=== PATIENT | female | born 1930 | race Asian ===

== ENCOUNTER 2016-12-27 08:06 | Inpatient (IN) | payer BC ==
[2016-12-27] VITALS (50 sets, daily range): BP systolic 84–167; BP diastolic 27–114; PULSE 47–125; RESP 12–24; TEMP 97.5; Ht 157.5 cm; Wt 51.7 kg
[~2016-12-27] VITALS: Ht 157.5 cm; Wt 51.7 kg
[~2016-12-27 08:06] MED LIST: ASPI-535 PO; ATOR10TA65 PO; DIGO125T73 PO; FER325 PO; FURO40TA4 PO; GABA300C16 PO; MTF1000T PO; PANT40TA4 PO; SIMV5TAB50 PO; SPIR50TA PO
[2016-12-27] MEDS ORDERED: PANTOPRAZOLE 40 MG INJ IV STA (08:07)
[2016-12-27] MEDS ORDERED: SOD CHLORIDE 0.9% 1,000 ML IV STA (08:07)
[2016-12-27] MEDS ORDERED: ONDANSETRON 4 MG INJ IV STA (08:22)
[2016-12-27] MEDS ORDERED: SOD CHLORIDE 0.9% 250 ML IV ONE (08:22)
[2016-12-27 08:39] LABS: ADD SCAN DIFF NO
[2016-12-27 08:47] LABS: BASOPHIL # 0.1 10^3/ul (0.0-0.1); BASOPHILS % 0.6 % (0.0-2.0); EOSINOPHILS # 0.4 10^3/ul (0.0-0.5); EOSINOPHILS % 2.9 % (0.0-7.0); HEMATOCRIT 21.9 % (37.0-47.0); HEMOGLOBIN 7.3 g/dl (12.0-16.0); LYMPHOCYTES # 2.2 10^3/ul (0.8-2.9); LYMPHOCYTES % 17.3 % (15.0-51.0); MEAN CORPUSCULAR HGB CONC 33.3 g/dl (32.0-37.0); MEAN CORPUSCULAR VOLUME 99.1 fl (82.0-101.0); MEAN PLATELET VOLUME 10.4 fl (7.4-10.4); MONOCYTES % 7.6 % (0.0-11.0); NEUTROPHIL # 8.9 10^3/ul (1.6-7.5); NEUTROPHILS % 70.6 % (39.0-77.0); PLATELET COUNT 166 10^3/UL (140-415); RED BLOOD COUNT 2.21 10^6/ul (4.20-5.40); RED CELL DISTRIBUTION WIDTH 14.8 % (11.5-14.5); WHITE BLOOD COUNT 12.6 10^3/ul (4.8-10.8)
[2016-12-27 08:56] LABS: CHLORIDE 94 mmol/L (97-110); INR 1.34; POTASSIUM 4.6 mmol/L (3.5-5.1); PROTIME 16.7 Sec (12.2-14.2); PT RATIO 1.3; SODIUM 128 mmol/L (135-144)
[2016-12-27 08:57] LABS: PARTIAL THROMBOPLASTIN TIME 30.2 Sec (25.0-35.0)
[2016-12-27 08:58] LABS: BILIRUBIN,INDIRECT 0.3 mg/dl (0-1.1); BILIRUBIN,TOTAL 0.3 mg/dl (0.2-1.3); CREATININE 0.82 mg/dl (0.44-1.00)
[2016-12-27 08:59] LABS: ALANINE AMINOTRANSFERASE 31 IU/L (13-69); ALBUMIN/GLOBULIN RATIO 0.93; ALKALINE PHOSPHATASE 71 IU/L (42-121); ANION GAP 23 (8-16); ASPARTATE AMINO TRANSFERASE 36 IU/L (15-46); BLOOD UREA NITROGEN 20 mg/dl (7-20); CARBON DIOXIDE 16 mmol/L (21-31); GLUCOSE 163 mg/dl (70-220); TOTAL PROTEIN 6.2 g/dl (6.1-8.1)
[2016-12-27 09:00] LABS: CALCIUM 8.6 mg/dl (8.4-10.2)
[2016-12-27 09:13] LABS: TROPONIN-I < 0.012 ng/ml (0.00-0.12)
[2016-12-27] MEDS ORDERED: MIDAZOLAM (DRIP) 50 mg/50 mL 50 ML IV STA (09:53)
[2016-12-27] MEDS ORDERED: SUCCINYLCHOLINE CHLORIDE 100 MG/5 ML SYG IV STA (09:53)
[2016-12-27] MEDS ORDERED: ETOMIDATE 20 MG INJ IV STA (09:53)
[2016-12-27] MEDS ORDERED: HYDROmorphONE 1 MG/ML SYG IV ONE (10:00)
[2016-12-27] MEDS ORDERED: PANTOPRAZOLE IV 80 MG in SOD CHLORIDE 0.9% 100 ML IV STA (10:01)
--- NOTE | 2016-12-27 10:12 | RADRPT ---
PROCEDURE: Noncontrast CT Head. CLINICAL INDICATION: Status post fall. Trauma. TECHNIQUE: Noncontrast CT of the head was obtained. The administered radiation dose was CTDI vol = 42.93 mGy, DLP = 630.2 mGy-cm. One or more of the following dose reduction techniques were used: Aut omated exposure control, Adjustment of the mA and/or kV according to patient size, or Use of iterati ve reconstruction technique. COMPARISON: Noncontrast CT of the head from June 05, 2013. FINDINGS: There is moderate generalized cerebral volume loss. There is mild periventricular hypoattenuation suggesting chronic microvascular ischemic changes. Th ere are mild to moderate vascular calcifications within the intracranial carotid arteries. There is no loss of jackson-white differentiation to suggest acute territorial infarction. There is no acute intracranial hemorrhage or extra-axial fluid collection. There is no mass effect. No midline shift is identified. The orbits are within normal limits. The paranasal sinuses are well aerated. No destructive osseous lesion is identified. IMPRESSION: No significant change. 1. No acute intracranial hemorrhage or extra-axial fluid collection. 2. Moderate generalized cerebral volume loss. 3. Mild chronic microvascular ischemic changes. Further findings as detailed above. RPTAT: PP .Steven Velasco MD, Date Time Electronically viewed and signed by .Steven Velasco MD, MD on 12/27/2016 10:12 .F/
--- NOTE | 2016-12-27 10:29 | RADRPT ---
PROCEDURE: XR Chest. CLINICAL INDICATION: Post intubation TECHNIQUE: Chest AP portable COMPARISON: 07/12/2016 FINDINGS: The endotracheal tube is at the tiffany (pullback 3 cm). The nasogastric tube is in the stomach. The mediastinal structures are unremarkable. There is calcification of the thoracic aorta (consiste nt with atherosclerosis). The heart is normal in size and configuration. The pulmonary vascularity is normal. The lung barton are unremarkable. No consolidation is identified. The pleural spaces are unremarkable. The osseous structures are unremarkable. IMPRESSION: Endotracheal tube at the tiffany (pullback 3 cm) Calcification of the thoracic aorta (consistent with atherosclerosis). No evidence for active cardiopulmonary disease. RPTAT: HGDB .Elmer Valdivia MD, Date Time Electronically viewed and signed by .Elmer Valdivia MD, on 12/27/2016 10:28 .B/
--- NOTE | 2016-12-27 11:07 | RADRPT ---
PROCEDURE: XR Chest. CLINICAL INDICATION: Central line placement. TECHNIQUE: Single frontal view of the chest was obtained COMPARISON: Chest x-ray 12/27/2016. FINDINGS: The soft tissues are normal. There are osteophytes in the thoracic spine. There is a suboptimal is torn effort. The heart, cardiomediastinal silhouette and hilar structures are normal. The pulmonar y vasculature is normal. There are vascular calcifications in the aortic arch. Endotracheal tube re sts about 1 cm superior to the tiffany. The lungs are clear but the left diaphragm is mildly elevated . The costophrenic angles are normal. IMPRESSION: 1. The endotracheal tube rests 1 cm superior to the tiffany. It could be withdrawn about 4 cm for pos itioning closer to T3. 2. A central venous catheter enters from a left subclavian approach with its tip in the superior jackson a cava. 3. Atherosclerosis of the aortic arch. 4. Elevation of the left diaphragm with no evidence of active cardiopulmonary disease in the chest. RPTAT:AAJJ Physician Lambert Date Time Electronically viewed and signed by Physician Lambert on 12/27/2016 11:06 /
[2016-12-27 11:10] LABS: AADO2 Arterial 103.8 mmHg (7.0-24.0); Allen Test ACCEPTAB; Arterial Base Excess -17.9 mmol/L (-3.0-3); Arterial COHb 0.3 % (0.0-3.0); Arterial Fraction of Oxyhgb 98.7 % (93.0-99.0); Arterial HCO3 8.5 mmol/L (22.0-26.0); Arterial MetHb 0.6 % (0.0-1.5); Arterial Total Hemglobin 6.4 g/dl (12.0-18.0); MODE VENT - AC
[2016-12-27] MEDS ORDERED: NORepinephrine 8MG/250 ML (PMX 250 ML IV STA (11:42)
[2016-12-27] MEDS ORDERED: ACETAMINOPHEN 650 MG SUPP PR PRN (12:00)
[2016-12-27] MEDS ORDERED: BISACODYL 10 MG SUPP PR PRN (12:00)
[2016-12-27] MEDS ORDERED: CEFTRIAXONE 1 GM/50 ML (PMX) 50 ML IVPB ONE (12:00)
[2016-12-27] MEDS ORDERED: DOCUSATE SODIUM 100 MG CAP PO PRN (12:00)
[2016-12-27] MEDS ORDERED: HYDROCODONE/APAP (5/325) TAB PO PRN (12:00)
[2016-12-27] MEDS ORDERED: ONDANSETRON 4 MG INJ IV PRN (12:00)
[2016-12-27] MEDS ORDERED: ACETAMINOPHEN 325 MG TAB PO PRN (12:00)
--- NOTE | 2016-12-27 12:14 | ERA ---
ER Documentation Chief Complaint Date/Time DATE: 12/27/16 TIME: 12:13 Chief Complaint BIBA; FOUND DOWN AT HOME. RECENT ESOPHAGEAL ABLATION. VOMITED BLOOD. HPI She is an 86-year-old female with atrial fibrillation, diabetes, and hypertension who presents with vomiting blood. Please note the history and physical exam is limited as the patient is actively vomiting blood at this time. The patient was brought in by ambulance. She was found down at the side of her bed. She was found at 7 AM. She did vomit blood this morning. She came from home. Her family called 911. She takes a baby aspirin daily but says she does not take any other blood thinning medicines. ROS All systems reviewed and are negative except as per history of present illness. Medications Home Meds Reported Medications Metformin* (Glucophage*) 1,000 Mg Tablet, 1000 MG PO DAILY, #30 TAB 07/12/16 Atorvastatin Calcium (Atorvastatin Calcium) 10 Mg Tablet, 10 MG PO QHS, #30 TAB 07/12/16 Pantoprazole* (Pantoprazole*) 40 Mg Tablet.dr, 40 MG PO AC BREAKFAST, TAB 07/12/16 Gabapentin* (Gabapentin*) 300 Mg Capsule, 300 MG PO BID, #60 CAP 07/12/16 Simvastatin* (Simvastatin*) 5 Mg Tablet, 10 MG PO QHS, #30 TAB 07/12/16 Furosemide* (Furosemide*) 40 Mg Tablet, 40 MG PO DAILY, TAB 07/12/16 Spironolactone* (Aldactone*) 50 Mg Tablet, 50 MG PO DAILY, #30 TAB 07/12/16 Aspirin Ec (Aspir 81) 81 Mg Tablet.dr, 81 MG PO DAILY 05/22/12 Digoxin (Digoxin) 125 Mcg Tablet, 125 MCG PO DAILY 05/22/12 Discontinued Scripts Ferrous Sulfate* (Ferrous Sulfate*) 325 Mg Tabec, 325 MG PO BID, #60 TAB Prov:GABI [employer] 07/18/16 Allergies Allergies: Coded Allergies: No Known Drug Allergies (Verified Allergy, Mild, 12/27/16) PMhx/Soc History of Surgery: Yes Anesthesia Reaction: No Hx Neurological Disorder: No Hx Respiratory Disorders: No Hx Cardiac Disorders: Yes (A-fib, HTN) Hx Psychiatric Problems: No Hx Miscellaneous Medical Probl: Yes (A-Fib, HTN, CHF, DM, tricuspid regurgitation, peripheral neuropathy) Hx Alcohol Use: No Hx Substance Use: No Hx Tobacco Use: No Smoking Status: Never smoker FmHx Family History: No diabetes Physical Exam Vitals Vital Signs Date Time Temp Pulse Resp B/P Pulse Ox O2 Delivery O2 Flow Rate FiO2 12/27/16 11:26 87 20 90/38 100 Mechanical Ventilator 12/27/16 11:13 50 12/27/16 10:21 118 20 124/60 100 Mechanical Ventilator 12/27/16 10:16 133 20 100 100 12/27/16 09:45 118 98/48 100 Nasal Cannula 2.0 12/27/16 08:39 118 122/30 100 Nasal Cannula 2.0 12/27/16 08:23 98.4 108 17 141/42 100 12/27/16 08:15 Nasal Cannula 2 Physical Exam Const: Moderate distress secondary to nausea and vomiting Head: Atraumatic Eyes: Pale conjunctiva ENT: Normal External Ears, Nose and Mouth. Neck: Full range of motion..~ No meningismus. Resp: Clear to auscultation bilaterally Cardio: Regular rate and rhythm, no murmurs Abd: Soft, non tender, non distended. Normal bowel sounds Skin: Pale Back: No midline or flank tenderness Ext: No cyanosis, or edema Neur: Awake Result Diagram: 12/27/16 0825 12/27/16 0825 Results 24 hrs Laboratory Tests Test 12/27/16 08:25 12/27/16 09:53 White Blood Count 12.610^3/ul Red Blood Count 2.2110^6/ul Hemoglobin 7.3g/dl Hematocrit 21.9% Mean Corpuscular Volume 99.1fl Mean Corpuscular Hemoglobin 33.0pg Mean Corpuscular Hemoglobin Concent 33.3g/dl Red Cell Distribution Width 14.8% Platelet Count 19607^3/UL Mean Platelet Volume 10.4fl Neutrophils % 70.6% Lymphocytes % 17.3% Monocytes % 7.6% Eosinophils % 2.9% Basophils % 0.6% Nucleated Red Blood Cells % 0.0/100WBC Neutrophils # 8.910^3/ul Lymphocytes # 2.210^3/ul Monocytes # 1.010^3/ul Eosinophils # 0.410^3/ul Basophils # 0.110^3/ul Nucleated Red Blood Cells # 0.010^3/ul Prothrombin Time 16.7Sec Prothrombin Time Ratio 1.3 INR International Normalized Ratio 1.34 Activated Partial Thromboplast Time 30.2Sec Sodium Level 128mmol/L Potassium Level 4.6mmol/L Chloride Level 94mmol/L Carbon Dioxide Level 16mmol/L Anion Gap 23 Blood Urea Nitrogen 20mg/dl Creatinine 0.82mg/dl Glucose Level 163mg/dl Calcium Level 8.6mg/dl Total Bilirubin 0.3mg/dl Direct Bilirubin 0.00mg/dl Indirect Bilirubin 0.3mg/dl Aspartate Amino Transf (AST/SGOT) 36IU/L Alanine Aminotransferase (ALT/SGPT) 31IU/L Alkaline Phosphatase 71IU/L Troponin I < 0.012ng/ml Total Protein 6.2g/dl Albumin 3.0g/dl Globulin 3.20g/dl Albumin/Globulin Ratio 0.93 Blood Gas Specimen Source Blood arterial Arterial Blood Date Drawn 12/27/2016 11:00:57 AM Arterial Blood pH (Temp corrected) 7.201 Arterial Blood pCO2 (Temp correct) 22.1mmhg Arterial Blood pO2 (Temp corrected) 587.1mmHG Arterial Blood HCO3 8.5mmol/L Arterial Blood Base Excess -17.9mmol/L Arterial Blood Oxygen Saturation 99.6mmHG Mike Test ACCEPTAB Arterial Blood Gas Puncture Site Right Radial Arterial Blood Carboxyhemoglobin 0.3% Arterial Blood Methemoglobin 0.6% Blood Gas A-a O2 Differential 103.8mmHg Oxyhemoglobin Percent 98.7% Total Hemoglobin 6.4g/dl Blood Gas Temperature 37.0C Blood Gas Respiration Rate 20.0 Blood Gas Actual Respiration Rate 26 Blood Gas Modality VENT - AC FiO2 100.0% Blood Gas Tidal Volume 450.0mL Blood Gas Low PEEP Setting 5.0cmH2O Blood Gas Critical Value Read Back DR. ANTONIO Blood Gas Notified Whom Andie Blood Gas Notified Time 12/27/2016 11:09:57 AM Current Medications Medications (Trade) Dose Ordered Sig/Yared Route PRN Reason Start Time Stop Time Status Last Admin Dose Admin Sodium Chloride (NS) 1,000 ml @ 1,000 mls/hr Q1H STAT IV 12/27/16 08:07 12/27/16 09:06 DC 12/27/16 08:28 Pantoprazole (Protonix Iv) 40 mg ONCE STAT IV 12/27/16 08:07 12/27/16 08:08 DC 12/27/16 08:28 Ondansetron HCl 8 mg 8 mg ONCE STAT IV 12/27/16 08:22 12/27/16 08:23 DC 12/27/16 08:28 Sodium Chloride (NS) 250 ml @ 0 mls/hr Q0M ONCE IV 12/27/16 08:22 12/27/16 08:23 DC Succinylcholine Chloride (Anectine Syringe) 150 mg ONCE STAT IV 12/27/16 09:53 12/27/16 09:54 DC Etomidate (Amidate) 20 mg ONCE STAT IV 12/27/16 09:53 12/27/16 09:55 DC Hydromorphone HCl 1 mg 1 mg ONCE ONCE IV 12/27/16 10:00 12/27/16 10:01 DC Midazolam HCl 50 ml @ 3 mls/hr ONCE STAT IV 12/27/16 09:53 12/28/16 02:32 12/27/16 10:59 Pantoprazole 80 mg/Sodium Chloride 100 ml @ 10 mls/hr ONCE STAT IV 12/27/16 10:01 12/27/16 20:00 12/27/16 11:09 Pantoprazole/ Sodium Chloride (Protonix Iv/NS) 100 ml @ 10 mls/hr Q10H IV 12/27/16 12:00 UNV Ondansetron HCl (Zofran Inj) 4 mg Q6H PRN IV NAUSEA AND/OR VOMITING 12/27/16 12:00 UNV Albuterol/ Ipratropium (Duoneb) 3 ml Q2H RESP THERAPY PRN NEB SHORTNESS OF BREATH 12/27/16 12:00 UNV Acetaminophen (Tylenol Tab) 650 mg Q6H PRN PO PAIN LEVEL 1-3 OR FEVER 12/27/16 12:00 UNV Acetaminophen (Tylenol Supp) 650 mg Q4H PRN IN PAIN LEVEL 1-3 OR FEVER 12/27/16 12:00 UNV Acetaminophen/ Hydrocodone Bitart ([place] (5/325)) 1 tab Q6H PRN PO PAIN LEVEL 4-6 12/27/16 12:00 UNV Morphine Sulfate (morphine) 1 mg Q4H PRN IV PAIN LEVEL 7-10 12/27/16 12:00 UNV Docusate Sodium (Colace) 100 mg Q12H PRN PO CONSTIPATION 12/27/16 12:00 UNV Bisacodyl 10 mg 10 mg DAILY PRN IN CONSTIPATION 12/27/16 12:00 UNV Norepinephrine 250 ml @ 7.5 mls/hr ONCE STAT IV 12/27/16 11:42 12/28/16 21:01 12/27/16 12:15 Ceftriaxone Sodium 50 ml @ 100 mls/hr ONCE ONCE IVPB 12/27/16 12:00 12/27/16 12:29 Octreotide Acetate/Sodium Chloride (Sandostatin/NS) 100 ml @ 5 mls/hr Q20H IV 12/27/16 12:30 UNV Procedures/MDM EKG read by me: Rate/Rhythm: Atrial fibrillation at a rate of 108 Intervals: Normal Impression: Atrial fibrillation without obvious ischemia CT scan shows no intrarenal hemorrhage per radiology. Chest x-ray negative per radiology. Endotracheal Intubation by me: Pre assessment performed. Pre-oxygenation performed with 100% oxygen RSI: Performed w/o complication or hypoxic events. Medications as ordered. Blade: MAC 4 Glidescope ET Tube: 7.5 cm Depth: 21 cm at the lip Intubation confirmed by colorimetric CO2, equal breath sounds, quiet over the stomach. Central Line Placement by me: Patient consented, sterilely draped, full prep, gown, glove, mask, time out performed. Anesthesia: 1% lidocaine locally Location: Left subclavian Device: Multiple lumen Technique: Seldinger technique. Secured with suture. Results: Venous return from all ports with easy saline flush. No complications. Guide wire retrieved and disposed of. Chest X-ray 1V Interpreted by me: Central line in SVC, Normal soft tissue, No evidence of pneumothorax. ET tube 1 cm above the tiffany. Patient is a 86-year-old female who presents with severe GI bleed. I am concerned about an esophageal or gastric GI bleed. The patient initially was awake and talking when she came the emergency department but over the course of an hour she decompensated and became more confused. She was continuing to vomit blood and therefore the decision was made to intubate the patient. She was intubated for airway protection and respiratory failure. A central line was placed for blood product administration as well as pressors. She was started on Levophed as her blood pressure dropped below a systolic of 90. Ceftriaxone was given empirically for GI bleed. I doubt sepsis at this time. The patient will need intensive care unit. I spoke with Dr. Valenzuela from the panel team for admission as the patient has preferred [employer] insurance. Dr. Valenzuela will contact the application security architect of his choice. The patient has a poor prognosis given her age and significant bleeding. I did order 2 units of O - blood in the emergency department as the typed blood was taking too long. Critical Care: Time: 45 minutes excluding all billable procedures. Treatments/Evaluations: Close monitoring and treatment of unstable vital signs, cardiorespiratory, and neurologic status, while maintaining tight balance of fluid, respiratory, and cardiac interventions. Departure Diagnosis: Primary Impression: Respiratory failure Qualified Code: J96.00 - Acute respiratory failure, unspecified whether with hypoxia or hypercapnia Additional Impressions: GI bleed Qualified Code: K92.2 - Gastrointestinal hemorrhage, unspecified gastrointestinal hemorrhage type Vomiting Qualified Code: K92.0 - Hematemesis with nausea Anemia Qualified Code: D64.9 - Anemia, unspecified type Acidosis Condition: Critical ISAIAH ANTONIO MD Dec 27, 2016 12:14
--- NOTE | 2016-12-27 12:16 | CONS ---
Date/Time of Note Date/Time of Note DATE: 12/27/16 TIME: 12:10 Assessment/Plan Assessment/Plan Additional Assessment/Plan Hematemesis Evaluate GI bleed versus chronic iron deficiency vs other etiology History of esophageal varices Monitor H&H every 8 hours, transfuse 2 units for hemoglobin less than 7.5 Monitor labs Continue PPI and Octreotide drips EGD if clinically indicated, pt's son advised of R/B/A to procedure and provide informed consent to proceed History of esophageal varices Status post EGD July 15, 2016 : 1. Large grade IV/IV esophageal varices. 2. Post-endoscopic variceal ligation x7. Liver cirrhosis Etiology unknown Previous hepatitis panel negative Type 2 diabetes Management per Primary History of Afib Recommend cardiology consult Patient currently on aspirin Further recommendations depend on clinical course Patient seen in collaboration with Dr. Bishop Consultation Date/Type/Reason Admit Date/Time Type of Consultation: Gastroenterology Reason for Consultation Acute anemia Hx of Present Illness Mrs. Ami Swan presented to the ED secondary to hematemesis. Spoke to patient's son. Per patient's son, he found his mother laying down in the pool of blood. Patient son states his mother has been symptom-free since last EGD in June. He denies she was experiencing any abdominal pain, nausea, vomiting , fever, chills, chest pain, and shortness of breath. Patient patient previously had EGD in June 2016 and had grade IV/IV. Patient noted to have liver cirrhosis but etiology unknown. Patient has PMH of atrial fibrillation and currently on aspirin, type 2 diabetes, and liver cirrhosis. Past Surgical History Past Surgical Hx: no surgical history Social History Smoking Status: Never smoker Exam/Review of Systems Vital Signs Vitals Vital Signs Date Time Temp Pulse Resp B/P Pulse Ox O2 Delivery O2 Flow Rate FiO2 12/27/16 11:26 87 20 90/38 100 Mechanical Ventilator 12/27/16 11:13 50 12/27/16 09:45 2.0 12/27/16 08:23 98.4 Exam Constitutional: nonverbal Psych: nl mood/affect Head: normocephalic Eyes: EOMI, nl conjunctiva, nl lids ENMT: nl external ears & nose, nl lips & teeth, nl nasal mucosa & septum Respiratory: Intubated Cardiovascular: regular rate and rhythm Gastrointestinal: soft, epigastric tender Musculoskeletal: nl extremities to inspection Neurological: WET CHEMISTRY ANALYST II-XII intact Results Result Diagram: 12/27/16 0825 12/27/16 0825 Results 24 hrs Laboratory Tests Test 12/27/16 08:25 12/27/16 09:53 White Blood Count 12.6 #H Red Blood Count 2.21 #L Hemoglobin 7.3 L Hematocrit 21.9 L Mean Corpuscular Volume 99.1 Mean Corpuscular Hemoglobin 33.0 Mean Corpuscular Hemoglobin Concent 33.3 Red Cell Distribution Width 14.8 H Platelet Count 166 Mean Platelet Volume 10.4 Neutrophils % 70.6 Lymphocytes % 17.3 Monocytes % 7.6 Eosinophils % 2.9 Basophils % 0.6 Nucleated Red Blood Cells % 0.0 Neutrophils # 8.9 H Lymphocytes # 2.2 Monocytes # 1.0 H Eosinophils # 0.4 Basophils # 0.1 Nucleated Red Blood Cells # 0.0 Prothrombin Time 16.7 H Prothrombin Time Ratio 1.3 INR International Normalized Ratio 1.34 Activated Partial Thromboplast Time 30.2 Sodium Level 128 L Potassium Level 4.6 Chloride Level 94 L Carbon Dioxide Level 16 L Anion Gap 23 H Blood Urea Nitrogen 20 Creatinine 0.82 Glucose Level 163 Calcium Level 8.6 Total Bilirubin 0.3 Direct Bilirubin 0.00 Indirect Bilirubin 0.3 Aspartate Amino Transf (AST/SGOT) 36 Alanine Aminotransferase (ALT/SGPT) 31 Alkaline Phosphatase 71 Troponin I < 0.012 Total Protein 6.2 Albumin 3.0 L Globulin 3.20 Albumin/Globulin Ratio 0.93 Blood Gas Specimen Source Blood arterial Arterial Blood Date Drawn 12/27/2016 11:00:57 AM Arterial Blood pH (Temp corrected) 7.201 *L Arterial Blood pCO2 (Temp correct) 22.1 L Arterial Blood pO2 (Temp corrected) 587.1 H Arterial Blood HCO3 8.5 *L Arterial Blood Base Excess -17.9 L Arterial Blood Oxygen Saturation 99.6 Mike Test ACCEPTAB Arterial Blood Gas Puncture Site Right Radial Arterial Blood Carboxyhemoglobin 0.3 Arterial Blood Methemoglobin 0.6 Blood Gas A-a O2 Differential 103.8 H Oxyhemoglobin Percent 98.7 Total Hemoglobin 6.4 L Blood Gas Temperature 37.0 Blood Gas Respiration Rate 20.0 Blood Gas Actual Respiration Rate 26 Blood Gas Modality VENT - AC FiO2 100.0 Blood Gas Tidal Volume 450.0 Blood Gas Low PEEP Setting 5.0 Blood Gas Critical Value Read Back DR. ANTONIO Blood Gas Notified Whom Andie Blood Gas Notified Time 12/27/2016 11:09:57 AM Medications Medications Current Medications Pantoprazole/ Sodium Chloride (Protonix Iv/NS) 100 ml @ 10 mls/hr Q10H IV ; Start 12/27/16 at 12:00; Status UNV Ondansetron HCl (Zofran Inj) 4 mg Q6H PRN IV NAUSEA AND/OR VOMITING; Start at 12:00; Status UNV Acetaminophen (Tylenol Tab) 650 mg Q6H PRN PO PAIN LEVEL 1-3 OR FEVER; Start at 12:00; Status UNV Acetaminophen (Tylenol Supp) 650 mg Q4H PRN PA PAIN LEVEL 1-3 OR FEVER; Start 12/27/16 at 12:00; Status UNV Acetaminophen/ Hydrocodone Bitart ([place] (5/325)) 1 tab Q6H PRN PO PAIN LEVEL 4 -6; Start 12/27/16 at 12:00; Status UNV Morphine Sulfate (morphine) 1 mg Q4H PRN IV PAIN LEVEL 7-10; Start 12/27/16 at 12:00; Status UNV Docusate Sodium (Colace) 100 mg Q12H PRN PO CONSTIPATION; Start 12/27/16 at 12: 00; Status UNV Bisacodyl (Dulcolax Supp) 10 mg DAILY PRN PA CONSTIPATION; Start 12/27/16 at 12 :00; Status UNV MADIHA PEREZ Dec 27, 2016 12:16
[2016-12-27] MEDS ORDERED: AMIODARONE 900 MG in DEXTROSE 5% 482 ML IV SCH (13:30)
[2016-12-27] MEDS ORDERED: AMIODARONE 150MG/D5W BOLUS 100 ML IV ONE (13:30)
[2016-12-27] MEDS: PANTOPRAZOLE IV 80 MG in SOD CHLORIDE 0.9% 100 ML IV SCH ×2 (14:20→19:18)
[2016-12-27 14:27] LABS: HEMOGLOBIN 10.1 g/dl (12.0-16.0)
[2016-12-27] MEDS ORDERED: NA BICARBONATE 8.4% 50 ML SYG IV ONE (14:30)
[2016-12-27] MEDS ORDERED: FENTAnyl 50 MCG/ML VIAL ONE (14:34)
[2016-12-27] MEDS ORDERED: PROPOFOL 20 ML ONE (14:34)
[2016-12-27] MEDS ORDERED: ETOMIDATE 20 MG INJ ONE (14:35)
[2016-12-27] MEDS: OCTREOTIDE 1 MG in SOD CHLORIDE 0.9% 95 ML IV SCH (14:40)
--- NOTE | 2016-12-27 14:43 | OPR ---
Date/Time of Note Date/Time of Note DATE: 12/27/16 TIME: 14:41 Operative Report Procedure Date: Dec 27, 2016 Preoperative Diagnosis hematemesis Postoperative Diagnosis 1. bleeding esophageal varices, s/p band ligation x 4 2. oozing of severe portal hypertensive gastropathy, unable to perform banding as the oozing of blood involves the whole stomach. Operation Performed EGD with band ligation x 4 with hemostasis Surgeon: GAL LIZARRAGA MD Anesthesia: MAC Anesthesiologist: ERIC CAMARA MD Estimated Blood Loss: 0 - 10 ml's Complications: None Pt Condition Post Procedure: critical Disposition: other (ICU bed and status) Indications hematemesis Operative\Procedure Findings 1. bleeding esophageal varices, s/p band ligation x 4 2. oozing of severe portal hypertensive gastropathy, unable to perform banding as the oozing of blood involves the whole stomach. Procedure Description TECHNIQUE: After informed consent, with the patient/relatives understanding the procedure, its indications, potential risks and complications, including but not limited to: allergic reaction, bleeding, perforation or infection, and after all pertinent questions were answered to the patients satisfaction, the patient/relatives signed witnessed informed consent. Following this, premedication was administered slowly IV push under careful cardiovascular and respiratory monitoring with pulse oximetry, automatic blood pressure and clinical research monitor. Once the sedative effect was achieved the patient was place in the left lateral decubitus, the panendoscope was introduced and advanced under visual control. Careful examination of the upper gastrointestinal tract, both on insertion as well as withdrawal of the instrument disclosed the following findings: ESOPHAGUS: The esophagus is remarkable with presence of huge grade IV/IV esophageal varices (3 columns) with stigmata of recent bleeding and active variceal squirt of blood. STOMACH: The gastric mucosa is congested and erythematous indicative of portal hypertensive gastropathy. There is diffuse oozing of blood from the severe portal hypertensive gastropathy. PYLORUS: The pylorus appears patent and within normal limits, with no evidence of gastric outlet obstruction. DUODENUM: The duodenal mucosa was carefully examined in the duodenal bulb as well as the second portion of the duodenum and appears unremarkable with no evidence of duodenitis, ulcer or neoplasm. The instrument was withdrawn. The banding device was applied to the tip of the endoscope and 4 bands were applied to the varices that were squirting blood with hemostasis. I also placed bands to the most prominent variceal channels with no evidence of residual bleeding or complication. The instrument was withdrawn reexamining the mucosa in detail. No additional abnormalities are noted. GAL LIZARRAGA MD Dec 27, 2016 14:43
--- NOTE | 2016-12-27 14:49 | CONS ---
DATE OF ADMISSION: 12/27/2016 DATE OF CONSULTATION: 12/27/2016 TYPE OF CONSULTATION: Pulmonary. REASON FOR CONSULTATION: Ventilator management. Thank you, Dr. Valenzuela, for this consultation. HISTORY OF PRESENT ILLNESS: This is an 86-year-old lady with multiple medical problems, presented t o the emergency room with vomiting bright red blood. Currently, on admission she was hemodyna mically stable. She has a history of diabetes, hypertension, hyperlipidemia, atrial fibrillation on aspirin but no other anticoagulants. Currently, patient is intubated on mechanical ventilation, un able to obtain further details. PAST MEDICAL HISTORY: As above. MEDICATIONS: Per chart. ALLERGIES: NONE. SOCIAL HISTORY: Nonsmoker, no alcohol, no history of drug use. FAMILY HISTORY: Noncontributory. SYSTEMS REVIEW: A 14-point review of systems currently unable to perform. PHYSICAL EXAMINATION: GENERAL: Chronically ill appearing lady, intubated on mechanical ventilation, appears comfortable a t rest. VITAL SIGNS: Temperature 98, pulse is 110, blood pressure is 110/70, O2 saturation 96% on 50% FIO2. NECK: Supple. No JVD or lymphadenopathy. CARDIAC: S1, S2, no added sounds or murmurs. CHEST: Diminished air entry bilaterally. ABDOMEN: Soft, nontender. No guarding or rebound. EXTREMITIES: No cyanosis, clubbing, or edema. NEUROLOGIC: Generalized weakness. LABORATORY DATA: White count 12.6, hemoglobin 7.3, platelets 166. BUN 20, creatinine 0.82. Initia l ABG: pH 7.2, pCO2 of 22, PaO2 of 587, bicarbonate 8.5. INR was 1.34. IMAGING: Chest x-ray was reviewed, shows no acute cardiopulmonary problems. IMPRESSION: 1. Acute gastrointestinal bleed. 2. Severe metabolic acidosis likely hypoperfusion. 3. Intubated for airway protection. 4. Incomplete data. PLAN: 1. Continue mechanical ventilation. 2. Intravenous bicarbonate for correction of metabolic acidosis. 3. Transfusion of packed red blood cells. 4. Vasopressor support as needed. 5. Emergent endoscopy. 6. DVT and GI prophylaxis. Dictated By: YULIET MCCALL/WALT Conf#: [id number] DID#: [id number]
[2016-12-27] MEDS ORDERED: VANCOMYCIN IV PER PHARMACY XX SCH (15:00)
--- NOTE | 2016-12-27 15:26 | CONS ---
Date/Time of Note Date/Time of Note DATE: 12/27/16 TIME: 15:15 Assessment/Plan Assessment/Plan Chief Complaint/Hosp Course Assessment: Atrial fibrillation, likely chronic - rapid ventricular response Acute gastrointestinal bleeding with hematemesis - per gastroenterology Esophageal varices Liver cirrhosis Diabetes mellitus Intubated for airway protection - on mechanical ventilation Recommendations: -continue amiodarone drip for rate control (unlikely to cardiovert as atrial fibrillation is probably chronic) -digoxin 0.25mg IV daily -holding aspirin due to bleeding -obtain transthoracic echocardiogram Problems: Consultation Date/Type/Reason Admit Date/Time Type of Consultation: Cardiology Reason for Consultation atrial fibrillation with rapid ventricular response Hx of Present Illness The patient is an 86 year-old female who presents with hematemesis. The patient has been intubated for airway protection, and is unable to provide any history. Per medical records, she was found laying down in a pool of blood by her son. She has a history of atrial fibrillation and is digoxin and aspirin as an outpatient, but not chronic anticoagulation. She is noted to be in atrial fibrillation with a rapid ventricular response since admission. Unable to obtain, patient is intubated. Past Medical History Atrial fibrillation Diabetes mellitus Liver cirrhosis Esophageal varices Past Surgical History Unable to obtain Family History Significant Family History: no pertinent family hx (noncontributory given advanced age) Social History Unable to obtain Exam/Review of Systems Vital Signs Vitals Vital Signs Date Time Temp Pulse Resp B/P Pulse Ox O2 Delivery O2 Flow Rate FiO2 12/27/16 13:30 77 22 100 50 12/27/16 12:28 97.5 111/44 Mechanical Ventilator 12/27/16 09:45 2.0 Exam Constitutional: other (intubated), No alert Head: atraumatic, normocephalic ENMT: intubated Neck: supple Respiratory: clear to auscultation, normal air movement Cardiovascular: irregular rhythm Gastrointestinal: distended, soft Musculoskeletal: nl extremities to inspection Extremities: No clubbing, No edema Neurological: No nl mental status, No nl speech Results Result Diagram: 12/27/16 1410 12/27/16 0825 Results 24 hrs Laboratory Tests Test 12/27/16 08:25 12/27/16 09:53 12/27/16 14:10 White Blood Count 12.6 #H Red Blood Count 2.21 #L Hemoglobin 7.3 L 10.1 #L Hematocrit 21.9 L 29.0 #L Mean Corpuscular Volume 99.1 Mean Corpuscular Hemoglobin 33.0 Mean Corpuscular Hemoglobin Concent 33.3 Red Cell Distribution Width 14.8 H Platelet Count 166 Mean Platelet Volume 10.4 Neutrophils % 70.6 Lymphocytes % 17.3 Monocytes % 7.6 Eosinophils % 2.9 Basophils % 0.6 Nucleated Red Blood Cells % 0.0 Neutrophils # 8.9 H Lymphocytes # 2.2 Monocytes # 1.0 H Eosinophils # 0.4 Basophils # 0.1 Nucleated Red Blood Cells # 0.0 Prothrombin Time 16.7 H Prothrombin Time Ratio 1.3 INR International Normalized Ratio 1.34 Activated Partial Thromboplast Time 30.2 Sodium Level 128 L Potassium Level 4.6 Chloride Level 94 L Carbon Dioxide Level 16 L Anion Gap 23 H Blood Urea Nitrogen 20 Creatinine 0.82 Glucose Level 163 Calcium Level 8.6 Total Bilirubin 0.3 Direct Bilirubin 0.00 Indirect Bilirubin 0.3 Aspartate Amino Transf (AST/SGOT) 36 Alanine Aminotransferase (ALT/SGPT) 31 Alkaline Phosphatase 71 Troponin I < 0.012 < 0.012 Total Protein 6.2 Albumin 3.0 L Globulin 3.20 Albumin/Globulin Ratio 0.93 Blood Gas Specimen Source Blood arterial Arterial Blood Date Drawn 12/27/2016 11:00:57 AM Arterial Blood pH (Temp corrected) 7.201 *L Arterial Blood pCO2 (Temp correct) 22.1 L Arterial Blood pO2 (Temp corrected) 587.1 H Arterial Blood HCO3 8.5 *L Arterial Blood Base Excess -17.9 L Arterial Blood Oxygen Saturation 99.6 Mike Test ACCEPTAB Arterial Blood Gas Puncture Site Right Radial Arterial Blood Carboxyhemoglobin 0.3 Arterial Blood Methemoglobin 0.6 Blood Gas A-a O2 Differential 103.8 H Oxyhemoglobin Percent 98.7 Total Hemoglobin 6.4 L Blood Gas Temperature 37.0 Blood Gas Respiration Rate 20.0 Blood Gas Actual Respiration Rate 26 Blood Gas Modality VENT - AC FiO2 100.0 Blood Gas Tidal Volume 450.0 Blood Gas Low PEEP Setting 5.0 Blood Gas Critical Value Read Back DR. ANTONIO Blood Gas Notified Whom Andie Blood Gas Notified Time 12/27/2016 11:09:57 AM Lactic Acid Level 9.3 *H Medications Medications Current Medications Pantoprazole/ Sodium Chloride (Protonix Iv/NS) 100 ml @ 10 mls/hr Q10H IV Last administered on 12/27/16t 14:20; Admin Dose 10 MLS/HR; Start 12/27/16 at 12 :00 Ondansetron HCl (Zofran Inj) 4 mg Q6H PRN IV NAUSEA AND/OR VOMITING; Start at 12:00 Acetaminophen (Tylenol Tab) 650 mg Q6H PRN PO PAIN LEVEL 1-3 OR FEVER; Start at 12:00 Acetaminophen (Tylenol Supp) 650 mg Q4H PRN [place] PAIN LEVEL 1-3 OR FEVER; Start 12/27/16 at 12:00 Acetaminophen/ Hydrocodone Bitart ([place] (5/325)) 1 tab Q6H PRN PO PAIN LEVEL 4 -6; Start 12/27/16 at 12:00 Morphine Sulfate (morphine) 1 mg Q4H PRN [place] PAIN LEVEL 7-10; Start 12/27/16 at 12:00 Docusate Sodium (Colace) 100 mg Q12H PRN PO CONSTIPATION; Start 12/27/16 at 12: 00 Bisacodyl 10 mg 10 mg DAILY PRN [place] CONSTIPATION; Start 12/27/16 at 12:00 Octreotide Acetate 1 mg/ Sodium Chloride 100 ml @ 5 mls/hr Q20H IV ; Start 12/27 at 12:30 Amiodarone HCl 900 mg/Dextrose 500 ml @ 0 mls/hr Q0M IV ; Start 12/27/16 at 13: 30; Stop 12/28/16 at 13:29 Sodium Bicarbonate 100 meq/Dextrose/ Sodium Chloride 1,100 ml @ 100 mls/hr Q11H IV ; Start 12/27/16 at 15:30 Piperacillin Sod/ Tazobactam Sod (Zosyn 3.375gm/ 100 ml (Pmx)) 100 ml @ 200 mls /hr Q8 IVPB ; Start 12/27/16 at 22:00; Status UNV Digoxin (Digoxin) 0.125 mg DAILY PO ; Start 12/28/16 at 09:00; Status UNV Insulin Aspart (Novolog Insulin Pen) NOVOLOG *MILD* ALGORI... Q4 SC ; Start at 17:00; Status UNV Miscellaneous Information (* Miscellaneous Pharmacy Order) HYPOGLYCEMIA PROTOCOL w... ONCE ONCE XX ; Start 12/27/16 at 15:00; Stop 12/27/16 at 15:01 Miscellaneous Information (* Miscellaneous Pharmacy Order) Discontinue Glyburide , Glipizide,... ONCE ONCE XX ; Start 12/27/16 at 15:00; Stop 12/27/16 at 15:01 ; Status UNV Miscellaneous Information (* Miscellaneous Pharmacy Order) Discontinue all previ... ONCE ONCE XX ; Start 12/27/16 at 15:00; Stop 12/27/16 at 15:01; Status UNV PACO JEAN MD Dec 27, 2016 15:25
--- NOTE | 2016-12-27 15:47 | HP ---
DATE OF ADMISSION: 12/27/2016 CONSULTANTS: 1. Fruit And Vegetable Packer 2. Ventilation Mechanic 3. Roving Teller CHIEF COMPLAINT: Upper gastrointestinal bleed. The patient was found down at home, recent esophage al ablation. HISTORY OF PRESENT ILLNESS: This is an 86-year-old female with past medical history of atrial fibri llation, diabetes mellitus, hypertension, GI bleed, previous admission in June 2016, dyslipidemia , questionable congestive heart failure whom was found by her family on the floor next to her bed an d had episode of hemetemesis; therefore, 911 was called and patient was brought into the emergency r oom via EMS where her blood pressure was found to be 142/42 which decreased to 98/48. The patient w as immediately placed on Protonix drip and was found to have respiratory distress, was intubated, an d was placed on Levophed. Gastroenterology was consulted. The patient was typed and screened and h as been transfused 2 units of packed red blood cells. Also, the patient was placed on amiodarone, R ocephin, Dilaudid, normal saline, and sodium bicarbonate. In the course of emergency room has been admitted to ICU for further evaluation and treatment. NOTATION: Great amount of information was obtained from the ER note and previous hospitalization no te. The patient is not able to provide me with any information secondary to patient is intubated. According to ER doctor, the patient was altered and very weak and was not able to provide him much i nformation as well. The patient has been admitted to ICU and has been placed on octreotide and Prot paulie drip. She is intubated. NG tube in place with evidence of blood within the NG tube. PAST MEDICAL AND SURGICAL HISTORY: As above per HPI. MEDICATIONS: 1. Aspirin. 2. Lipitor. 3. Digoxin 4. Lasix. 5. Gabapentin. 6. Metformin. 7. Protonix. 8. Simvastatin 9. Aldactone. ALLERGIES: NO KNOWN DRUG ALLERGIES. FAMILY HISTORY: Noncontributory secondary to advanced age. SOCIAL HISTORY: Negative x3 for smoking, alcohol, illicit drugs. Apparently she lives at home with her family. REVIEW OF SYSTEMS: As above per HPI. The patient positive for hematemesis. Otherwise, the 12 revi ew of systems has been found to be negative. PHYSICAL EXAMINATION: VITAL SIGNS: Temperature 97.5, pulse 110, respirations 20, blood pressure 111/44, on Levophed at 6 mcg. Oxygen 100% on FIO2 50%, intubated. GENERAL APPEARANCE: The patient is lying in the bed, sedated, intubated, minimal response to pain a nd verbal stimuli, although the patient moves her body spontaneously. EYES, EARS, NOSE, AND THROAT: Conjunctivae and lids are normal. Pupils are sluggish to light. Ext raocular motor is not assessable. NECK: Supple. Trachea is midline. LUNGS: Positive crackles, no rales, no wheezing. CHEST: Normal expansion of thorax during inspiration. CARDIOVASCULAR: AFib, rate controlled. No edema. No gallop Normal S1, S2. GASTROINTESTINAL: Abdomen is soft, nontender, not distended. Bowel sounds present. There is an um bilical hernia that is about 6 x 6 cm, easily reducible. GENITOURINARY: There is a Obrien in place. Normal external genitalia. MUSCULOSKELETAL: Upper and lower extremities within normal limits. No edema. NEUROLOGIC: Deferred. The patient is sedated. LABORATORIES: WBC 12.6, hemoglobin 7.3, hematocrit 21.9, platelets 166. Sodium 128, potassium 4.6, chloride 94, bicarbonate 16, BUN 23, creatinine 0.82, glucose 163. LFTs within normal limits. Alb umin 3.0, troponin 0.012. ASSESSMENT AND PLAN: 1. Upper gastrointestinal bleed. Gastroenterology has been consulted. The patient has been placed on IV octreotide and IV Protonix. The patient is planned for upper endoscopy to follow up his marito mmendations. 2. Severe metabolic acidosis, status post bicarbonate drip. Pulmonology has been consulted. We wi ll continue to monitor the patient's bicarbonate and ABG. 3. Hyponatremia. Continue IV fluid. Follow up renal panel and electrolytes in a.m. 4. History of atrial fibrillation. Cardiology has been consulted. At this time, we will hold bloo d pressure since the hypotension. 5. Sepsis with lactic acid of 6 and prelim reading. The patient has been started on Zosyn and vanc omycin, IV fluid. Follow up lactic acid level. 6. Anemia, likely secondary to gastrointestinal bleed. The patient has been typed and crossed and transfused 2 units of packed red blood cell. At this time, hemoglobin is 10.1, hematocrit 29.0. Co ntinue to monitor hemoglobin and hematocrit. 7. Dyslipidemia. Restart statin when patient is able to tolerate p.o. intake. 8. Diabetes mellitus. Place the patient on insulin sliding scale. Hold metformin at this time sec ondary to lactic acidosis. 9. Questionable congestive heart failure. Cardiology has been consulted and will follow up his rec ommendation. 10. For deep venous thrombosis prophylaxis, on sequential compression devices, refrain from using a ny pharmacologic DVT prophylaxis secondary to gastrointestinal bleed. Dictated By: OZIEL HAMPTON MD PN/NTS Conf#: [id number] DID#: [id number]
[2016-12-27 16:27] LABS: AADO2 Arterial 98.9 mmHg (7.0-24.0); Allen Test ACCEPTAB; Arterial Base Excess -7.2 mmol/L (-3.0-3); Arterial COHb 0.3 % (0.0-3.0); Arterial Fraction of Oxyhgb 98.1 % (93.0-99.0); Arterial HCO3 13.9 mmol/L (22.0-26.0); Arterial MetHb 0.4 % (0.0-1.5); MODE VENT - AC
[2016-12-27] MEDS ORDERED: DEXTROSE 50% 50 ML SYRINGE IV PRN ×2 (16:30)
[2016-12-27] MEDS ORDERED: GLUCOSE GEL 15 GRAM TUBE BUCCAL PRN (16:30)
[2016-12-27] MEDS ORDERED: GLUCOSE GEL 15 GRAM TUBE PO PRN ×2 (16:30)
[2016-12-27] MEDS ORDERED: GLUCAGON 1 MG INJ IM PRN (16:30)
[2016-12-27] MEDS: SODIUM BICARBONATE (IV ADD) 100 MEQ in DEXTROSE 5%-0.45% NACL 1,000 ML IV SCH (17:00)
[2016-12-27] MEDS ORDERED: VANCOMYCIN 1.25 GM in SOD CHLORIDE 0.9% 250 ML IVPB ONE (17:00)
[2016-12-27] MEDS: DIGOXIN 500 MCG INJ IV SCH (17:01)
[2016-12-27] MEDS: PIPER-TAZO 2.25 GM (PMX) 50 ML IVPB SCH ×2 (17:02→20:49)
[2016-12-27] MEDS: INSULIN ASPART [NOVOLOG] 3 ML PEN SC SCH ×2 (18:10→21:09)
[2016-12-27 18:27] LABS: HEMATOCRIT 28.1 % (37.0-47.0); HEMOGLOBIN 9.8 g/dl (12.0-16.0)
[2016-12-27] MEDS: MIDAZOLAM (DRIP) 50 mg/50 mL 50 ML IV SCH (19:37)
[2016-12-28] VITALS (105 sets, daily range): BP systolic 99–156; BP diastolic 27–118; PULSE 59–120; RESP 17–30
[2016-12-28 00:20] LABS: HEMATOCRIT 24.4 % (37.0-47.0); HEMOGLOBIN 8.9 g/dl (12.0-16.0)
[2016-12-28] MEDS: PIPER-TAZO 2.25 GM (PMX) 50 ML IVPB SCH ×4 (00:59→17:17)
[2016-12-28] MEDS: INSULIN ASPART [NOVOLOG] 3 ML PEN SC SCH ×6 (01:15→20:06)
[2016-12-28] MEDS: SODIUM BICARBONATE (IV ADD) 100 MEQ in DEXTROSE 5%-0.45% NACL 1,000 ML IV SCH ×3 (02:30→16:25)
[2016-12-28 05:09] LABS: ADD SCAN DIFF NO
[2016-12-28] MEDS: MIDAZOLAM (DRIP) 50 mg/50 mL 50 ML IV SCH (05:11)
[2016-12-28 05:32] LABS: POTASSIUM 5.1 mmol/L (3.5-5.1)
[2016-12-28 05:35] LABS: CREATININE 1.01 mg/dl (0.44-1.00)
[2016-12-28 05:36] LABS: MAGNESIUM 1.2 mg/dl (1.7-2.5)
[2016-12-28 05:42] LABS: IRON 149 ug/dl (35-150)
[2016-12-28 05:52] LABS: TOTAL IRON BINDING CAPACITY 249 ug/dl (241-421)
[2016-12-28] MEDS: PANTOPRAZOLE IV 80 MG in SOD CHLORIDE 0.9% 100 ML IV SCH ×2 (05:57→16:40)
[2016-12-28 06:06] LABS: THYROID STIMULATING HORMONE 1.39 MIU/L (0.465-4.680)
[2016-12-28] MEDS ORDERED: MAGNESIUM SULFATE 4 GM/100 ML 100 ML IVPB ONE (06:30)
[2016-12-28 08:26] LABS: ABNORMAL IP MESSAGE 1; HEMATOCRIT 22.2 % (37.0-47.0); MEAN CORPUSCULAR HEMOGLOBIN 31.9 pg (29.0-33.0); MEAN CORPUSCULAR VOLUME 88.4 fl (82.0-101.0); MEAN PLATELET VOLUME 10.6 fl (7.4-10.4); PLATELET COUNT 88 10^3/UL (140-415); RED BLOOD COUNT 2.51 10^6/ul (4.20-5.40); RED CELL DISTRIBUTION WIDTH 15.6 % (11.5-14.5); WHITE BLOOD COUNT 16.2 10^3/ul (4.8-10.8)
[2016-12-28] MEDS: OCTREOTIDE 1 MG in SOD CHLORIDE 0.9% 95 ML IV SCH (08:33)
[2016-12-28] MEDS ORDERED: DIGOXIN 0.125 MG TAB PO SCH (09:00)
--- NOTE | 2016-12-28 09:17 | PN ---
Date/Time of Note Date/Time of Note DATE: 12/28/16 TIME: 09:13 Assessment/Plan VTE Prophylaxis VTE Prophylaxis Intervention: contraindicated (Upper GI bleed in a patient with cirrhosis and varices) Lines/Catheters [facility] Central Line Central line still needed: Yes (Upper GI bleed in patient with cirrhosis and varices at extreme risk) Urinary Cath still in place: No Assessment/Plan Problems: (1) Diabetic peripheral neuropathy associated with type 2 diabetes mellitus Status: Chronic Comment: Noted. No indication to start pharmaceutical therapy at this moment; diabetes is adequately controlled on current regimen (2) Chronic atrial fibrillation with rapid ventricular response Status: Chronic Comment: At this time rate control is done with medications. Please note anticoagulation in this patient will be very high risk; please note the patient has an atrial septal defect (3) Upper GI hemorrhage Status: Acute Comment: GI has been consulted. It is quite probable but not yet fully established with this is a variceal bleed on the basis of the cirrhosis and portal hypertension (4) Diabetes mellitus type 2 in nonobese Status: Chronic Comment: Regimen being adjusted to control sugars (5) Esophageal varices in cirrhosis Status: Chronic Comment: Noted. Please note that this is a cryptogenic cirrhosis with negative hepatitis serologies. Patient reportedly has no history of alcohol consumption. Is quite possible this is a long-term sequelae of nonalcoholic fatty liver disease however this would not change therapeutics at this time (6) Anemia Status: Acute Comment: Noted. Patient has received transfusion will be transfused more if needed Qualifiers: Anemia type: unspecified type Qualified Code: D64.9 - Anemia, unspecified type (7) Respiratory failure Status: Acute Comment: Pulmonary consult appreciated managing Qualifiers: Chronicity: acute Respiratory failure complication: unspecified whether with hypoxia or hypercapnia Qualified Code: J96.00 - Acute respiratory failure , unspecified whether with hypoxia or hypercapnia Subjective 24 Hr Interval Summary Free Text/Dictation Patient is intubated and receiving another echocardiogram now. Please see the echocardiogram report from last year. Subjective hx not possible: pt non-verbal, pt critical status Exam/Review of Systems Vital Signs Vitals Vital Signs Date Time Temp Pulse Resp B/P Pulse Ox O2 Delivery O2 Flow Rate FiO2 12/28/16 06:45 96 20 135/43 100 12/28/16 06:00 Mechanical Ventilator 12/28/16 05:10 35 12/28/16 04:00 99.7 12/27/16 09:45 2.0 Intake and Output 12/27/16 12/27/16 12/28/16 15:00 23:00 07:00 Intake Total 1795.15 ml 1165.85 ml 1056.9 ml Output Total 1015 ml 290 ml 225 ml Balance 780.15 ml 875.85 ml 831.9 ml Exam Eyes: EOMI, nl conjunctiva, nl lids, nl sclera Neck: non-tender, supple Respiratory: clear to auscultation, normal air movement Cardiovascular: nl pulses, regular rate and rhythm Gastrointestinal: nl liver, spleen, non-tender, soft Extremities: other (Slight decrease in distal pulses in the dorsalis pedis and posterior tibialis. In addition there are changes of chronic neuropathy. I cannot do the formal neurologic exam to the patient being intubated and sedated) Results Result Diagram: 12/28/16 0806 12/28/16 0447 Results 24 hrs Laboratory Tests Test 12/27/16 09:53 12/27/16 14:10 12/27/16 16:00 12/27/16 17:52 Blood Gas Specimen Source Blood arterial Blood arterial Arterial Blood Date Drawn 12/27/2016 11:00:57 AM 12/27/2016 4:15:07 PM Arterial Blood pH (Temp corrected) 7.201 *L 7.503 H Arterial Blood pCO2 (Temp correct) 22.1 L 18.1 L Arterial Blood pO2 (Temp corrected) 587.1 H 237.2 H Arterial Blood HCO3 8.5 *L 13.9 L Arterial Blood Base Excess -17.9 L -7.2 L Arterial Blood Oxygen Saturation 99.6 98.8 Mike Test ACCEPTAB ACCEPTAB Arterial Blood Gas Puncture Site Right Radial Right Radial Arterial Blood Carboxyhemoglobin 0.3 0.3 Arterial Blood Methemoglobin 0.6 0.4 Blood Gas A-a O2 Differential 103.8 H 98.9 H Oxyhemoglobin Percent 98.7 98.1 Total Hemoglobin 6.4 L 11.0 L Blood Gas Temperature 37.0 37.0 Blood Gas Respiration Rate 20.0 20.0 Blood Gas Actual Respiration Rate 26 22 Blood Gas Modality VENT - AC VENT - AC FiO2 100.0 50.0 Blood Gas Tidal Volume 450.0 550.0 Blood Gas Low PEEP Setting 5.0 5.0 Blood Gas Critical Value Read Back DR. ANTONIO Blood Gas Notified Whom Andie BRODEN Blood Gas Notified Time 12/27/2016 11:09:57 AM 12/27/2016 4:26:34 PM Hemoglobin 10.1 #L Hematocrit 29.0 #L Lactic Acid Level 9.3 *H Troponin I < 0.012 Bedside Glucose 181 Test 12/27/16 18:10 12/27/16 21:07 12/27/16 23:59 12/28/16 01:12 Hemoglobin 9.8 L 8.9 L Hematocrit 28.1 L 24.4 L Lactic Acid Level 9.2 *H Troponin I 0.020 0.063 Bedside Glucose 222 H 211 Test 12/28/16 04:47 12/28/16 04:53 12/28/16 08:06 12/28/16 08:26 Sodium Level 127 L Potassium Level 5.1 Chloride Level 96 L Carbon Dioxide Level 22 Anion Gap 14 # Blood Urea Nitrogen 37 #H Creatinine 1.01 H Glucose Level 152 Calcium Level 7.0 L Magnesium Level 1.2 L Iron Level 149 Total Iron Binding Capacity 249 Percent Iron Saturation 60 H Ferritin 107.0 Ammonia 15 Thyroid Stimulating Hormone (TSH) 1.390 Bedside Glucose 183 181 White Blood Count 16.2 #H Red Blood Count 2.51 L Hemoglobin 8.0 L Hematocrit 22.2 L Mean Corpuscular Volume 88.4 Mean Corpuscular Hemoglobin 31.9 Mean Corpuscular Hemoglobin Concent 36.0 Red Cell Distribution Width 15.6 H Platelet Count 88 #L Mean Platelet Volume 10.6 H Neutrophils % 78.6 H Lymphocytes % 10.7 L Monocytes % 9.1 Eosinophils % 0.2 Basophils % 0.4 Nucleated Red Blood Cells % 0.0 Neutrophils # 12.8 H Lymphocytes # 1.7 Monocytes # 1.5 H Eosinophils # 0.0 Basophils # 0.1 Nucleated Red Blood Cells # 0.0 Medications Medications Current Medications Pantoprazole/ Sodium Chloride (Protonix Iv/NS) 100 ml @ 10 mls/hr Q10H IV Last administered on 12/28/16t 05:57; Admin Dose 10 MLS/HR; Start 12/27/16 at 12: 00 Ondansetron HCl (Zofran Inj) 4 mg Q6H PRN IV NAUSEA AND/OR VOMITING; Start at 12:00 Acetaminophen (Tylenol Tab) 650 mg Q6H PRN PO PAIN LEVEL 1-3 OR FEVER; Start at 12:00 Acetaminophen (Tylenol Supp) 650 mg Q4H PRN [place] PAIN LEVEL 1-3 OR FEVER; Start 12/27/16 at 12:00 Acetaminophen/ Hydrocodone Bitart ([place] (5/325)) 1 tab Q6H PRN PO PAIN LEVEL 4 -6; Start 12/27/16 at 12:00 Morphine Sulfate (morphine) 1 mg Q4H PRN IV PAIN LEVEL 7-10; Start 12/27/16 at 12:00 Docusate Sodium (Colace) 100 mg Q12H PRN PO CONSTIPATION; Start 12/27/16 at 12: 00 Bisacodyl 10 mg 10 mg DAILY PRN [place] CONSTIPATION; Start 12/27/16 at 12:00 Octreotide Acetate 1 mg/ Sodium Chloride 100 ml @ 5 mls/hr Q20H IV Last administered on 12/28/16 08:33; Admin Dose 5 MLS/HR; Start 12/27/16 at 12:30 Amiodarone HCl 900 mg/Dextrose 500 ml @ 0 mls/hr Q0M IV Last administered on 14:40; Admin Dose 33.4 MLS/HR; Start 12/27/16 at 13:30; Stop 12/28/16 at 13:29 Sodium Bicarbonate 100 meq/Dextrose/ Sodium Chloride 1,100 ml @ 100 mls/hr Q11H IV Last administered on 12/28/16 04:43; Admin Dose 100 MLS/HR; Start 12/27 at 15:30 Piperacillin Sod/ Tazobactam Sod (Zosyn 2.25gm/ 50ml (Pmx)) 50 ml @ 200 mls/hr Q6 IVPB Last administered on 12/28/16 05:56; Admin Dose 200 MLS/HR; Start 12/27 at 16:00 Insulin Aspart (Novolog Insulin Pen) NOVOLOG *MILD* ALGORI... Q4 SC Last administered on 12/28/16 08:34; Admin Dose 2 UNIT; Start 12/27/16 at 17:00 Digoxin 250 mcg 250 mcg DAILY@13 IV Last administered on 12/27/16 17:01; Admin Dose 250 MCG; Start 12/27/16 at 16:00 Vancomycin HCl/ Sodium Chloride (Vancocin/NS) 150 ml @ 75 mls/hr Q24H IVPB ; Start 12/28/16 at 17:00 Miscellaneous Information 1 ea NOTE XX ; Start 12/27/16 at 16:30 Glucose (Glutose) 15 gm Q15M PRN PO DECREASED GLUCOSE; Start 12/27/16 at 16:30 Glucose (Glutose) 22.5 gm Q15M PRN PO DECREASED GLUCOSE; Start 12/27/16 at 16: 30 Dextrose (D50w Syringe) 25 ml Q15M PRN IV DECREASED GLUCOSE; Start 12/27/16 at 16:30 Dextrose (D50w Syringe) 50 ml Q15M PRN IV DECREASED GLUCOSE; Start 12/27/16 at 16:30 Glucagon (Glucagen) 1 mg Q15M PRN IM DECREASED GLUCOSE; Start 12/27/16 at 16:30 Glucose 15 gm 15 gm Q15M PRN [place] DECREASED GLUCOSE; Start 12/27/16 at 16:30 Midazolam HCl 50 ml @ 1 mls/hr TITRATE IV Last administered on 12/28/16 05:11; Admin Dose 5 MLS/HR; Start 12/27/16 at 19:30 Magnesium Sulfate (Magnesium Sulfate 4 Gm/100 ml) 100 ml @ 25 mls/hr ONCE ONCE IVPB Last administered on 12/28/16 06:35; Admin Dose 25 MLS/HR; Start 12/28 at 06:30; Stop 12/28/16 at 10:29 ABDULKADIR TAYLOR MD Dec 28, 2016 09:17
[2016-12-28] MEDS ORDERED: PHYTONADIONE 10 MG/ML INJ SC ONE (09:30)
[2016-12-28 11:33] LABS: LYMPHOCYTES # 1.8 10^3/ul (0.8-2.9); MONOCYTE # 0.8 10^3/ul (0.3-0.9); NEUTROPHIL # 12.8 10^3/ul (1.6-7.5)
[2016-12-28] MEDS: DIGOXIN 500 MCG INJ IV SCH (12:02)
--- NOTE | 2016-12-28 14:24 | CONS ---
Date/Time of Note Date/Time of Note DATE: 12/28/16 TIME: 14:19 Assessment/Plan Assessment/Plan Chief Complaint/Hosp Course ASSESSMENT 1. Upper gastrointestinal bleed. s/p EGD with band ligation x 4 on 12-27-16 of bleeding esophageal varices. She is also bleeding from portal hypertensive gastropathy but no hemostasis is done as the bleeding from this is diffuse and involves the whole stomach. 2. Severe metabolic acidosis. 3. History of atrial fibrillation. Cardiology has been consulted. At this time, we will hold blood pressure since the hypotension. 4. Sepsis with lactic acid of 6. 5. Anemia, secondary to gastrointestinal bleed. 6. Dyslipidemia. Restart statin when patient is able to tolerate p.o. intake. 7. Diabetes mellitus. Place the patient on insulin sliding scale. Hold metformin at this time secondary to lactic acidosis. 8. Questionable congestive heart failure. GI Recommendations: 1. Continue IV octreotide and IV Protonix gtt. 2. Transfuse PRN hgb less than 8. 3. No NG tube as I placed bands and insertion of NG tube may displace the bands on the varices and lead to massive variceal bleeding. 4. Continue other supportive measures per primary and other consultants 5. poor prognosis Problems: Consultation Date/Type/Reason Admit Date/Time Dec 27, 2016 at 10:02 Initial Consult Date Type of Consultation: GI 24 HR Interval Summary Free Text/Dictation intubated Subjective hx not possible: pt non-verbal, pt critical status Exam/Review of Systems Vital Signs Vitals Vital Signs Date Time Temp Pulse Resp B/P Pulse Ox O2 Delivery O2 Flow Rate FiO2 12/28/16 12:00 84 12/28/16 08:00 40 12/28/16 06:45 20 135/43 100 12/28/16 06:00 Mechanical Ventilator 12/28/16 04:00 99.7 12/27/16 09:45 2.0 Intake and Output 12/27/16 12/27/16 12/28/16 15:00 23:00 07:00 Intake Total 1795.15 ml 1165.85 ml 1056.9 ml Output Total 1015 ml 290 ml 225 ml Balance 780.15 ml 875.85 ml 831.9 ml Exam Constitutional: non-verbal Head: atraumatic, normocephalic Eyes: EOMI, nl conjunctiva, nl lids, nl sclera ENMT: mucosa pink and moist, nl external ears & nose, nl lips & teeth, nl nasal mucosa & septum Neck: non-tender, supple Respiratory: clear to auscultation, normal air movement Cardiovascular: nl pulses, regular rate and rhythm Gastrointestinal: bowel sounds (reduced), non-tender, soft Results Result Diagram: 12/28/16 0806 12/28/16 0447 Results 24 hrs Laboratory Tests Test 12/27/16 16:00 12/27/16 17:52 12/27/16 18:10 12/27/16 21:07 Blood Gas Specimen Source Blood arterial Arterial Blood Date Drawn 12/27/2016 4:15:07 PM Arterial Blood pH (Temp corrected) 7.503 H Arterial Blood pCO2 (Temp correct) 18.1 L Arterial Blood pO2 (Temp corrected) 237.2 H Arterial Blood HCO3 13.9 L Arterial Blood Base Excess -7.2 L Arterial Blood Oxygen Saturation 98.8 Mike Test ACCEPTAB Arterial Blood Gas Puncture Site Right Radial Arterial Blood Carboxyhemoglobin 0.3 Arterial Blood Methemoglobin 0.4 Blood Gas A-a O2 Differential 98.9 H Oxyhemoglobin Percent 98.1 Total Hemoglobin 11.0 L Blood Gas Temperature 37.0 Blood Gas Respiration Rate 20.0 Blood Gas Actual Respiration Rate 22 Blood Gas Modality VENT - AC FiO2 50.0 Blood Gas Tidal Volume 550.0 Blood Gas Low PEEP Setting 5.0 Blood Gas Notified Whom DT Blood Gas Notified Time 12/27/2016 4:26:34 PM Bedside Glucose 181 222 H Hemoglobin 9.8 L Hematocrit 28.1 L Lactic Acid Level 9.2 *H Troponin I 0.020 Test 12/27/16 23:59 12/28/16 01:12 12/28/16 04:47 12/28/16 04:53 Hemoglobin 8.9 L Hematocrit 24.4 L Troponin I 0.063 Bedside Glucose 211 183 Sodium Level 127 L Potassium Level 5.1 Chloride Level 96 L Carbon Dioxide Level 22 Anion Gap 14 # Blood Urea Nitrogen 37 #H Creatinine 1.01 H Glucose Level 152 Calcium Level 7.0 L Magnesium Level 1.2 L Iron Level 149 Total Iron Binding Capacity 249 Percent Iron Saturation 60 H Ferritin 107.0 Ammonia 15 Thyroid Stimulating Hormone (TSH) 1.390 Test 12/28/16 08:06 12/28/16 08:26 12/28/16 10:41 12/28/16 11:49 White Blood Count 16.2 #H Red Blood Count 2.51 L Hemoglobin 8.0 L Hematocrit 22.2 L Mean Corpuscular Volume 88.4 Mean Corpuscular Hemoglobin 31.9 Mean Corpuscular Hemoglobin Concent 36.0 Red Cell Distribution Width 15.6 H Platelet Count 88 #L Mean Platelet Volume 10.6 H Neutrophils % 79.0 H Band Neutrophils % 5.0 Lymphocytes % 11.0 L Monocytes % 5.0 Eosinophils % Basophils % Nucleated Red Blood Cells % 1.0 H Neutrophils # 12.8 H Lymphocytes # 1.8 Monocytes # 0.8 Eosinophils # Basophils # Nucleated Red Blood Cells # Differential Comment MANUAL DIFF Bedside Glucose 181 210 Lactic Acid Level 5.0 *H Medications Medications Current Medications Pantoprazole/ Sodium Chloride (Protonix Iv/NS) 100 ml @ 10 mls/hr Q10H IV Last administered on 12/28/16 05:57; Admin Dose 10 MLS/HR; Start 12/27/16 at 12: 00 Ondansetron HCl (Zofran Inj) 4 mg Q6H PRN IV NAUSEA AND/OR VOMITING; Start at 12:00 Acetaminophen (Tylenol Tab) 650 mg Q6H PRN PO PAIN LEVEL 1-3 OR FEVER; Start at 12:00 Acetaminophen (Tylenol Supp) 650 mg Q4H PRN IN PAIN LEVEL 1-3 OR FEVER; Start 12/27/16 at 12:00 Acetaminophen/ Hydrocodone Bitart ([place] (5/325)) 1 tab Q6H PRN PO PAIN LEVEL 4 -6; Start 12/27/16 at 12:00 Morphine Sulfate (morphine) 1 mg Q4H PRN IV PAIN LEVEL 7-10; Start 12/27/16 at 12:00 Docusate Sodium (Colace) 100 mg Q12H PRN PO CONSTIPATION; Start 12/27/16 at 12: 00 Bisacodyl 10 mg 10 mg DAILY PRN IN CONSTIPATION; Start 12/27/16 at 12:00 Octreotide Acetate 1 mg/ Sodium Chloride 100 ml @ 5 mls/hr Q20H IV Last administered on 12/28/16 08:33; Admin Dose 5 MLS/HR; Start 12/27/16 at 12:30 Sodium Bicarbonate 100 meq/Dextrose/ Sodium Chloride 1,100 ml @ 100 mls/hr Q11H IV Last administered on 12/28/16 04:43; Admin Dose 100 MLS/HR; Start 12/27 at 15:30 Piperacillin Sod/ Tazobactam Sod (Zosyn 2.25gm/ 50ml (Pmx)) 50 ml @ 200 mls/hr Q6 IVPB Last administered on 12/28/16 12:02; Admin Dose 200 MLS/HR; Start 12/27 at 16:00 Insulin Aspart (Novolog Insulin Pen) NOVOLOG *MILD* ALGORI... Q4 SC Last administered on 12/28/16 12:03; Admin Dose 2 UNIT; Start 12/27/16 at 17:00 Digoxin 250 mcg 250 mcg DAILY@13 IV Last administered on 12/28/16 12:02; Admin Dose 250 MCG; Start 12/27/16 at 16:00 Vancomycin HCl/ Sodium Chloride (Vancocin/NS) 150 ml @ 75 mls/hr Q24H IVPB ; Start 12/28/16 at 17:00 Miscellaneous Information 1 ea NOTE XX ; Start 12/27/16 at 16:30 Glucose (Glutose) 15 gm Q15M PRN PO DECREASED GLUCOSE; Start 12/27/16 at 16:30 Glucose (Glutose) 22.5 gm Q15M PRN PO DECREASED GLUCOSE; Start 12/27/16 at 16: 30 Dextrose (D50w Syringe) 25 ml Q15M PRN IV DECREASED GLUCOSE; Start 12/27/16 at 16:30 Dextrose (D50w Syringe) 50 ml Q15M PRN IV DECREASED GLUCOSE; Start 12/27/16 at 16:30 Glucagon (Glucagen) 1 mg Q15M PRN IM DECREASED GLUCOSE; Start 12/27/16 at 16:30 Glucose 15 gm 15 gm Q15M PRN BUCCAL DECREASED GLUCOSE; Start 12/27/16 at 16:30 Midazolam HCl (Versed) 50 ml @ 1 mls/hr TITRATE IV Last administered on 05:11; Admin Dose 5 MLS/HR; Start 12/27/16 at 19:30 GAL LIZARRAGA MD Dec 28, 2016 14:24
--- NOTE | 2016-12-28 14:58 | CONS ---
Date/Time of Note Date/Time of Note DATE: 12/28/16 TIME: 14:54 Consult Date/Type/Reason Admit Date/Time Dec 27, 2016 at 10:02 Initial Consult Date Type of Consultation: Pulm/CC [facility] Objective Vital Signs Date Time Temp Pulse Resp B/P Pulse Ox O2 Delivery O2 Flow Rate FiO2 12/28/16 12:00 84 12/28/16 08:00 40 12/28/16 06:45 20 135/43 100 12/28/16 06:00 Mechanical Ventilator 12/28/16 04:00 99.7 12/27/16 09:45 2.0 Intake and Output 12/27/16 12/27/16 12/28/16 15:00 23:00 07:00 Intake Total 1795.15 ml 1165.85 ml 1056.9 ml Output Total 1015 ml 290 ml 225 ml Balance 780.15 ml 875.85 ml 831.9 ml Exam NECK: Supple. No JVD or lymphadenopathy, ET tube in place CARDIAC: S1, S2, no added sounds or murmurs. CHEST: Clear ABDOMEN: Soft, nontender. No guarding or rebound. EXTREMITIES: No cyanosis, clubbing, or edema. Results/Medications Result Diagram: 12/28/16 0806 12/28/16 0447 Results 24 hrs Laboratory Tests Test 12/27/16 16:00 12/27/16 17:52 12/27/16 18:10 12/27/16 21:07 Blood Gas Specimen Source Blood arterial Arterial Blood Date Drawn 12/27/2016 4:15:07 PM Arterial Blood pH (Temp corrected) 7.503 H Arterial Blood pCO2 (Temp correct) 18.1 L Arterial Blood pO2 (Temp corrected) 237.2 H Arterial Blood HCO3 13.9 L Arterial Blood Base Excess -7.2 L Arterial Blood Oxygen Saturation 98.8 Mike Test ACCEPTAB Arterial Blood Gas Puncture Site Right Radial Arterial Blood Carboxyhemoglobin 0.3 Arterial Blood Methemoglobin 0.4 Blood Gas A-a O2 Differential 98.9 H Oxyhemoglobin Percent 98.1 Total Hemoglobin 11.0 L Blood Gas Temperature 37.0 Blood Gas Respiration Rate 20.0 Blood Gas Actual Respiration Rate 22 Blood Gas Modality VENT - AC FiO2 50.0 Blood Gas Tidal Volume 550.0 Blood Gas Low PEEP Setting 5.0 Blood Gas Notified Whom DT Blood Gas Notified Time 12/27/2016 4:26:34 PM Bedside Glucose 181 222 H Hemoglobin 9.8 L Hematocrit 28.1 L Lactic Acid Level 9.2 *H Troponin I 0.020 Test 12/27/16 23:59 12/28/16 01:12 12/28/16 04:47 12/28/16 04:53 Hemoglobin 8.9 L Hematocrit 24.4 L Troponin I 0.063 Bedside Glucose 211 183 Sodium Level 127 L Potassium Level 5.1 Chloride Level 96 L Carbon Dioxide Level 22 Anion Gap 14 # Blood Urea Nitrogen 37 #H Creatinine 1.01 H Glucose Level 152 Calcium Level 7.0 L Magnesium Level 1.2 L Iron Level 149 Total Iron Binding Capacity 249 Percent Iron Saturation 60 H Ferritin 107.0 Ammonia 15 Thyroid Stimulating Hormone (TSH) 1.390 Test 12/28/16 08:06 12/28/16 08:26 12/28/16 10:41 12/28/16 11:49 White Blood Count 16.2 #H Red Blood Count 2.51 L Hemoglobin 8.0 L Hematocrit 22.2 L Mean Corpuscular Volume 88.4 Mean Corpuscular Hemoglobin 31.9 Mean Corpuscular Hemoglobin Concent 36.0 Red Cell Distribution Width 15.6 H Platelet Count 88 #L Mean Platelet Volume 10.6 H Neutrophils % 79.0 H Band Neutrophils % 5.0 Lymphocytes % 11.0 L Monocytes % 5.0 Eosinophils % Basophils % Nucleated Red Blood Cells % 1.0 H Neutrophils # 12.8 H Lymphocytes # 1.8 Monocytes # 0.8 Eosinophils # Basophils # Nucleated Red Blood Cells # Differential Comment MANUAL DIFF Bedside Glucose 181 210 Lactic Acid Level 5.0 *H Medications Current Medications Pantoprazole/ Sodium Chloride (Protonix Iv/NS) 100 ml @ 10 mls/hr Q10H IV Last administered on 12/28/16t 05:57; Admin Dose 10 MLS/HR; Start 12/27/16 at 12: 00 Ondansetron HCl (Zofran Inj) 4 mg Q6H PRN IV NAUSEA AND/OR VOMITING; Start at 12:00 Acetaminophen (Tylenol Tab) 650 mg Q6H PRN PO PAIN LEVEL 1-3 OR FEVER; Start at 12:00 Acetaminophen (Tylenol Supp) 650 mg Q4H PRN [place] PAIN LEVEL 1-3 OR FEVER; Start 12/27/16 at 12:00 Acetaminophen/ Hydrocodone Bitart ([place] (5/325)) 1 tab Q6H PRN PO PAIN LEVEL 4 -6; Start 12/27/16 at 12:00 Morphine Sulfate (morphine) 1 mg Q4H PRN IV PAIN LEVEL 7-10; Start 12/27/16 at 12:00 Docusate Sodium (Colace) 100 mg Q12H PRN PO CONSTIPATION; Start 12/27/16 at 12: 00 Bisacodyl 10 mg 10 mg DAILY PRN CO CONSTIPATION; Start 12/27/16 at 12:00 Octreotide Acetate 1 mg/ Sodium Chloride 100 ml @ 5 mls/hr Q20H IV Last administered on 12/28/16 08:33; Admin Dose 5 MLS/HR; Start 12/27/16 at 12:30 Sodium Bicarbonate 100 meq/Dextrose/ Sodium Chloride 1,100 ml @ 100 mls/hr Q11H IV Last administered on 12/28/16 04:43; Admin Dose 100 MLS/HR; Start 12/27 at 15:30 Piperacillin Sod/ Tazobactam Sod (Zosyn 2.25gm/ 50ml (Pmx)) 50 ml @ 200 mls/hr Q6 IVPB Last administered on 12/28/16 12:02; Admin Dose 200 MLS/HR; Start 12/27 at 16:00 Insulin Aspart (Novolog Insulin Pen) NOVOLOG *MILD* ALGORI... Q4 SC Last administered on 12/28/16 12:03; Admin Dose 2 UNIT; Start 12/27/16 at 17:00 Digoxin 250 mcg 250 mcg DAILY@13 IV Last administered on 12/28/16 12:02; Admin Dose 250 MCG; Start 12/27/16 at 16:00 Vancomycin HCl/ Sodium Chloride (Vancocin/NS) 150 ml @ 75 mls/hr Q24H IVPB ; Start 12/28/16 at 17:00 Miscellaneous Information 1 ea NOTE XX ; Start 12/27/16 at 16:30 Glucose (Glutose) 15 gm Q15M PRN PO DECREASED GLUCOSE; Start 12/27/16 at 16:30 Glucose (Glutose) 22.5 gm Q15M PRN PO DECREASED GLUCOSE; Start 12/27/16 at 16: 30 Dextrose (D50w Syringe) 25 ml Q15M PRN IV DECREASED GLUCOSE; Start 12/27/16 at 16:30 Dextrose (D50w Syringe) 50 ml Q15M PRN IV DECREASED GLUCOSE; Start 12/27/16 at 16:30 Glucagon (Glucagen) 1 mg Q15M PRN IM DECREASED GLUCOSE; Start 12/27/16 at 16:30 Glucose 15 gm 15 gm Q15M PRN BUCCAL DECREASED GLUCOSE; Start 12/27/16 at 16:30 Midazolam HCl (Versed) 50 ml @ 1 mls/hr TITRATE IV Last administered on t 05:11; Admin Dose 5 MLS/HR; Start 12/27/16 at 19:30 Assessment/Plan Additional Assessment/Plan IMPRESSION: 1. Acute gastrointestinal bleed--due esophageal variceal hemorrhages 2. 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 Respiratory Failure 4. Azotemia 5. Cirrhosis PLAN: 1. Continue mechanical ventilation. 2. D/C versed 3. Sedation with fentanyl +/- propofol 4. Lactulose CO 5. Follow H/H 6. De-escalate abx 35 min cc time RUPA SCOTT MD Dec 28, 2016 14:58
[2016-12-28] MEDS: LACTULOSE ENEMA 1,000 ML BTL PR SCH ×3 (15:00→23:44)
[2016-12-28] MEDS ORDERED: FENTAnyl (DRIP) 1000 mcg/100mL 100 ML IV SCH (15:00)
[2016-12-28] MEDS: PROPOFOL 100 ML IV SCH (15:20)
--- NOTE | 2016-12-28 16:22 | RADRPT ---
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 Physician: PACO JEAN Quality: Technically Difficult Study Procedures: Transthoracic echocardiogram with complete 2D, M-Mode, and Doppler examination. Indications: Atrial Fibrillation. 2D/M Mode Doppler Measurement Value Normal Ranges Measurement Value Normal Ranges AoR Diam MM 2.7 cm AV Peak Minh 1.3 m/sec LVIDd 2D 3.5 3.5 - 5.6 cm AV Peak PG 7.0 mmHg LVIDs 2D 2.0 2.1 - 4.1 cm LVOT Peak Minh 1.0 m/sec LVPWd 2D 1.0 0.6 - 1.1 cm LVOT Peak PG 4.1 mmHg IVSd 2D 1.0 0.6 - 1.1 cm MV E Peak Minh 0.5 m/sec EDV 2D 52.3 cm3 MV A Peak Minh 0.5 m/sec ESV 2D 7.6 cm3 MV E/A 1.1 LA Dimen 2D 3.2 2.3 - 4.0 cm MV Decel Time 219 msec MV Decel [place] 2 MV E/A 1.1 TR Peak Minh 2.9 m/sec TR Peak PG 33.9 mmHg PV Peak Minh 1.4 m/sec PV Peak PG 7.0 mmHg RVSP 36.9 mmHg Findings Left Ventricle: Normal left ventricular systolic function. Normal left ventricular cavity size. Normal left ventricular wall thickness. Ejection fraction is visually estimated at 6570 %. Tissue Doppler/Mitral Doppler indices are indeterminate in this study due to the presence of arrhythmia. Right Ventricle: Normal right ventricular size. Normal right ventricular systolic function. Left Atrium: The left atrium is normal in size. Right Atrium: The right atrium is normal in size. Atrial Septum: Normal atrial septum. Mitral Valve: Mild mitral annular calcification. Trace mitral regurgitation. Aortic Valve: Normal appearance of the aortic valve. Trileaflet aortic valve. Tricuspid Valve: Normal appearance of the tricuspid valve. Estimated peak PA systolic pressure 34 mmHg. There is mild to moderate tricuspid regurgitation. Pulmonic Valve: Normal pulmonic valve appearance. There is trace to mild pulmonic regurgitation. Pericardium: Normal pericardium with no significant pericardial effusion. Right pleural effusion seen. Aorta: Normal aortic root. IVC: Inferior vena cava without respiratory collapse, however, patient on ventilator. Pulmonary Artery: Normal pulmonary artery size. Conclusions 1.The left ventricle is normal in size and systolic function. 2.Estimated left ventricular ejection fraction of 65-60%. Electronically Signed By: Paco Jean 28-Dec-2016 16:21:52 -0700 Patient Name: MIKE CHEN Study Date: 28-Dec-2016 [id number]
[2016-12-28] MEDS ORDERED: AMIODARONE 900 MG in DEXTROSE 5% 482 ML IV SCH (17:00)
[2016-12-28] MEDS ORDERED: VANCOMYCIN 750 MG in SOD CHLORIDE 0.9% 150 ML IVPB SCH (17:00)
--- NOTE | 2016-12-28 17:21 | CONS ---
Date/Time of Note Date/Time of Note DATE: 12/28/16 TIME: 17:18 Assessment/Plan Assessment/Plan Chief Complaint/Hosp Course Assessment: Paroxysmal atrial fibrillation with rapid ventricular response - reverted to sinus rhythm on amiodarone drip Acute gastrointestinal bleeding with hematemesis - status post EGD with band ligation of esophageal varices 12/27/2016 Esophageal varices Liver cirrhosis Diabetes mellitus Intubated for airway protection - on mechanical ventilation Recommendations: -echocardiogram showed LVEF 65-70% -continue amiodarone drip -decrease digoxin to 0.125mg IV daily (back to outpatient dose) -holding aspirin due to bleeding -follow up gastroenterology recommendations Problems: Consultation Date/Type/Reason Admit Date/Time Dec 27, 2016 at 10:02 Initial Consult Date Type of Consultation: Cardiology 24 HR Interval Summary Free Text/Dictation Status post EGD yesterday with band ligation of esophageal varices. Reverted to sinus rhythm on amiodarone drip. Detailed Summary Additional Comments Unable to obtain review of systems, patient is intubated. Exam/Review of Systems Vital Signs Vitals Vital Signs Date Time Temp Pulse Resp B/P Pulse Ox O2 Delivery O2 Flow Rate FiO2 12/28/16 13:07 84 20 100 35 12/28/16 06:45 135/43 12/28/16 06:00 Mechanical Ventilator 12/28/16 04:00 99.7 12/27/16 09:45 2.0 Intake and Output 12/27/16 12/27/16 12/28/16 15:00 23:00 07:00 Intake Total 1795.15 ml 1165.85 ml 1056.9 ml Output Total 1015 ml 290 ml 225 ml Balance 780.15 ml 875.85 ml 831.9 ml Exam Constitutional: other (intubated), No alert Head: atraumatic, normocephalic ENMT: intubated Neck: supple Respiratory: clear to auscultation, normal air movement Cardiovascular: irregular rhythm Gastrointestinal: distended, soft Musculoskeletal: nl extremities to inspection Extremities: No clubbing, No edema Neurological: No nl mental status, No nl speech Results Result Diagram: 12/28/16 0806 12/28/16 0447 Results 24 hrs Laboratory Tests Test 12/27/16 17:52 12/27/16 18:10 12/27/16 21:07 12/27/16 23:59 Bedside Glucose 181 222 H Hemoglobin 9.8 L 8.9 L Hematocrit 28.1 L 24.4 L Lactic Acid Level 9.2 *H Troponin I 0.020 0.063 Test 12/28/16 01:12 12/28/16 04:47 12/28/16 04:53 12/28/16 08:06 Bedside Glucose 211 183 Sodium Level 127 L Potassium Level 5.1 Chloride Level 96 L Carbon Dioxide Level 22 Anion Gap 14 # Blood Urea Nitrogen 37 #H Creatinine 1.01 H Glucose Level 152 Calcium Level 7.0 L Magnesium Level 1.2 L Iron Level 149 Total Iron Binding Capacity 249 Percent Iron Saturation 60 H Ferritin 107.0 Ammonia 15 Thyroid Stimulating Hormone (TSH) 1.390 White Blood Count 16.2 #H Red Blood Count 2.51 L Hemoglobin 8.0 L Hematocrit 22.2 L Mean Corpuscular Volume 88.4 Mean Corpuscular Hemoglobin 31.9 Mean Corpuscular Hemoglobin Concent 36.0 Red Cell Distribution Width 15.6 H Platelet Count 88 #L Mean Platelet Volume 10.6 H Neutrophils % 79.0 H Band Neutrophils % 5.0 Lymphocytes % 11.0 L Monocytes % 5.0 Eosinophils % Basophils % Nucleated Red Blood Cells % 1.0 H Neutrophils # 12.8 H Lymphocytes # 1.8 Monocytes # 0.8 Eosinophils # Basophils # Nucleated Red Blood Cells # Differential Comment MANUAL DIFF Test 12/28/16 08:26 12/28/16 10:41 12/28/16 11:49 12/28/16 16:28 Bedside Glucose 181 210 179 Lactic Acid Level 5.0 *H Medications Medications Current Medications Pantoprazole/ Sodium Chloride (Protonix Iv/NS) 100 ml @ 10 mls/hr Q10H IV Last administered on 12/28/16t 16:40; Admin Dose 10 MLS/HR; Start 12/27/16 at 12: 00 Ondansetron HCl (Zofran Inj) 4 mg Q6H PRN IV NAUSEA AND/OR VOMITING; Start at 12:00 Acetaminophen (Tylenol Tab) 650 mg Q6H PRN PO PAIN LEVEL 1-3 OR FEVER; Start at 12:00 Acetaminophen (Tylenol Supp) 650 mg Q4H PRN [place] PAIN LEVEL 1-3 OR FEVER; Start 12/27/16 at 12:00 Acetaminophen/ Hydrocodone Bitart ([place] (5/325)) 1 tab Q6H PRN PO PAIN LEVEL 4 -6; Start 12/27/16 at 12:00 Morphine Sulfate (morphine) 1 mg Q4H PRN IV PAIN LEVEL 7-10; Start 12/27/16 at 12:00 Docusate Sodium (Colace) 100 mg Q12H PRN PO CONSTIPATION; Start 12/27/16 at 12: 00 Bisacodyl 10 mg 10 mg DAILY PRN MS CONSTIPATION; Start 12/27/16 at 12:00 Octreotide Acetate 1 mg/ Sodium Chloride 100 ml @ 5 mls/hr Q20H IV Last administered on 12/28/16 08:33; Admin Dose 5 MLS/HR; Start 12/27/16 at 12:30 Sodium Bicarbonate 100 meq/Dextrose/ Sodium Chloride 1,100 ml @ 100 mls/hr Q11H IV Last administered on 12/28/16 16:25; Admin Dose 100 MLS/HR; Start 12/27 at 15:30 Piperacillin Sod/ Tazobactam Sod (Zosyn 2.25gm/ 50ml (Pmx)) 50 ml @ 200 mls/hr Q6 IVPB Last administered on 12/28/16 17:17; Admin Dose 200 MLS/HR; Start 12/27 at 16:00 Insulin Aspart (Novolog Insulin Pen) NOVOLOG *MILD* ALGORI... Q4 SC Last administered on 12/28/16 16:41; Admin Dose 1 UNIT; Start 12/27/16 at 17:00 Digoxin (Digoxin) 250 mcg DAILY@13 IV Last administered on 12/28/16 12:02; Admin Dose 250 MCG; Start 12/27/16 at 16:00 Miscellaneous Information 1 ea NOTE XX ; Start 12/27/16 at 16:30 Glucose (Glutose) 15 gm Q15M PRN PO DECREASED GLUCOSE; Start 12/27/16 at 16:30 Glucose (Glutose) 22.5 gm Q15M PRN PO DECREASED GLUCOSE; Start 12/27/16 at 16: 30 Dextrose (D50w Syringe) 25 ml Q15M PRN IV DECREASED GLUCOSE; Start 12/27/16 at 16:30 Dextrose (D50w Syringe) 50 ml Q15M PRN IV DECREASED GLUCOSE; Start 12/27/16 at 16:30 Glucagon (Glucagen) 1 mg Q15M PRN IM DECREASED GLUCOSE; Start 12/27/16 at 16:30 Glucose (Glutose) 15 gm Q15M PRN BUCCAL DECREASED GLUCOSE; Start 12/27/16 at 16 :30 Lactulose 100 ml 100 ml Q6 MS Last administered on 12/28/16 17:17; Admin Dose 100 ML; Start 12/28/16 at 15:00 Fentanyl 100 ml @ 5 mls/hr TITRATE IV ; Start 12/28/16 at 15:00 Propofol 100 ml @ 1.551 mls/ hr Q12H IV Last administered on 12/28/16 15:20; Admin Dose 1.551 MLS/HR; Start 12/28/16 at 15:00 Amiodarone HCl/ Dextrose (Cordarone Iv/ D5W) 500 ml @ 0 mls/hr Q0M IV ; Start at 17:00 PACO JEAN MD Dec 28, 2016 17:21
[2016-12-29] VITALS (68 sets, daily range): BP systolic 117–148; BP diastolic 31–61; PULSE 54–71; RESP 14–26
[2016-12-29] MEDS: PIPER-TAZO 2.25 GM (PMX) 50 ML IVPB SCH ×4 (00:44→17:16)
[2016-12-29] MEDS: INSULIN ASPART [NOVOLOG] 3 ML PEN SC SCH ×6 (00:51→20:28)
[2016-12-29] MEDS: OCTREOTIDE 1 MG in SOD CHLORIDE 0.9% 95 ML IV SCH ×2 (03:35→23:14)
[2016-12-29] MEDS: SODIUM BICARBONATE (IV ADD) 100 MEQ in DEXTROSE 5%-0.45% NACL 1,000 ML IV SCH ×2 (04:04→17:29)
[2016-12-29] MEDS: PANTOPRAZOLE IV 80 MG in SOD CHLORIDE 0.9% 100 ML IV SCH ×3 (04:04→23:13)
[2016-12-29 04:38] LABS: AADO2 Arterial 61.2 mmHg (7.0-24.0); Allen Test ACCEPTAB; Arterial Base Excess 3.3 mmol/L (-3.0-3); Arterial COHb 0.3 % (0.0-3.0); Arterial Fraction of Oxyhgb 97.5 % (93.0-99.0); Arterial HCO3 23.3 mmol/L (22.0-26.0); Arterial MetHb 0.7 % (0.0-1.5); Arterial Total Hemglobin 7.6 g/dl (12.0-18.0); MODE VENT - AC
[2016-12-29 05:31] LABS: ADD SCAN DIFF NO
[2016-12-29 05:39] LABS: ABNORMAL IP MESSAGE 1; BASOPHILS % 0.3 % (0.0-2.0); EOSINOPHILS % 0.6 % (0.0-7.0); HEMATOCRIT 19.6 % (37.0-47.0); LYMPHOCYTES # 0.8 10^3/ul (0.8-2.9); MEAN CORPUSCULAR HEMOGLOBIN 31.8 pg (29.0-33.0); MEAN CORPUSCULAR HGB CONC 34.7 g/dl (32.0-37.0); MEAN CORPUSCULAR VOLUME 91.6 fl (82.0-101.0); MEAN PLATELET VOLUME 11.2 fl (7.4-10.4); MONOCYTE # 0.6 10^3/ul (0.3-0.9); MONOCYTES % 8.8 % (0.0-11.0); NEUTROPHIL # 5.3 10^3/ul (1.6-7.5); NEUTROPHILS % 77.4 % (39.0-77.0); PLATELET COUNT 58 10^3/UL (140-415); RED BLOOD COUNT 2.14 10^6/ul (4.20-5.40); WHITE BLOOD COUNT 6.8 10^3/ul (4.8-10.8)
[2016-12-29 05:54] LABS: HEMOGLOBIN 6.8 g/dl (12.0-16.0)
[2016-12-29] MEDS ORDERED: SOD CHLORIDE 0.9% 250 ML IV* ONE (05:55)
[2016-12-29 05:56] LABS: ALBUMIN 1.9 g/dl (3.3-4.9)
[2016-12-29 05:57] LABS: POTASSIUM 3.1 mmol/L (3.5-5.1)
[2016-12-29 05:59] LABS: ALBUMIN/GLOBULIN RATIO 0.82; BILIRUBIN,INDIRECT 0.7 mg/dl (0-1.1); BILIRUBIN,TOTAL 0.7 mg/dl (0.2-1.3); CREATININE 1.15 mg/dl (0.44-1.00); TOTAL PROTEIN 4.2 g/dl (6.1-8.1)
[2016-12-29] MEDS: LACTULOSE ENEMA 1,000 ML BTL PR SCH ×3 (06:07→17:16)
--- NOTE | 2016-12-29 08:27 | PN ---
Date/Time of Note Date/Time of Note DATE: 12/29/16 TIME: 08:24 Assessment/Plan VTE Prophylaxis VTE Prophylaxis Intervention: contraindicated (GI bleed) Lines/Catheters IV [facility] Central Line Central line still needed: Yes (Critically ill) Urinary Cath still in place: No Assessment/Plan Problems: (1) Hypokalemia Status: Acute Comment: Patient's potassium is 3.1 this morning will replete this IV. There is no we have little bit of room to work but she is also getting blood products due to severe anemia (2) Systemic inflammatory response syndrome (SIRS) associated with organ dysfunction Status: Acute Comment: Her lactic acid levels been steadily but slowly decreasing. Part of this is hypoperfusion due to the GI bleed and shock part of this is undoubtedly due to systemic inflammatory response syndrome/sepsis (3) Diabetic peripheral neuropathy associated with type 2 diabetes mellitus Status: Chronic Comment: Peripheral neuropathy is noted and is evident on physical exam. Patient sugars are under adequate control on current medication regimen (4) Esophageal varices in cirrhosis Status: Chronic Comment: Patient underwent banding on the . Her hemoglobin and hematocrit continued to drop and she will be transfused to bring this back up. Gastroenterology is consulting and assisting (5) Upper GI hemorrhage Status: Acute Comment: As above. At this moment does not appear to be actively bleeding but I am very concerned given the drop in H and H (6) GI bleed Status: Acute Comment: As above Qualifiers: GI bleed type/associated pathology: unspecified gastrointestinal hemorrhage type Qualified Code: K92.2 - Gastrointestinal hemorrhage, unspecified gastrointestinal hemorrhage type (7) Anemia Status: Acute Comment: She will be transfused at this time 2 units Qualifiers: Anemia type: other cause Other causes of anemia: acute posthemorrhagic Qualified Code: D62 - Acute posthemorrhagic anemia (8) Respiratory failure Status: Acute Comment: She is intubated on the ventilator with sedation to protect her airway pulmonology is following Qualifiers: Chronicity: acute Respiratory failure complication: unspecified whether with hypoxia or hypercapnia Qualified Code: J96.00 - Acute respiratory failure , unspecified whether with hypoxia or hypercapnia Subjective 24 Hr Interval Summary Free Text/Dictation Critically ill female on a ventilator with a propofol drip nonresponsive but does move her head around Subjective hx not possible: pt non-verbal, pt critical status Exam/Review of Systems Vital Signs Vitals Vital Signs Date Time Temp Pulse Resp B/P Pulse Ox O2 Delivery O2 Flow Rate FiO2 12/29/16 06:00 67 14 133/40 100 Mechanical Ventilator 12/29/16 05:06 30 12/29/16 04:00 98.3 12/27/16 09:45 2.0 Intake and Output 12/28/16 12/28/16 12/29/16 15:00 23:00 07:00 Intake Total 3.75 ml 688.06 ml 1076.74 ml Output Total 175 ml 350 ml Balance 3.75 ml 513.06 ml 726.74 ml Exam Constitutional: non-verbal Eyes: other (Appears to have conjunctivitis) Neck: non-tender, other (Intubated and an NG tube), supple Respiratory: clear to auscultation, normal air movement Cardiovascular: nl pulses, regular rate and rhythm Gastrointestinal: nl liver, spleen, non-tender, soft Genitourinary - Female: other (Obrien catheter draining yellow urine) Results Result Diagram: 12/29/16 0441 12/29/16 0441 Results 24 hrs Laboratory Tests Test 12/28/16 08:26 12/28/16 10:41 12/28/16 11:49 12/28/16 16:28 Bedside Glucose 181 210 179 Lactic Acid Level 5.0 *H Test 12/28/16 20:00 12/29/16 00:48 12/29/16 04:41 12/29/16 04:46 Bedside Glucose 172 193 179 White Blood Count 6.8 # Red Blood Count 2.14 L Hemoglobin 6.8 *L Hematocrit 19.6 L Mean Corpuscular Volume 91.6 Mean Corpuscular Hemoglobin 31.8 Mean Corpuscular Hemoglobin Concent 34.7 Red Cell Distribution Width 16.0 H Platelet Count 58 #L Mean Platelet Volume 11.2 H Neutrophils % 77.4 H Lymphocytes % 12.0 L Monocytes % 8.8 Eosinophils % 0.6 Basophils % 0.3 Nucleated Red Blood Cells % 0.0 Neutrophils # 5.3 Lymphocytes # 0.8 Monocytes # 0.6 Eosinophils # 0.0 Basophils # 0.0 Nucleated Red Blood Cells # 0.0 Sodium Level 134 L Potassium Level 3.1 #L Chloride Level 98 Carbon Dioxide Level 24 Anion Gap 15 Blood Urea Nitrogen 38 H Creatinine 1.15 H Glucose Level 164 Lactic Acid Level 4.4 *H Calcium Level 7.0 L Total Bilirubin 0.7 Direct Bilirubin 0.00 Indirect Bilirubin 0.7 Aspartate Amino Transf (AST/SGOT) 85 H Alanine Aminotransferase (ALT/SGPT) 57 Alkaline Phosphatase 31 #L Ammonia < 9 L Total Protein 4.2 #L Albumin 1.9 #L Globulin 2.30 Albumin/Globulin Ratio 0.82 Test 12/29/16 05:00 12/29/16 08:14 Blood Gas Specimen Source Blood arterial Arterial Blood Date Drawn 12/29/2016 4:26:48 AM Arterial Blood pH (Temp corrected) 7.682 *H Arterial Blood pCO2 (Temp correct) 20.1 L Arterial Blood pO2 (Temp corrected) 165.0 H Arterial Blood HCO3 23.3 Arterial Blood Base Excess 3.3 H Arterial Blood Oxygen Saturation 98.5 Mike Test ACCEPTAB Arterial Blood Gas Puncture Site Right Radial Arterial Blood Carboxyhemoglobin 0.3 Arterial Blood Methemoglobin 0.7 Blood Gas A-a O2 Differential 61.2 H Oxyhemoglobin Percent 97.5 Total Hemoglobin 7.6 L Blood Gas Temperature 37.0 Blood Gas Respiration Rate 20.0 Blood Gas Actual Respiration Rate 20 Blood Gas Modality VENT - AC FiO2 35.0 Blood Gas Tidal Volume 550.0 Blood Gas Low PEEP Setting 5.0 Blood Gas Critical Value Read Back Lana ASHBY Blood Gas Notified Whom LW Blood Gas Notified Time 12/29/2016 4:38:38 AM Bedside Glucose 172 Medications Medications Current Medications Pantoprazole/ Sodium Chloride (Protonix Iv/NS) 100 ml @ 10 mls/hr Q10H IV Last administered on 12/29/16t 04:04; Admin Dose 10 MLS/HR; Start 12/27/16 at 12: 00 Ondansetron HCl (Zofran Inj) 4 mg Q6H PRN IV NAUSEA AND/OR VOMITING; Start at 12:00 Acetaminophen (Tylenol Tab) 650 mg Q6H PRN PO PAIN LEVEL 1-3 OR FEVER; Start at 12:00 Acetaminophen (Tylenol Supp) 650 mg Q4H PRN [place] PAIN LEVEL 1-3 OR FEVER; Start 12/27/16 at 12:00 Acetaminophen/ Hydrocodone Bitart ([place] (5/325)) 1 tab Q6H PRN PO PAIN LEVEL 4 -6; Start 12/27/16 at 12:00 Morphine Sulfate (morphine) 1 mg Q4H PRN IV PAIN LEVEL 7-10; Start 12/27/16 at 12:00 Docusate Sodium (Colace) 100 mg Q12H PRN PO CONSTIPATION; Start 12/27/16 at 12: 00 Bisacodyl 10 mg 10 mg DAILY PRN [place] CONSTIPATION; Start 12/27/16 at 12:00 Octreotide Acetate 1 mg/ Sodium Chloride 100 ml @ 5 mls/hr Q20H IV Last administered on 12/29/16 03:35; Admin Dose 5 MLS/HR; Start 12/27/16 at 12:30 Sodium Bicarbonate 100 meq/Dextrose/ Sodium Chloride 1,100 ml @ 100 mls/hr Q11H IV Last administered on 12/29/16 04:04; Admin Dose 100 MLS/HR; Start 12/27 at 15:30 Piperacillin Sod/ Tazobactam Sod (Zosyn 2.25gm/ 50ml (Pmx)) 50 ml @ 200 mls/hr Q6 IVPB Last administered on 12/29/16 06:07; Admin Dose 200 MLS/HR; Start 12/27 at 16:00 Insulin Aspart (Novolog Insulin Pen) NOVOLOG *MILD* ALGORI... Q4 SC Last administered on 12/29/16 04:59; Admin Dose 1 UNIT; Start 12/27/16 at 17:00 Miscellaneous Information 1 ea NOTE XX ; Start 12/27/16 at 16:30 Glucose (Glutose) 15 gm Q15M PRN PO DECREASED GLUCOSE; Start 12/27/16 at 16:30 Glucose (Glutose) 22.5 gm Q15M PRN PO DECREASED GLUCOSE; Start 12/27/16 at 16: 30 Dextrose (D50w Syringe) 25 ml Q15M PRN IV DECREASED GLUCOSE; Start 12/27/16 at 16:30 Dextrose (D50w Syringe) 50 ml Q15M PRN IV DECREASED GLUCOSE; Start 12/27/16 at 16:30 Glucagon (Glucagen) 1 mg Q15M PRN IM DECREASED GLUCOSE; Start 12/27/16 at 16:30 Glucose (Glutose) 15 gm Q15M PRN BUCCAL DECREASED GLUCOSE; Start 12/27/16 at 16 :30 Lactulose 100 ml 100 ml Q6 [place] Last administered on 12/29/16 06:07; Admin Dose 100 ML; Start 12/28/16 at 15:00 Fentanyl 100 ml @ 5 mls/hr TITRATE IV ; Start 12/28/16 at 15:00 Propofol 100 ml @ 1.551 mls/ hr Q12H IV Last administered on 12/28/16 15:20; Admin Dose 1.551 MLS/HR; Start 12/28/16 at 15:00 Amiodarone HCl/ Dextrose (Cordarone Iv/ D5W) 500 ml @ 0 mls/hr Q0M IV ; Start at 17:00 Digoxin (Digoxin) 125 mcg DAILY@13 IV ; Start 12/29/16 at 13:00 ABDULKADIR TAYLOR MD Dec 29, 2016 08:27
[2016-12-29] MEDS: PROPOFOL 100 ML IV SCH ×2 (09:06→14:21)
[2016-12-29] MEDS: POTASSIUM CHLORIDE 250 ML IVPB SCH ×2 (09:13→12:17)
[2016-12-29] MEDS: TOBRAMYCIN 0.3% 5 ML OPH BOTH EYES SCH ×3 (12:16→20:27)
[2016-12-29] MEDS: DIGOXIN 500 MCG INJ IV SCH (12:16)
--- NOTE | 2016-12-29 12:56 | CONS ---
Date/Time of Note Date/Time of Note DATE: 12/29/16 TIME: 12:54 Assessment/Plan Assessment/Plan Chief Complaint/Hosp Course ASSESSMENT 1. Upper gastrointestinal bleed. s/p EGD with band ligation x 4 on 12-27-16 of bleeding esophageal varices. She is also bleeding from portal hypertensive gastropathy but no hemostasis is done as the bleeding from this is diffuse and involves the whole stomach. 2. Severe metabolic acidosis. 3. History of atrial fibrillation. Cardiology has been consulted. At this time, we will hold blood pressure since the hypotension. 4. Sepsis with lactic acid of 6. 5. Anemia, secondary to gastrointestinal bleed. 6. Dyslipidemia. Restart statin when patient is able to tolerate p.o. intake. 7. Diabetes mellitus. Place the patient on insulin sliding scale. Hold metformin at this time secondary to lactic acidosis. 8. Questionable congestive heart failure. GI Recommendations: 1. Continue IV octreotide and IV Protonix gtt. 2. Transfuse PRN hgb less than 8. 3. No NG tube as I placed bands and insertion of NG tube may displace the bands on the varices and lead to massive variceal bleeding. 4. Continue other supportive measures per primary and other consultants 5. consider repeat EGD tomorrow if h/h continues to drop. However, this soon after EGD with banding poses possibility of dislodging the bands that were placed previously. 6. extremely poor prognosis Problems: Consultation Date/Type/Reason Admit Date/Time Dec 27, 2016 at 10:02 Type of Consultation: GI 24 HR Interval Summary Free Text/Dictation discussed with nurse that there is no hematemesis, melena or brbpr Subjective hx not possible: pt non-verbal, pt critical Exam/Review of Systems Vital Signs Vitals Vital Signs Date Time Temp Pulse Resp B/P Pulse Ox O2 Delivery O2 Flow Rate FiO2 12/29/16 08:00 30 12/29/16 08:00 66 12/29/16 06:00 14 133/40 100 Mechanical Ventilator 12/29/16 04:00 98.3 12/27/16 09:45 2.0 Intake and Output 12/28/16 12/28/16 12/29/16 15:00 23:00 07:00 Intake Total 3.75 ml 688.06 ml 1076.74 ml Output Total 175 ml 350 ml Balance 3.75 ml 513.06 ml 726.74 ml Exam Constitutional: frail, non-verbal Psych: confusion Head: atraumatic, normocephalic ENMT: intubated, mucosa pink and moist, nl external ears & nose, nl lips & teeth, nl nasal mucosa & septum Neck: non-tender, supple Respiratory: clear to auscultation, normal air movement Cardiovascular: nl pulses, regular rate and rhythm Gastrointestinal: bowel sounds (reduced), non-tender, soft Results Result Diagram: 12/29/161 12/29/16 0441 Results 24 hrs Laboratory Tests Test 12/28/16 16:28 12/28/16 20:00 12/29/16 00:48 12/29/16 04:41 Bedside Glucose 179 172 193 White Blood Count 6.8 # Red Blood Count 2.14 L Hemoglobin 6.8 *L Hematocrit 19.6 L Mean Corpuscular Volume 91.6 Mean Corpuscular Hemoglobin 31.8 Mean Corpuscular Hemoglobin Concent 34.7 Red Cell Distribution Width 16.0 H Platelet Count 58 #L Mean Platelet Volume 11.2 H Neutrophils % 77.4 H Lymphocytes % 12.0 L Monocytes % 8.8 Eosinophils % 0.6 Basophils % 0.3 Nucleated Red Blood Cells % 0.0 Neutrophils # 5.3 Lymphocytes # 0.8 Monocytes # 0.6 Eosinophils # 0.0 Basophils # 0.0 Nucleated Red Blood Cells # 0.0 Sodium Level 134 L Potassium Level 3.1 #L Chloride Level 98 Carbon Dioxide Level 24 Anion Gap 15 Blood Urea Nitrogen 38 H Creatinine 1.15 H Glucose Level 164 Lactic Acid Level 4.4 *H Calcium Level 7.0 L Total Bilirubin 0.7 Direct Bilirubin 0.00 Indirect Bilirubin 0.7 Aspartate Amino Transf (AST/SGOT) 85 H Alanine Aminotransferase (ALT/SGPT) 57 Alkaline Phosphatase 31 #L Ammonia < 9 L Total Protein 4.2 #L Albumin 1.9 #L Globulin 2.30 Albumin/Globulin Ratio 0.82 Test 12/29/16 04:46 12/29/16 05:00 12/29/16 08:14 12/29/16 11:58 Bedside Glucose 179 172 151 Blood Gas Specimen Source Blood arterial Arterial Blood Date Drawn 12/29/2016 4:26:48 AM Arterial Blood pH (Temp corrected) 7.682 *H Arterial Blood pCO2 (Temp correct) 20.1 L Arterial Blood pO2 (Temp corrected) 165.0 H Arterial Blood HCO3 23.3 Arterial Blood Base Excess 3.3 H Arterial Blood Oxygen Saturation 98.5 Mike Test ACCEPTAB Arterial Blood Gas Puncture Site Right Radial Arterial Blood Carboxyhemoglobin 0.3 Arterial Blood Methemoglobin 0.7 Blood Gas A-a O2 Differential 61.2 H Oxyhemoglobin Percent 97.5 Total Hemoglobin 7.6 L Blood Gas Temperature 37.0 Blood Gas Respiration Rate 20.0 Blood Gas Actual Respiration Rate 20 Blood Gas Modality VENT - AC FiO2 35.0 Blood Gas Tidal Volume 550.0 Blood Gas Low PEEP Setting 5.0 Blood Gas Critical Value Read Back Lana ASHBY Blood Gas Notified Whom LW Blood Gas Notified Time 12/29/2016 4:38:38 AM Medications Medications Current Medications Pantoprazole/ Sodium Chloride (Protonix Iv/NS) 100 ml @ 10 mls/hr Q10H IV Last administered on 12/29/16 04:04; Admin Dose 10 MLS/HR; Start 12/27/16 at 12: 00 Ondansetron HCl (Zofran Inj) 4 mg Q6H PRN IV NAUSEA AND/OR VOMITING; Start at 12:00 Acetaminophen (Tylenol Tab) 650 mg Q6H PRN PO PAIN LEVEL 1-3 OR FEVER; Start at 12:00 Acetaminophen (Tylenol Supp) 650 mg Q4H PRN [place] PAIN LEVEL 1-3 OR FEVER; Start 12/27/16 at 12:00 Acetaminophen/ Hydrocodone Bitart ([place] (5/325)) 1 tab Q6H PRN PO PAIN LEVEL 4 -6; Start 12/27/16 at 12:00 Morphine Sulfate (morphine) 1 mg Q4H PRN IV PAIN LEVEL 7-10; Start 12/27/16 at 12:00 Docusate Sodium (Colace) 100 mg Q12H PRN PO CONSTIPATION; Start 12/27/16 at 12: 00 Bisacodyl 10 mg 10 mg DAILY PRN [place] CONSTIPATION; Start 12/27/16 at 12:00 Octreotide Acetate 1 mg/ Sodium Chloride 100 ml @ 5 mls/hr Q20H IV Last administered on 12/29/16 03:35; Admin Dose 5 MLS/HR; Start 12/27/16 at 12:30 Sodium Bicarbonate 100 meq/Dextrose/ Sodium Chloride 1,100 ml @ 100 mls/hr Q11H IV Last administered on 12/29/16 04:04; Admin Dose 100 MLS/HR; Start 12/27 at 15:30 Piperacillin Sod/ Tazobactam Sod (Zosyn 2.25gm/ 50ml (Pmx)) 50 ml @ 200 mls/hr Q6 IVPB Last administered on 12/29/16 12:15; Admin Dose 200 MLS/HR; Start 12/27 at 16:00 Insulin Aspart (Novolog Insulin Pen) NOVOLOG *MILD* ALGORI... Q4 SC Last administered on 12/29/16 12:00; Admin Dose 1 UNIT; Start 12/27/16 at 17:00 Miscellaneous Information 1 ea NOTE XX ; Start 12/27/16 at 16:30 Glucose (Glutose) 15 gm Q15M PRN PO DECREASED GLUCOSE; Start 12/27/16 at 16:30 Glucose (Glutose) 22.5 gm Q15M PRN PO DECREASED GLUCOSE; Start 12/27/16 at 16: 30 Dextrose (D50w Syringe) 25 ml Q15M PRN IV DECREASED GLUCOSE; Start 12/27/16 at 16:30 Dextrose (D50w Syringe) 50 ml Q15M PRN IV DECREASED GLUCOSE; Start 12/27/16 at 16:30 Glucagon (Glucagen) 1 mg Q15M PRN IM DECREASED GLUCOSE; Start 12/27/16 at 16:30 Glucose (Glutose) 15 gm Q15M PRN BUCCAL DECREASED GLUCOSE; Start 12/27/16 at 16 :30 Lactulose 100 ml 100 ml Q6 [place] Last administered on 12/29/16 12:16; Admin Dose 100 ML; Start 12/28/16 at 15:00 Fentanyl 100 ml @ 5 mls/hr TITRATE IV ; Start 12/28/16 at 15:00 Propofol 100 ml @ 1.551 mls/ hr Q12H IV Last administered on 12/29/16 09:06; Admin Dose 2.482 MLS/HR; Start 12/28/16 at 15:00 Amiodarone HCl/ Dextrose (Cordarone Iv/ D5W) 500 ml @ 0 mls/hr Q0M IV ; Start at 17:00 Digoxin 125 mcg 125 mcg DAILY@13 IV Last administered on 12/29/16 12:16; Admin Dose 125 MCG; Start 12/29/16 at 13:00 Potassium Chloride (KCl 40 MEQ/250 ML NS) 250 ml @ 62.5 mls/hr Q4H IVPB Last administered on 12/29/16 12:17; Admin Dose 62.5 MLS/HR; Start 12/29/16 at 08:30; Stop 12/29/16 at 16:29 Tobramycin Sulfate (Tobrex 0.3% Oph Drop) 1 drop QID BOTH EYES Last administered on 12/29/16 12:16; Admin Dose 1 DROP; Start 12/29/16 at 13:00; Stop 01/05/17 at 12:59 GAL LIZARRAGA MD Dec 29, 2016 12:56
--- NOTE | 2016-12-29 13:54 | CONS ---
Date/Time of Note Date/Time of Note DATE: 12/29/16 TIME: 13:50 Consult Date/Type/Reason Admit Date/Time Dec 27, 2016 at 10:02 Type of Consultation: Pulm/CCM Subjective H/H drop noted. On vent, somnolent without sedation. Objective Vital Signs Date Time Temp Pulse Resp B/P Pulse Ox O2 Delivery O2 Flow Rate FiO2 12/29/16 12:00 57 12/29/16 08:00 30 12/29/16 06:00 14 133/40 100 Mechanical Ventilator 12/29/16 04:00 98.3 12/27/16 09:45 2.0 Intake and Output 12/28/16 12/28/16 12/29/16 15:00 23:00 07:00 Intake Total 3.75 ml 688.06 ml 1076.74 ml Output Total 175 ml 350 ml Balance 3.75 ml 513.06 ml 726.74 ml Exam NECK: Supple. No JVD or lymphadenopathy, ET tube in place CARDIAC: S1, S2, no added sounds or murmurs. CHEST: Clear ABDOMEN: Soft, nontender. No guarding or rebound. EXTREMITIES: No cyanosis, clubbing, or edema. Results/Medications Result Diagram: 12/29/16 0441 12/29/16 0441 Results 24 hrs Laboratory Tests Test 12/28/16 16:28 12/28/16 20:00 12/29/16 00:48 12/29/16 04:41 Bedside Glucose 179 172 193 White Blood Count 6.8 # Red Blood Count 2.14 L Hemoglobin 6.8 *L Hematocrit 19.6 L Mean Corpuscular Volume 91.6 Mean Corpuscular Hemoglobin 31.8 Mean Corpuscular Hemoglobin Concent 34.7 Red Cell Distribution Width 16.0 H Platelet Count 58 #L Mean Platelet Volume 11.2 H Neutrophils % 77.4 H Lymphocytes % 12.0 L Monocytes % 8.8 Eosinophils % 0.6 Basophils % 0.3 Nucleated Red Blood Cells % 0.0 Neutrophils # 5.3 Lymphocytes # 0.8 Monocytes # 0.6 Eosinophils # 0.0 Basophils # 0.0 Nucleated Red Blood Cells # 0.0 Sodium Level 134 L Potassium Level 3.1 #L Chloride Level 98 Carbon Dioxide Level 24 Anion Gap 15 Blood Urea Nitrogen 38 H Creatinine 1.15 H Glucose Level 164 Lactic Acid Level 4.4 *H Calcium Level 7.0 L Total Bilirubin 0.7 Direct Bilirubin 0.00 Indirect Bilirubin 0.7 Aspartate Amino Transf (AST/SGOT) 85 H Alanine Aminotransferase (ALT/SGPT) 57 Alkaline Phosphatase 31 #L Ammonia < 9 L Total Protein 4.2 #L Albumin 1.9 #L Globulin 2.30 Albumin/Globulin Ratio 0.82 Test 12/29/16 04:46 12/29/16 05:00 12/29/16 08:14 12/29/16 11:58 Bedside Glucose 179 172 151 Blood Gas Specimen Source Blood arterial Arterial Blood Date Drawn 12/29/2016 4:26:48 AM Arterial Blood pH (Temp corrected) 7.682 *H Arterial Blood pCO2 (Temp correct) 20.1 L Arterial Blood pO2 (Temp corrected) 165.0 H Arterial Blood HCO3 23.3 Arterial Blood Base Excess 3.3 H Arterial Blood Oxygen Saturation 98.5 Mike Test ACCEPTAB Arterial Blood Gas Puncture Site Right Radial Arterial Blood Carboxyhemoglobin 0.3 Arterial Blood Methemoglobin 0.7 Blood Gas A-a O2 Differential 61.2 H Oxyhemoglobin Percent 97.5 Total Hemoglobin 7.6 L Blood Gas Temperature 37.0 Blood Gas Respiration Rate 20.0 Blood Gas Actual Respiration Rate 20 Blood Gas Modality VENT - AC FiO2 35.0 Blood Gas Tidal Volume 550.0 Blood Gas Low PEEP Setting 5.0 Blood Gas Critical Value Read Back Lana ASHBY Blood Gas Notified Whom LW Blood Gas Notified Time 12/29/2016 4:38:38 AM Medications Current Medications Pantoprazole/ Sodium Chloride (Protonix Iv/NS) 100 ml @ 10 mls/hr Q10H IV Last administered on 12/29/16t 13:25; Admin Dose 10 MLS/HR; Start 12/27/16 at 12: 00 Ondansetron HCl (Zofran Inj) 4 mg Q6H PRN IV NAUSEA AND/OR VOMITING; Start at 12:00 Acetaminophen (Tylenol Tab) 650 mg Q6H PRN PO PAIN LEVEL 1-3 OR FEVER; Start at 12:00 Acetaminophen (Tylenol Supp) 650 mg Q4H PRN [place] PAIN LEVEL 1-3 OR FEVER; Start 12/27/16 at 12:00 Acetaminophen/ Hydrocodone Bitart ([place] (5/325)) 1 tab Q6H PRN PO PAIN LEVEL 4 -6; Start 12/27/16 at 12:00 Morphine Sulfate (morphine) 1 mg Q4H PRN IV PAIN LEVEL 7-10; Start 12/27/16 at 12:00 Docusate Sodium (Colace) 100 mg Q12H PRN PO CONSTIPATION; Start 12/27/16 at 12: 00 Bisacodyl 10 mg 10 mg DAILY PRN [place] CONSTIPATION; Start 12/27/16 at 12:00 Octreotide Acetate 1 mg/ Sodium Chloride 100 ml @ 5 mls/hr Q20H IV Last administered on 12/29/16 03:35; Admin Dose 5 MLS/HR; Start 12/27/16 at 12:30 Sodium Bicarbonate 100 meq/Dextrose/ Sodium Chloride 1,100 ml @ 100 mls/hr Q11H IV Last administered on 12/29/16 04:04; Admin Dose 100 MLS/HR; Start 12/27 at 15:30 Piperacillin Sod/ Tazobactam Sod (Zosyn 2.25gm/ 50ml (Pmx)) 50 ml @ 200 mls/hr Q6 IVPB Last administered on 12/29/16 12:15; Admin Dose 200 MLS/HR; Start 12/27 at 16:00 Insulin Aspart (Novolog Insulin Pen) NOVOLOG *MILD* ALGORI... Q4 SC Last administered on 12/29/16 12:00; Admin Dose 1 UNIT; Start 12/27/16 at 17:00 Miscellaneous Information 1 ea NOTE XX ; Start 12/27/16 at 16:30 Glucose (Glutose) 15 gm Q15M PRN PO DECREASED GLUCOSE; Start 12/27/16 at 16:30 Glucose (Glutose) 22.5 gm Q15M PRN PO DECREASED GLUCOSE; Start 12/27/16 at 16: 30 Dextrose (D50w Syringe) 25 ml Q15M PRN IV DECREASED GLUCOSE; Start 12/27/16 at 16:30 Dextrose (D50w Syringe) 50 ml Q15M PRN IV DECREASED GLUCOSE; Start 12/27/16 at 16:30 Glucagon (Glucagen) 1 mg Q15M PRN IM DECREASED GLUCOSE; Start 12/27/16 at 16:30 Glucose (Glutose) 15 gm Q15M PRN BUCCAL DECREASED GLUCOSE; Start 12/27/16 at 16 :30 Lactulose 100 ml 100 ml Q6 [place] Last administered on 12/29/16 12:16; Admin Dose 100 ML; Start 12/28/16 at 15:00 Fentanyl 100 ml @ 5 mls/hr TITRATE IV ; Start 12/28/16 at 15:00 Propofol 100 ml @ 1.551 mls/ hr Q12H IV Last administered on 12/29/16 09:06; Admin Dose 2.482 MLS/HR; Start 12/28/16 at 15:00 Amiodarone HCl/ Dextrose (Cordarone Iv/ D5W) 500 ml @ 0 mls/hr Q0M IV ; Start at 17:00 Digoxin 125 mcg 125 mcg DAILY@13 IV Last administered on 12/29/16 12:16; Admin Dose 125 MCG; Start 12/29/16 at 13:00 Potassium Chloride (KCl 40 MEQ/250 ML NS) 250 ml @ 62.5 mls/hr Q4H IVPB Last administered on 12/29/16 12:17; Admin Dose 62.5 MLS/HR; Start 12/29/16 at 08:30; Stop 12/29/16 at 16:29 Tobramycin Sulfate (Tobrex 0.3% Oph Drop) 1 drop QID BOTH EYES Last administered on 12/29/16 12:16; Admin Dose 1 DROP; Start 12/29/16 at 13:00; Stop 01/05/17 at 12:59 Assessment/Plan Additional Assessment/Plan IMPRESSION: 1. Acute gastrointestinal bleed--due esophageal variceal hemorrhages 2. AMS--possibly secondary to hep encephalopathy 3. Respiratory Failure/Vent due to AMS 4. Azotemia 5. Cirrhosis PLAN: 1. Continue mechanical ventilation. 2. D/C versed--continue propofol as needed 3. Minimize sedation 4. Lactulose [place] 5. Follow H/H; transfuse as needed. 6. De-escalate abx 35 min cc time RUPA SCOTT MD Dec 29, 2016 13:54
--- NOTE | 2016-12-29 14:38 | RADRPT ---
PROCEDURE: XR Chest. CLINICAL INDICATION: Shortness of breath TECHNIQUE: Single view of the chest COMPARISON: Chest radiograph December 27, 2016 FINDINGS: The tip of the endotracheal tube is 3.5 cm above the tiffany. There is a left subclavian line with i ts tip at the lower SVC. There is no new focal consolidation noting mild bibasilar atelectasis and atherosclerotic calcificat ions of the aorta. The cardiac silhouette is borderline enlarged. There is no pleural effusion. There is no pneumothorax. There is no acute osseous abnormality. IMPRESSION: 1. Mild bibasilar atelectasis without focal consolidation. 2. Atherosclerotic calcifications of the aorta. 3. Lines and tubes as above. RPTAT: UU .Mauro Vora MD, Date Time Electronically viewed and signed by .Mauro Vora MD, on 12/29/2016 14:38 .K/
--- NOTE | 2016-12-29 20:29 | CONS ---
Date/Time of Note Date/Time of Note DATE: 12/29/16 TIME: 20:27 Assessment/Plan Assessment/Plan Chief Complaint/Hosp Course Assessment: Paroxysmal atrial fibrillation with rapid ventricular response - reverted to sinus rhythm on amiodarone drip Acute gastrointestinal bleeding with hematemesis - status post EGD with band ligation of esophageal varices 12/27/2016 Esophageal varices Liver cirrhosis Diabetes mellitus Intubated for airway protection - on mechanical ventilation Recommendations: -echocardiogram showed LVEF 65-70% -continue amiodarone drip -continue digoxin 0.125mg IV daily -holding aspirin due to bleeding -follow up gastroenterology recommendations Problems: Consultation Date/Type/Reason Admit Date/Time Dec 27, 2016 at 10:02 Type of Consultation: Cardiology 24 HR Interval Summary Free Text/Dictation Remains in sinus rhythm. Hemodynamically stable. Intubated. Hemoglobin dropped to 6.8. Detailed Summary Additional Comments Unable to obtain review of systems, patient is intubated. Exam/Review of Systems Vital Signs Vitals Vital Signs Date Time Temp Pulse Resp B/P Pulse Ox O2 Delivery O2 Flow Rate FiO2 12/29/16 20:00 98.3 62 19 148/56 100 Mechanical Ventilator 12/29/16 20:00 30 12/27/16 09:45 2.0 Intake and Output 12/28/16 12/28/16 12/29/16 15:00 23:00 07:00 Intake Total 3.75 ml 688.06 ml 1194.22 ml Output Total 175 ml 395 ml Balance 3.75 ml 513.06 ml 799.22 ml Exam Constitutional: other (intubated), No alert Head: atraumatic, normocephalic ENMT: intubated Neck: supple Respiratory: clear to auscultation, normal air movement Cardiovascular: irregular rhythm Gastrointestinal: distended, soft Musculoskeletal: nl extremities to inspection Extremities: No clubbing, No edema Neurological: No nl mental status, No nl speech Results Result Diagram: 12/29/16 0441 12/29/16 0441 Results 24 hrs Laboratory Tests Test 12/29/16 00:48 12/29/16 04:41 12/29/16 04:46 12/29/16 05:00 Bedside Glucose 193 179 White Blood Count 6.8 # Red Blood Count 2.14 L Hemoglobin 6.8 *L Hematocrit 19.6 L Mean Corpuscular Volume 91.6 Mean Corpuscular Hemoglobin 31.8 Mean Corpuscular Hemoglobin Concent 34.7 Red Cell Distribution Width 16.0 H Platelet Count 58 #L Mean Platelet Volume 11.2 H Neutrophils % 77.4 H Lymphocytes % 12.0 L Monocytes % 8.8 Eosinophils % 0.6 Basophils % 0.3 Nucleated Red Blood Cells % 0.0 Neutrophils # 5.3 Lymphocytes # 0.8 Monocytes # 0.6 Eosinophils # 0.0 Basophils # 0.0 Nucleated Red Blood Cells # 0.0 Sodium Level 134 L Potassium Level 3.1 #L Chloride Level 98 Carbon Dioxide Level 24 Anion Gap 15 Blood Urea Nitrogen 38 H Creatinine 1.15 H Glucose Level 164 Lactic Acid Level 4.4 *H Calcium Level 7.0 L Total Bilirubin 0.7 Direct Bilirubin 0.00 Indirect Bilirubin 0.7 Aspartate Amino Transf (AST/SGOT) 85 H Alanine Aminotransferase (ALT/SGPT) 57 Alkaline Phosphatase 31 #L Ammonia < 9 L Total Protein 4.2 #L Albumin 1.9 #L Globulin 2.30 Albumin/Globulin Ratio 0.82 Blood Gas Specimen Source Blood arterial Arterial Blood Date Drawn 12/29/2016 4:26:48 AM Arterial Blood pH (Temp corrected) 7.682 *H Arterial Blood pCO2 (Temp correct) 20.1 L Arterial Blood pO2 (Temp corrected) 165.0 H Arterial Blood HCO3 23.3 Arterial Blood Base Excess 3.3 H Arterial Blood Oxygen Saturation 98.5 Mike Test ACCEPTAB Arterial Blood Gas Puncture Site Right Radial Arterial Blood Carboxyhemoglobin 0.3 Arterial Blood Methemoglobin 0.7 Blood Gas A-a O2 Differential 61.2 H Oxyhemoglobin Percent 97.5 Total Hemoglobin 7.6 L Blood Gas Temperature 37.0 Blood Gas Respiration Rate 20.0 Blood Gas Actual Respiration Rate 20 Blood Gas Modality VENT - AC FiO2 35.0 Blood Gas Tidal Volume 550.0 Blood Gas Low PEEP Setting 5.0 Blood Gas Critical Value Read Back Lana ASHBY Blood Gas Notified Whom LW Blood Gas Notified Time 12/29/2016 4:38:38 AM Test 12/29/16 08:14 12/29/16 11:58 12/29/16 16:01 12/29/16 20:05 Bedside Glucose 172 151 145 161 Medications Medications Current Medications Pantoprazole/ Sodium Chloride (Protonix Iv/NS) 100 ml @ 10 mls/hr Q10H IV Last administered on 12/29/16 13:25; Admin Dose 10 MLS/HR; Start 12/27/16 at 12: 00 Ondansetron HCl (Zofran Inj) 4 mg Q6H PRN IV NAUSEA AND/OR VOMITING; Start at 12:00 Acetaminophen (Tylenol Tab) 650 mg Q6H PRN PO PAIN LEVEL 1-3 OR FEVER; Start at 12:00 Acetaminophen (Tylenol Supp) 650 mg Q4H PRN [place] PAIN LEVEL 1-3 OR FEVER; Start 12/27/16 at 12:00 Acetaminophen/ Hydrocodone Bitart ([place] (5/325)) 1 tab Q6H PRN PO PAIN LEVEL 4 -6; Start 12/27/16 at 12:00 Morphine Sulfate (morphine) 1 mg Q4H PRN IV PAIN LEVEL 7-10; Start 12/27/16 at 12:00 Docusate Sodium (Colace) 100 mg Q12H PRN PO CONSTIPATION; Start 12/27/16 at 12: 00 Bisacodyl 10 mg 10 mg DAILY PRN [place] CONSTIPATION; Start 12/27/16 at 12:00 Octreotide Acetate 1 mg/ Sodium Chloride 100 ml @ 5 mls/hr Q20H IV Last administered on 12/29/16 03:35; Admin Dose 5 MLS/HR; Start 12/27/16 at 12:30 Sodium Bicarbonate 100 meq/Dextrose/ Sodium Chloride 1,100 ml @ 100 mls/hr Q11H IV Last administered on 12/29/16 17:29; Admin Dose 100 MLS/HR; Start 12/27 at 15:30 Piperacillin Sod/ Tazobactam Sod (Zosyn 2.25gm/ 50ml (Pmx)) 50 ml @ 200 mls/hr Q6 IVPB Last administered on 12/29/16 17:16; Admin Dose 200 MLS/HR; Start 12/27 at 16:00 Insulin Aspart (Novolog Insulin Pen) NOVOLOG *MILD* ALGORI... Q4 [place] Last administered on 12/29/16 16:03; Admin Dose 1 UNIT; Start 12/27/16 at 17:00 Miscellaneous Information 1 ea NOTE XX ; Start 12/27/16 at 16:30 Glucose (Glutose) 15 gm Q15M PRN PO DECREASED GLUCOSE; Start 12/27/16 at 16:30 Glucose (Glutose) 22.5 gm Q15M PRN PO DECREASED GLUCOSE; Start 12/27/16 at 16: 30 Dextrose (D50w Syringe) 25 ml Q15M PRN IV DECREASED GLUCOSE; Start 12/27/16 at 16:30 Dextrose (D50w Syringe) 50 ml Q15M PRN IV DECREASED GLUCOSE; Start 12/27/16 at 16:30 Glucagon (Glucagen) 1 mg Q15M PRN IM DECREASED GLUCOSE; Start 12/27/16 at 16:30 Glucose (Glutose) 15 gm Q15M PRN BUCCAL DECREASED GLUCOSE; Start 12/27/16 at 16 :30 Lactulose 100 ml 100 ml Q6 [place] Last administered on 12/29/16 17:16; Admin Dose 100 ML; Start 12/28/16 at 15:00 Fentanyl 100 ml @ 5 mls/hr TITRATE IV ; Start 12/28/16 at 15:00 Propofol 100 ml @ 1.551 mls/ hr Q12H IV Last administered on 12/29/16 14:21; Admin Dose 2.482 MLS/HR; Start 12/28/16 at 15:00 Amiodarone HCl/ Dextrose (Cordarone Iv/ D5W) 500 ml @ 0 mls/hr Q0M IV ; Start at 17:00 Digoxin (Digoxin) 125 mcg DAILY@13 IV Last administered on 12/29/16 12:16; Admin Dose 125 MCG; Start 12/29/16 at 13:00 Tobramycin Sulfate (Tobrex 0.3% Oph Drop) 1 drop QID BOTH EYES Last administered on 12/29/16 16:03; Admin Dose 1 DROP; Start 12/29/16 at 13:00; Stop 01/05/17 at 12:59 PACO JEAN MD Dec 29, 2016 20:28
[2016-12-30] VITALS (46 sets, daily range): BP systolic 106–149; BP diastolic 32–103; PULSE 44–69; RESP 15–28
[2016-12-30] MEDS: LACTULOSE ENEMA 1,000 ML BTL PR SCH ×4 (00:16→18:00)
[2016-12-30] MEDS: PIPER-TAZO 2.25 GM (PMX) 50 ML IVPB SCH ×4 (00:16→18:42)
[2016-12-30] MEDS: INSULIN ASPART [NOVOLOG] 3 ML PEN SC SCH ×6 (00:35→21:00)
[2016-12-30] MEDS: PROPOFOL 100 ML IV SCH ×2 (03:00→12:47)
[2016-12-30 05:13] LABS: AADO2 Arterial 57.3 mmHg (7.0-24.0); Allen Test ACCEPTAB; Arterial Base Excess 5.6 mmol/L (-3.0-3); Arterial COHb 0.3 % (0.0-3.0); Arterial Fraction of Oxyhgb 97.5 % (93.0-99.0); Arterial HCO3 26.3 mmol/L (22.0-26.0); Arterial MetHb 0.2 % (0.0-1.5); Arterial Total Hemglobin 10.1 g/dl (12.0-18.0); MODE VENT - AC
[2016-12-30] MEDS: SODIUM BICARBONATE (IV ADD) 100 MEQ in DEXTROSE 5%-0.45% NACL 1,000 ML IV SCH (05:51)
[2016-12-30 06:34] LABS: ADD SCAN DIFF NO
[2016-12-30 06:41] LABS: ABNORMAL IP MESSAGE 1; BASOPHILS % 0.3 % (0.0-2.0); EOSINOPHILS # 0.1 10^3/ul (0.0-0.5); EOSINOPHILS % 1.2 % (0.0-7.0); HEMATOCRIT 27.6 % (37.0-47.0); HEMOGLOBIN 9.4 g/dl (12.0-16.0); LYMPHOCYTES # 0.9 10^3/ul (0.8-2.9); LYMPHOCYTES % 13.9 % (15.0-51.0); MEAN CORPUSCULAR HEMOGLOBIN 31.2 pg (29.0-33.0); MEAN CORPUSCULAR HGB CONC 34.1 g/dl (32.0-37.0); MEAN CORPUSCULAR VOLUME 91.7 fl (82.0-101.0); MEAN PLATELET VOLUME 10.8 fl (7.4-10.4); MONOCYTE # 0.7 10^3/ul (0.3-0.9); MONOCYTES % 11.3 % (0.0-11.0); NEUTROPHIL # 4.7 10^3/ul (1.6-7.5); NEUTROPHILS % 72.8 % (39.0-77.0); PLATELET COUNT 56 10^3/UL (140-415); RED BLOOD COUNT 3.01 10^6/ul (4.20-5.40); RED CELL DISTRIBUTION WIDTH 16.2 % (11.5-14.5); WHITE BLOOD COUNT 6.5 10^3/ul (4.8-10.8)
[2016-12-30 06:58] LABS: POTASSIUM 3.3 mmol/L (3.5-5.1)
[2016-12-30 07:00] LABS: CREATININE 1.08 mg/dl (0.44-1.00)
[2016-12-30 07:01] LABS: CALCIUM 6.7 mg/dl (8.4-10.2)
[2016-12-30] MEDS: PANTOPRAZOLE IV 80 MG in SOD CHLORIDE 0.9% 100 ML IV SCH ×2 (09:25→20:31)
[2016-12-30] MEDS: TOBRAMYCIN 0.3% 5 ML OPH BOTH EYES SCH ×4 (09:25→21:07)
[2016-12-30] MEDS: SOD CHLORIDE 0.9% 1,000 ML IV SCH (09:32)
--- NOTE | 2016-12-30 10:06 | CONS ---
Date/Time of Note Date/Time of Note DATE: 12/30/16 TIME: 10:04 Consult Date/Type/Reason Admit Date/Time Dec 27, 2016 at 10:02 Initial Consult Date Type of Consultation: pulmonary critical care Subjective Awake alert on mechanical ventilation follows simple commands Hemodynamically stable Objective Vital Signs Date Time Temp Pulse Resp B/P Pulse Ox O2 Delivery O2 Flow Rate FiO2 12/30/16 08:00 55 12/30/16 06:30 19 125/47 100 12/30/16 06:00 Mechanical Ventilator 12/30/16 05:55 30 12/30/16 05:00 98.1 12/27/16 09:45 2.0 Intake and Output 12/29/16 12/29/16 12/30/16 15:00 23:00 07:00 Intake Total 1239.84 ml 1239.84 ml 842.36 ml Output Total 455 ml 430 ml 285 ml Balance 784.84 ml 809.84 ml 557.36 ml Exam GENERAL: Chronically ill appearing lady, intubated on mechanical ventilation, appears comfortable at rest. VITAL SIGNS: As above NECK: Supple. No JVD or lymphadenopathy. CARDIAC: S1, S2, no added sounds or murmurs. CHEST: Diminished air entry bilaterally. ABDOMEN: Soft, nontender. No guarding or rebound. EXTREMITIES: No cyanosis, clubbing, or edema. NEUROLOGIC: Generalized weakness. Results/Medications Result Diagram: 12/30/16 0534 12/30/16 0534 Results 24 hrs Laboratory Tests Test 12/29/16 11:58 12/29/16 16:01 12/29/16 20:05 12/30/16 00:33 Bedside Glucose 151 145 161 202 Test 12/30/16 04:52 12/30/16 05:00 12/30/16 05:34 12/30/16 09:31 Bedside Glucose 171 175 Blood Gas Specimen Source Blood arterial Arterial Blood Date Drawn 12/30/2016 4:45:21 AM Arterial Blood pH (Temp corrected) 7.622 *H Arterial Blood pCO2 (Temp correct) 26.1 L Arterial Blood pO2 (Temp corrected) 125.9 H Arterial Blood HCO3 26.3 H Arterial Blood Base Excess 5.6 H Arterial Blood Oxygen Saturation 98.0 Mike Test ACCEPTAB Arterial Blood Gas Puncture Site Right Radial Arterial Blood Carboxyhemoglobin 0.3 Arterial Blood Methemoglobin 0.2 Blood Gas A-a O2 Differential 57.3 H Oxyhemoglobin Percent 97.5 Total Hemoglobin 10.1 L Blood Gas Temperature 37.0 Blood Gas Respiration Rate 12.0 Blood Gas Actual Respiration Rate 21 Blood Gas Modality VENT - AC FiO2 30.0 Blood Gas Tidal Volume 400.0 Blood Gas Low PEEP Setting 5.0 Blood Gas Critical Value Read Back Aman ASHBY RN Blood Gas Notified Whom MG Blood Gas Notified Time 12/30/2016 5:13:45 AM White Blood Count 6.5 Red Blood Count 3.01 #L Hemoglobin 9.4 #L Hematocrit 27.6 #L Mean Corpuscular Volume 91.7 Mean Corpuscular Hemoglobin 31.2 Mean Corpuscular Hemoglobin Concent 34.1 Red Cell Distribution Width 16.2 H Platelet Count 56 L Mean Platelet Volume 10.8 H Neutrophils % 72.8 Lymphocytes % 13.9 L Monocytes % 11.3 H Eosinophils % 1.2 Basophils % 0.3 Nucleated Red Blood Cells % 0.0 Neutrophils # 4.7 Lymphocytes # 0.9 Monocytes # 0.7 Eosinophils # 0.1 Basophils # 0.0 Nucleated Red Blood Cells # 0.0 Sodium Level 137 Potassium Level 3.3 L Chloride Level 102 Carbon Dioxide Level 26 Anion Gap 12 Blood Urea Nitrogen 29 H Creatinine 1.08 H Glucose Level 136 Lactic Acid Level 2.8 H Calcium Level 6.7 L Medications Current Medications Pantoprazole/ Sodium Chloride (Protonix Iv/NS) 100 ml @ 10 mls/hr Q10H IV Last administered on 12/30/16 09:25; Admin Dose 10 MLS/HR; Start 12/27/16 at 12: 00 Ondansetron HCl (Zofran Inj) 4 mg Q6H PRN IV NAUSEA AND/OR VOMITING; Start at 12:00 Acetaminophen (Tylenol Tab) 650 mg Q6H PRN PO PAIN LEVEL 1-3 OR FEVER; Start at 12:00 Acetaminophen (Tylenol Supp) 650 mg Q4H PRN [place] PAIN LEVEL 1-3 OR FEVER; Start 12/27/16 at 12:00 Acetaminophen/ Hydrocodone Bitart ([place] (5/325)) 1 tab Q6H PRN PO PAIN LEVEL 4 -6; Start 12/27/16 at 12:00 Morphine Sulfate (morphine) 1 mg Q4H PRN IV PAIN LEVEL 7-10; Start 12/27/16 at 12:00 Docusate Sodium (Colace) 100 mg Q12H PRN PO CONSTIPATION; Start 12/27/16 at 12: 00 Bisacodyl 10 mg 10 mg DAILY PRN [place] CONSTIPATION; Start 12/27/16 at 12:00 Octreotide Acetate 1 mg/ Sodium Chloride 100 ml @ 5 mls/hr Q20H IV Last administered on 12/29/16 23:14; Admin Dose 5 MLS/HR; Start 12/27/16 at 12:30 Piperacillin Sod/ Tazobactam Sod (Zosyn 2.25gm/ 50ml (Pmx)) 50 ml @ 200 mls/hr Q6 IVPB Last administered on 12/30/16 05:43; Admin Dose 200 MLS/HR; Start 12/27 at 16:00 Insulin Aspart (Novolog Insulin Pen) NOVOLOG *MILD* ALGORI... Q4 [place] Last administered on 12/30/16 09:33; Admin Dose 1 UNIT; Start 12/27/16 at 17:00 Miscellaneous Information 1 ea NOTE XX ; Start 12/27/16 at 16:30 Glucose (Glutose) 15 gm Q15M PRN PO DECREASED GLUCOSE; Start 12/27/16 at 16:30 Glucose (Glutose) 22.5 gm Q15M PRN PO DECREASED GLUCOSE; Start 12/27/16 at 16: 30 Dextrose (D50w Syringe) 25 ml Q15M PRN IV DECREASED GLUCOSE; Start 12/27/16 at 16:30 Dextrose (D50w Syringe) 50 ml Q15M PRN IV DECREASED GLUCOSE; Start 12/27/16 at 16:30 Glucagon (Glucagen) 1 mg Q15M PRN IM DECREASED GLUCOSE; Start 12/27/16 at 16:30 Glucose (Glutose) 15 gm Q15M PRN BUCCAL DECREASED GLUCOSE; Start 12/27/16 at 16 :30 Lactulose 100 ml 100 ml Q6 [place] Last administered on 12/30/16 05:43; Admin Dose 100 ML; Start 12/28/16 at 15:00 Fentanyl 100 ml @ 5 mls/hr TITRATE IV ; Start 12/28/16 at 15:00 Propofol 100 ml @ 1.551 mls/ hr Q12H IV Last administered on 12/29/16 14:21; Admin Dose 2.482 MLS/HR; Start 12/28/16 at 15:00 Amiodarone HCl/ Dextrose (Cordarone Iv/ D5W) 500 ml @ 0 mls/hr Q0M IV ; Start at 17:00 Digoxin (Digoxin) 125 mcg DAILY@13 IV Last administered on 12/29/16 12:16; Admin Dose 125 MCG; Start 12/29/16 at 13:00 Tobramycin Sulfate 1 drop 1 drop QID BOTH EYES Last administered on 12/30/16 09 :25; Admin Dose 1 DROP; Start 12/29/16 at 13:00; Stop 01/05/17 at 12:59 Sodium Chloride (NS) 1,000 ml @ 75 mls/hr [id number] IV Last administered on 09:32; Admin Dose 75 MLS/HR; Start 12/30/16 at 09:30 Assessment/Plan Chief Complaint/Hosp Course Assessment 1. Acute GI bleed secondary to esophageal varices 2. Status post hypovolemic shock with resuscitation 3. Anemia status post transfusion 4. Cirrhosis 5. Resolving hepatic encephalopathy 6. Thrombocytopenia secondary to above 7. Hypoxemic respiratory failure secondary to above Plan 1. CPAP weaning trial 2. Replace potassium 3. Continue GI recommendations with proton pump inhibitor 4. Speech therapy evaluation tomorrow 5. DVT and GI prophylaxis Disposition Continue intensive care monitoring Critical Care time 35 minutes Problems: YULIET MONTALVO MD, [facility] Dec 30, 2016 10:06
--- NOTE | 2016-12-30 10:22 | CONS ---
Date/Time of Note Date/Time of Note DATE: 12/30/16 TIME: 10:22 Assessment/Plan Assessment/Plan Chief Complaint/Hosp Course ASSESSMENT 1. Upper gastrointestinal bleed. s/p EGD with band ligation x 4 on 12-27-16 of bleeding esophageal varices. She is also bleeding from portal hypertensive gastropathy but no hemostasis is done as the bleeding from this is diffuse and involves the whole stomach. 2. Severe metabolic acidosis. 3. History of atrial fibrillation. Cardiology has been consulted. At this time, we will hold blood pressure since the hypotension. 4. Sepsis with lactic acid of 6. 5. Anemia, secondary to gastrointestinal bleed. 6. Dyslipidemia. Restart statin when patient is able to tolerate p.o. intake. 7. Diabetes mellitus. Place the patient on insulin sliding scale. Hold metformin at this time secondary to lactic acidosis. 8. Questionable congestive heart failure. GI Recommendations: 1. Continue IV octreotide and IV Protonix gtt. 2. Transfuse PRN hgb less than 8. 3. No NG tube as I placed bands and insertion of NG tube may displace the bands on the varices and lead to massive variceal bleeding. 4. Continue other supportive measures per primary and other consultants 5. Will hold off on EGD for today as patient's h/h increased appropriately after transfusion and no e/o overt GI bleeding in discussion with nursing staff. Also risks of repeating the EGD with patient's unstable hemodynamically is high. We will perform EGD only if patient develops e/o overt GIB 6. extremely poor prognosis 7. Dr. Bishop to resume care tomorrow Problems: Consultation Date/Type/Reason Admit Date/Time Dec 27, 2016 at 10:02 Type of Consultation: GI 24 HR Interval Summary Subjective hx not possible: pt non-verbal, pt critical status Exam/Review of Systems Vital Signs Vitals Vital Signs Date Time Temp Pulse Resp B/P Pulse Ox O2 Delivery O2 Flow Rate FiO2 12/30/16 08:00 55 12/30/16 06:30 19 125/47 100 12/30/16 06:00 Mechanical Ventilator 12/30/16 05:55 30 12/30/16 05:00 98.1 12/27/16 09:45 2.0 Intake and Output 12/29/16 12/29/16 12/30/16 15:00 23:00 07:00 Intake Total 1239.84 ml 1239.84 ml 842.36 ml Output Total 455 ml 430 ml 285 ml Balance 784.84 ml 809.84 ml 557.36 ml Exam Constitutional: frail, non-verbal Psych: confusion Head: atraumatic, normocephalic Eyes: nl lids ENMT: mucosa pink and moist, nl external ears & nose, nl lips & teeth, nl nasal mucosa & septum Neck: non-tender, supple Respiratory: clear to auscultation, normal air movement Cardiovascular: nl pulses, regular rate and rhythm Gastrointestinal: bowel sounds, soft Results Result Diagram: 12/30/16 0534 12/30/16 0534 Results 24 hrs Laboratory Tests Test 12/29/16 11:58 12/29/16 16:01 12/29/16 20:05 12/30/16 00:33 Bedside Glucose 151 145 161 202 Test 12/30/16 04:52 12/30/16 05:00 12/30/16 05:34 12/30/16 09:31 Bedside Glucose 171 175 Blood Gas Specimen Source Blood arterial Arterial Blood Date Drawn 12/30/2016 4:45:21 AM Arterial Blood pH (Temp corrected) 7.622 *H Arterial Blood pCO2 (Temp correct) 26.1 L Arterial Blood pO2 (Temp corrected) 125.9 H Arterial Blood HCO3 26.3 H Arterial Blood Base Excess 5.6 H Arterial Blood Oxygen Saturation 98.0 Mike Test ACCEPTAB Arterial Blood Gas Puncture Site Right Radial Arterial Blood Carboxyhemoglobin 0.3 Arterial Blood Methemoglobin 0.2 Blood Gas A-a O2 Differential 57.3 H Oxyhemoglobin Percent 97.5 Total Hemoglobin 10.1 L Blood Gas Temperature 37.0 Blood Gas Respiration Rate 12.0 Blood Gas Actual Respiration Rate 21 Blood Gas Modality VENT - AC FiO2 30.0 Blood Gas Tidal Volume 400.0 Blood Gas Low PEEP Setting 5.0 Blood Gas Critical Value Read Back Aman ASHBY RN Blood Gas Notified Whom MG Blood Gas Notified Time 12/30/2016 5:13:45 AM White Blood Count 6.5 Red Blood Count 3.01 #L Hemoglobin 9.4 #L Hematocrit 27.6 #L Mean Corpuscular Volume 91.7 Mean Corpuscular Hemoglobin 31.2 Mean Corpuscular Hemoglobin Concent 34.1 Red Cell Distribution Width 16.2 H Platelet Count 56 L Mean Platelet Volume 10.8 H Neutrophils % 72.8 Lymphocytes % 13.9 L Monocytes % 11.3 H Eosinophils % 1.2 Basophils % 0.3 Nucleated Red Blood Cells % 0.0 Neutrophils # 4.7 Lymphocytes # 0.9 Monocytes # 0.7 Eosinophils # 0.1 Basophils # 0.0 Nucleated Red Blood Cells # 0.0 Sodium Level 137 Potassium Level 3.3 L Chloride Level 102 Carbon Dioxide Level 26 Anion Gap 12 Blood Urea Nitrogen 29 H Creatinine 1.08 H Glucose Level 136 Lactic Acid Level 2.8 H Calcium Level 6.7 L Medications Medications Current Medications Pantoprazole/ Sodium Chloride (Protonix Iv/NS) 100 ml @ 10 mls/hr Q10H IV Last administered on 12/30/16 09:25; Admin Dose 10 MLS/HR; Start 12/27/16 at 12: 00 Ondansetron HCl (Zofran Inj) 4 mg Q6H PRN IV NAUSEA AND/OR VOMITING; Start at 12:00 Acetaminophen (Tylenol Tab) 650 mg Q6H PRN PO PAIN LEVEL 1-3 OR FEVER; Start at 12:00 Acetaminophen (Tylenol Supp) 650 mg Q4H PRN [place] PAIN LEVEL 1-3 OR FEVER; Start 12/27/16 at 12:00 Acetaminophen/ Hydrocodone Bitart ([place] (5/325)) 1 tab Q6H PRN PO PAIN LEVEL 4 -6; Start 12/27/16 at 12:00 Morphine Sulfate (morphine) 1 mg Q4H PRN IV PAIN LEVEL 7-10; Start 12/27/16 at 12:00 Docusate Sodium (Colace) 100 mg Q12H PRN PO CONSTIPATION; Start 12/27/16 at 12: 00 Bisacodyl 10 mg 10 mg DAILY PRN [place] CONSTIPATION; Start 12/27/16 at 12:00 Octreotide Acetate 1 mg/ Sodium Chloride 100 ml @ 5 mls/hr Q20H IV Last administered on 12/29/16 23:14; Admin Dose 5 MLS/HR; Start 12/27/16 at 12:30 Piperacillin Sod/ Tazobactam Sod (Zosyn 2.25gm/ 50ml (Pmx)) 50 ml @ 200 mls/hr Q6 IVPB Last administered on 12/30/16 05:43; Admin Dose 200 MLS/HR; Start 12/27 at 16:00 Insulin Aspart (Novolog Insulin Pen) NOVOLOG *MILD* [place]I... Q4 [place] Last administered on 12/30/16 09:33; Admin Dose 1 UNIT; Start 12/27/16 at 17:00 Miscellaneous Information 1 ea NOTE XX ; Start 12/27/16 at 16:30 Glucose (Glutose) 15 gm Q15M PRN PO DECREASED GLUCOSE; Start 12/27/16 at 16:30 Glucose (Glutose) 22.5 gm Q15M PRN PO DECREASED GLUCOSE; Start 12/27/16 at 16: 30 Dextrose (D50w Syringe) 25 ml Q15M PRN IV DECREASED GLUCOSE; Start 12/27/16 at 16:30 Dextrose (D50w Syringe) 50 ml Q15M PRN IV DECREASED GLUCOSE; Start 12/27/16 at 16:30 Glucagon (Glucagen) 1 mg Q15M PRN IM DECREASED GLUCOSE; Start 12/27/16 at 16:30 Glucose (Glutose) 15 gm Q15M PRN BUCCAL DECREASED GLUCOSE; Start 12/27/16 at 16 :30 Lactulose 100 ml 100 ml Q6 [place] Last administered on 12/30/16 05:43; Admin Dose 100 ML; Start 12/28/16 at 15:00 Fentanyl 100 ml @ 5 mls/hr TITRATE IV ; Start 12/28/16 at 15:00 Propofol 100 ml @ 1.551 mls/ hr Q12H IV Last administered on 12/29/16 14:21; Admin Dose 2.482 MLS/HR; Start 12/28/16 at 15:00 Amiodarone HCl/ Dextrose (Cordarone Iv/ D5W) 500 ml @ 0 mls/hr Q0M IV ; Start at 17:00 Digoxin (Digoxin) 125 mcg DAILY@13 IV Last administered on 12/29/16 12:16; Admin Dose 125 MCG; Start 12/29/16 at 13:00 Tobramycin Sulfate 1 drop 1 drop QID BOTH EYES Last administered on 12/30/16 09 :25; Admin Dose 1 DROP; Start 12/29/16 at 13:00; Stop 01/05/17 at 12:59 Sodium Chloride (NS) 1,000 ml @ 75 mls/hr [id number] IV Last administered on t 09:32; Admin Dose 75 MLS/HR; Start 12/30/16 at 09:30 GAL LIZARRAGA MD Dec 30, 2016 10:22
--- NOTE | 2016-12-30 11:18 | PN ---
Date/Time of Note Date/Time of Note DATE: 12/30/16 TIME: 11:08 Assessment/Plan VTE Prophylaxis VTE Prophylaxis Intervention: SCD's Lines/Catheters IV Catheter Type (from [facility]): Central Line Central line still needed: Yes Urinary Cath still in place: No Assessment/Plan Chief Complaint/Hosp Course ASSESSMENT AND PLAN: 1. Upper gastrointestinal bleed. Gastroenterology has been consulted. The patient has been placed on IV octreotide and IV Protonix. Status post upper endoscopy and finding of bleeding esophageal varices, s/p band ligation x 4 and oozing of severe portal hypertensive gastropathy, unable to perform banding as the oozing of blood involves the whole stomach. Continue aggressive medical management via octreotide and Protonix 2. Severe metabolic acidosis, status post bicarbonate drip. Pulmonology has been consulted. 3. Hyponatremia. Continue IV fluid. 4. History of atrial fibrillation. Cardiology has been consulted. Continue amiodarone, at this time, we will hold blood pressure since the hypotension. 5. Sepsis , The patient has been started on Zosyn and vancomycin, IV fluid. Follow up lactic acid level. 6. Anemia, likely secondary to GI bleed status post transfusion packed red blood cell. H&H is more stable at this time, continue to monitor hemoglobin and hematocrit. 7. Dyslipidemia. Restart statin when patient is able to tolerate p.o. intake. 8. Diabetes mellitus. Place the patient on insulin sliding scale. Hold metformin at this time secondary to lactic acidosis. 9. Acute respiratory failure, intubated, pulmonology following For deep venous thrombosis prophylaxis, on sequential compression devices, refrain from using any pharmacologic DVT prophylaxis secondary to gastrointestinal bleed. Critical time spent 45 minutes Problems: Subjective 24 Hr Interval Summary Free Text/Dictation Patient remains intubated Awake off sedation Bilateral soft restraints Exam/Review of Systems Vital Signs Vitals Vital Signs Date Time Temp Pulse Resp B/P Pulse Ox O2 Delivery O2 Flow Rate FiO2 12/30/16 08:00 55 12/30/16 06:30 19 125/47 100 12/30/16 06:00 Mechanical Ventilator 12/30/16 05:55 30 12/30/16 05:00 98.1 12/27/16 09:45 2.0 Intake and Output 12/29/16 12/29/16 12/30/16 15:00 23:00 07:00 Intake Total 1239.84 ml 1239.84 ml 842.36 ml Output Total 455 ml 430 ml 285 ml Balance 784.84 ml 809.84 ml 557.36 ml Exam General: The patient is intubated HEENT: Atraumatic, normocephalic. The pupils are equal and round . Neck: Supple Chest: Normal expansion of the thorax during inspiration Lungs: Clear to auscultation bilaterally Heart: Normal S1-S2, Regular rhythm and rate. Abdomen: Soft , nontender, nondistended , bowel sounds are present. 33 cm umbilical hernia Extremities: Normal to inspection, no edema no cyanosis Neurologic: Arousable but does not follow complex command Results Result Diagram: 12/30/16 0534 12/30/16 0534 Results 24 hrs Laboratory Tests Test 12/29/16 11:58 12/29/16 16:01 12/29/16 20:05 12/30/16 00:33 Bedside Glucose 151 145 161 202 Test 12/30/16 04:52 12/30/16 05:00 12/30/16 05:34 12/30/16 09:31 Bedside Glucose 171 175 Blood Gas Specimen Source Blood arterial Arterial Blood Date Drawn 12/30/2016 4:45:21 AM Arterial Blood pH (Temp corrected) 7.622 *H Arterial Blood pCO2 (Temp correct) 26.1 L Arterial Blood pO2 (Temp corrected) 125.9 H Arterial Blood HCO3 26.3 H Arterial Blood Base Excess 5.6 H Arterial Blood Oxygen Saturation 98.0 Mike Test ACCEPTAB Arterial Blood Gas Puncture Site Right Radial Arterial Blood Carboxyhemoglobin 0.3 Arterial Blood Methemoglobin 0.2 Blood Gas A-a O2 Differential 57.3 H Oxyhemoglobin Percent 97.5 Total Hemoglobin 10.1 L Blood Gas Temperature 37.0 Blood Gas Respiration Rate 12.0 Blood Gas Actual Respiration Rate 21 Blood Gas Modality VENT - AC FiO2 30.0 Blood Gas Tidal Volume 400.0 Blood Gas Low PEEP Setting 5.0 Blood Gas Critical Value Read Back Aman ASHBY RN Blood Gas Notified Whom MG Blood Gas Notified Time 12/30/2016 5:13:45 AM White Blood Count 6.5 Red Blood Count 3.01 #L Hemoglobin 9.4 #L Hematocrit 27.6 #L Mean Corpuscular Volume 91.7 Mean Corpuscular Hemoglobin 31.2 Mean Corpuscular Hemoglobin Concent 34.1 Red Cell Distribution Width 16.2 H Platelet Count 56 L Mean Platelet Volume 10.8 H Neutrophils % 72.8 Lymphocytes % 13.9 L Monocytes % 11.3 H Eosinophils % 1.2 Basophils % 0.3 Nucleated Red Blood Cells % 0.0 Neutrophils # 4.7 Lymphocytes # 0.9 Monocytes # 0.7 Eosinophils # 0.1 Basophils # 0.0 Nucleated Red Blood Cells # 0.0 Sodium Level 137 Potassium Level 3.3 L Chloride Level 102 Carbon Dioxide Level 26 Anion Gap 12 Blood Urea Nitrogen 29 H Creatinine 1.08 H Glucose Level 136 Lactic Acid Level 2.8 H Calcium Level 6.7 L Medications Medications Current Medications Pantoprazole/ Sodium Chloride (Protonix Iv/NS) 100 ml @ 10 mls/hr Q10H IV Last administered on 12/30/16 09:25; Admin Dose 10 MLS/HR; Start 12/27/16 at 12: 00 Ondansetron HCl (Zofran Inj) 4 mg Q6H PRN IV NAUSEA AND/OR VOMITING; Start at 12:00 Acetaminophen (Tylenol Tab) 650 mg Q6H PRN PO PAIN LEVEL 1-3 OR FEVER; Start at 12:00 Acetaminophen (Tylenol Supp) 650 mg Q4H PRN [place] PAIN LEVEL 1-3 OR FEVER; Start 12/27/16 at 12:00 Acetaminophen/ Hydrocodone Bitart ([place] (5/325)) 1 tab Q6H PRN PO PAIN LEVEL 4 -6; Start 12/27/16 at 12:00 Morphine Sulfate (morphine) 1 mg Q4H PRN IV PAIN LEVEL 7-10; Start 12/27/16 at 12:00 Docusate Sodium (Colace) 100 mg Q12H PRN PO CONSTIPATION; Start 12/27/16 at 12: 00 Bisacodyl 10 mg 10 mg DAILY PRN [place] CONSTIPATION; Start 12/27/16 at 12:00 Octreotide Acetate 1 mg/ Sodium Chloride 100 ml @ 5 mls/hr Q20H IV Last administered on 12/29/16 23:14; Admin Dose 5 MLS/HR; Start 12/27/16 at 12:30 Piperacillin Sod/ Tazobactam Sod (Zosyn 2.25gm/ 50ml (Pmx)) 50 ml @ 200 mls/hr Q6 IVPB Last administered on 12/30/16 05:43; Admin Dose 200 MLS/HR; Start 12/27 at 16:00 Insulin Aspart (Novolog Insulin Pen) NOVOLOG *MILD* ALGORI... Q4 SC Last administered on 12/30/16 09:33; Admin Dose 1 UNIT; Start 12/27/16 at 17:00 Miscellaneous Information 1 ea NOTE XX ; Start 12/27/16 at 16:30 Glucose (Glutose) 15 gm Q15M PRN PO DECREASED GLUCOSE; Start 12/27/16 at 16:30 Glucose (Glutose) 22.5 gm Q15M PRN PO DECREASED GLUCOSE; Start 12/27/16 at 16: 30 Dextrose (D50w Syringe) 25 ml Q15M PRN IV DECREASED GLUCOSE; Start 12/27/16 at 16:30 Dextrose (D50w Syringe) 50 ml Q15M PRN IV DECREASED GLUCOSE; Start 12/27/16 at 16:30 Glucagon (Glucagen) 1 mg Q15M PRN IM DECREASED GLUCOSE; Start 12/27/16 at 16:30 Glucose (Glutose) 15 gm Q15M PRN BUCCAL DECREASED GLUCOSE; Start 12/27/16 at 16 :30 Lactulose 100 ml 100 ml Q6 TN Last administered on 12/30/16 05:43; Admin Dose 100 ML; Start 12/28/16 at 15:00 Fentanyl 100 ml @ 5 mls/hr TITRATE IV ; Start 12/28/16 at 15:00 Propofol 100 ml @ 1.551 mls/ hr Q12H IV Last administered on 12/29/16 14:21; Admin Dose 2.482 MLS/HR; Start 12/28/16 at 15:00 Amiodarone HCl/ Dextrose (Cordarone Iv/ D5W) 500 ml @ 0 mls/hr Q0M IV ; Start at 17:00 Digoxin (Digoxin) 125 mcg DAILY@13 IV Last administered on 12/29/16 12:16; Admin Dose 125 MCG; Start 12/29/16 at 13:00 Tobramycin Sulfate 1 drop 1 drop QID BOTH EYES Last administered on 12/30/16 09 :25; Admin Dose 1 DROP; Start 12/29/16 at 13:00; Stop 01/05/17 at 12:59 Sodium Chloride 1,000 ml @ 75 mls/hr [id number] IV Last administered on 12/30/16t 09:32; Admin Dose 75 MLS/HR; Start 12/30/16 at 09:30 Potassium Chloride/Sodium Chloride (KCl/NS) 110 ml @ 55 mls/hr ONCE ONCE IVPB ; Start 12/30/16 at 12:00; Stop 12/30/16 at 13:59 OZIEL HAMPTON MD Dec 30, 2016 11:18
[2016-12-30 11:31] LABS: AADO2 Arterial 80.6 mmHg (7.0-24.0); Allen Test ACCEPTAB; Arterial COHb 0.3 % (0.0-3.0); Arterial Fraction of Oxyhgb 96.6 % (93.0-99.0); Arterial HCO3 26.5 mmol/L (22.0-26.0); Arterial MetHb 0.3 % (0.0-1.5); Arterial Total Hemglobin 10.9 g/dl (12.0-18.0); Blood Gas PS 10; MODE VENT - CPAP
[2016-12-30] MEDS ORDERED: POTASSIUM CHLORIDE 20 MEQ in SOD CHLORIDE 0.9% 100 ML IVPB ONE (12:00)
[2016-12-30] MEDS: DIGOXIN 500 MCG INJ IV SCH (12:47)
--- NOTE | 2016-12-30 15:47 | CONS ---
Date/Time of Note Date/Time of Note DATE: 12/30/16 TIME: 15:43 Assessment/Plan Assessment/Plan Chief Complaint/Hosp Course Assessment: Paroxysmal atrial fibrillation with rapid ventricular response - reverted to sinus rhythm with amiodarone drip, now sinus bradycardia Acute gastrointestinal bleeding with hematemesis - status post EGD with band ligation of esophageal varices 12/27/2016 Esophageal varices Liver cirrhosis Diabetes mellitus Intubated for airway protection - on mechanical ventilation Recommendations: -echocardiogram showed LVEF 65-70% -status post amiodarone drip, discontinued due to bradycardia -discontinue digoxin -holding aspirin due to bleeding -follow up gastroenterology recommendations Problems: Consultation Date/Type/Reason Admit Date/Time Dec 27, 2016 at 10:02 Type of Consultation: Cardiology 24 HR Interval Summary Free Text/Dictation Extubated today. Hemoglobin 9.4 today, responded appropriately to pRBC transfusions. Sinus bradycardia, amiodarone drip was discontinued due low heart rates. Exam/Review of Systems Vital Signs Vitals Vital Signs Date Time Temp Pulse Resp B/P Pulse Ox O2 Delivery O2 Flow Rate FiO2 12/30/16 13:30 54 19 123/42 100 Mechanical Ventilator 12/30/16 12:03 2.0 12/30/16 12:00 98.0 12/30/16 08:00 30 Intake and Output 12/29/16 12/29/16 12/30/16 15:00 23:00 07:00 Intake Total 1239.84 ml 1239.84 ml 842.36 ml Output Total 455 ml 430 ml 285 ml Balance 784.84 ml 809.84 ml 557.36 ml Exam Constitutional: alert, no distress Head: atraumatic, normocephalic Neck: supple Respiratory: clear to auscultation, normal air movement Cardiovascular: irregular rhythm Gastrointestinal: distended, soft Musculoskeletal: nl extremities to inspection Extremities: No clubbing, No edema Neurological: Nl mental status, Nl speech Results Result Diagram: 12/30/16 0534 12/30/16 0534 Results 24 hrs Laboratory Tests Test 12/29/16 16:01 12/29/16 20:05 12/30/16 00:33 12/30/16 04:52 Bedside Glucose 145 161 202 171 Test 12/30/16 05:00 12/30/16 05:34 4/3/17 09:31 12/30/16 11:15 Blood Gas Specimen Source Blood arterial Blood arterial Arterial Blood Date Drawn 12/30/2016 4:45:21 AM 12/30/2016 11:20:11 AM Arterial Blood pH (Temp corrected) 7.622 *H 7.582 *H Arterial Blood pCO2 (Temp correct) 26.1 L 28.8 L Arterial Blood pO2 (Temp corrected) 125.9 H 99.5 H Arterial Blood HCO3 26.3 H 26.5 H Arterial Blood Base Excess 5.6 H 5.0 H Arterial Blood Oxygen Saturation 98.0 97.2 Mike Test ACCEPTAB ACCEPTAB Arterial Blood Gas Puncture Site Right Radial Right Radial Arterial Blood Carboxyhemoglobin 0.3 0.3 Arterial Blood Methemoglobin 0.2 0.3 Blood Gas A-a O2 Differential 57.3 H 80.6 H Oxyhemoglobin Percent 97.5 96.6 Total Hemoglobin 10.1 L 10.9 L Blood Gas Temperature 37.0 37.0 Blood Gas Respiration Rate 12.0 Blood Gas Actual Respiration Rate 21 20 Blood Gas Modality VENT - AC VENT - CPAP FiO2 30.0 30.0 Blood Gas Tidal Volume 400.0 Blood Gas Low PEEP Setting 5.0 5.0 Blood Gas Critical Value Read Back Aman ASHBY RN Y AGUS RN Blood Gas Notified Whom MG JLD Blood Gas Notified Time 12/30/2016 5:13:45 AM 12/30/2016 11:31:09 AM White Blood Count 6.5 Red Blood Count 3.01 #L Hemoglobin 9.4 #L Hematocrit 27.6 #L Mean Corpuscular Volume 91.7 Mean Corpuscular Hemoglobin 31.2 Mean Corpuscular Hemoglobin Concent 34.1 Red Cell Distribution Width 16.2 H Platelet Count 56 L Mean Platelet Volume 10.8 H Neutrophils % 72.8 Lymphocytes % 13.9 L Monocytes % 11.3 H Eosinophils % 1.2 Basophils % 0.3 Nucleated Red Blood Cells % 0.0 Neutrophils # 4.7 Lymphocytes # 0.9 Monocytes # 0.7 Eosinophils # 0.1 Basophils # 0.0 Nucleated Red Blood Cells # 0.0 Sodium Level 137 Potassium Level 3.3 L Chloride Level 102 Carbon Dioxide Level 26 Anion Gap 12 Blood Urea Nitrogen 29 H Creatinine 1.08 H Glucose Level 136 Lactic Acid Level 2.8 H Calcium Level 6.7 L Bedside Glucose 175 Blood Gas Pressure Support 10 Test 12/30/16 12:49 Bedside Glucose 137 Medications Medications Current Medications Pantoprazole/ Sodium Chloride (Protonix Iv/NS) 100 ml @ 10 mls/hr Q10H IV Last administered on 12/30/16 09:25; Admin Dose 10 MLS/HR; Start 12/27/16 at 12: 00 Ondansetron HCl (Zofran Inj) 4 mg Q6H PRN IV NAUSEA AND/OR VOMITING; Start at 12:00 Acetaminophen (Tylenol Tab) 650 mg Q6H PRN PO PAIN LEVEL 1-3 OR FEVER; Start at 12:00 Acetaminophen (Tylenol Supp) 650 mg Q4H PRN [place] PAIN LEVEL 1-3 OR FEVER; Start 12/27/16 at 12:00 Acetaminophen/ Hydrocodone Bitart ([place] (5/325)) 1 tab Q6H PRN PO PAIN LEVEL 4 -6; Start 12/27/16 at 12:00 Morphine Sulfate (morphine) 1 mg Q4H PRN IV PAIN LEVEL 7-10; Start 12/27/16 at 12:00 Docusate Sodium (Colace) 100 mg Q12H PRN PO CONSTIPATION; Start 12/27/16 at 12: 00 Bisacodyl 10 mg 10 mg DAILY PRN [place] CONSTIPATION; Start 12/27/16 at 12:00 Octreotide Acetate 1 mg/ Sodium Chloride 100 ml @ 5 mls/hr Q20H IV Last administered on 12/29/16 23:14; Admin Dose 5 MLS/HR; Start 12/27/16 at 12:30 Piperacillin Sod/ Tazobactam Sod (Zosyn 2.25gm/ 50ml (Pmx)) 50 ml @ 200 mls/hr Q6 IVPB Last administered on 12/30/16 12:46; Admin Dose 200 MLS/HR; Start 12/27 at 16:00 Insulin Aspart (Novolog Insulin Pen) NOVOLOG *MILD* ALGORI... Q4 SC Last administered on 12/30/16 09:33; Admin Dose 1 UNIT; Start 12/27/16 at 17:00 Miscellaneous Information 1 ea NOTE XX ; Start 12/27/16 at 16:30 Glucose (Glutose) 15 gm Q15M PRN PO DECREASED GLUCOSE; Start 12/27/16 at 16:30 Glucose (Glutose) 22.5 gm Q15M PRN PO DECREASED GLUCOSE; Start 12/27/16 at 16: 30 Dextrose (D50w Syringe) 25 ml Q15M PRN IV DECREASED GLUCOSE; Start 12/27/16 at 16:30 Dextrose (D50w Syringe) 50 ml Q15M PRN IV DECREASED GLUCOSE; Start 12/27/16 at 16:30 Glucagon (Glucagen) 1 mg Q15M PRN IM DECREASED GLUCOSE; Start 12/27/16 at 16:30 Glucose (Glutose) 15 gm Q15M PRN BUCCAL DECREASED GLUCOSE; Start 12/27/16 at 16 :30 Lactulose 100 ml 100 ml Q6 ID Last administered on 12/30/16 12:46; Admin Dose 100 ML; Start 12/28/16 at 15:00 Fentanyl 100 ml @ 5 mls/hr TITRATE IV ; Start 12/28/16 at 15:00 Propofol (Diprivan) 100 ml @ 1.551 mls/ hr Q12H IV Last administered on 14:21; Admin Dose 2.482 MLS/HR; Start 12/28/16 at 15:00 Digoxin (Digoxin) 125 mcg DAILY@13 IV Last administered on 12/29/16 12:16; Admin Dose 125 MCG; Start 12/29/16 at 13:00 Tobramycin Sulfate 1 drop 1 drop QID BOTH EYES Last administered on 12/30/16 12 :46; Admin Dose 1 DROP; Start 12/29/16 at 13:00; Stop 01/05/17 at 12:59 Sodium Chloride (NS) 1,000 ml @ 75 mls/hr [id number] IV Last administered on 09:32; Admin Dose 75 MLS/HR; Start 12/30/16 at 09:30 PACO JEAN MD Dec 30, 2016 15:47
[2016-12-30] MEDS: OCTREOTIDE 1 MG in SOD CHLORIDE 0.9% 95 ML IV SCH (20:31)
[2016-12-30] MEDS: morphine 2 MG INJ IV PRN (22:12)
[2016-12-30 22:25] LABS: HEMOGLOBIN 9.6 g/dl (12.0-16.0)
[2016-12-31] VITALS (16 sets, daily range): BP systolic 93–160; BP diastolic 46–86; PULSE 50–68; RESP 5–21
[2016-12-31] MEDS: SOD CHLORIDE 0.9% 1,000 ML IV SCH ×2 (00:41→15:11)
[2016-12-31] MEDS: INSULIN ASPART [NOVOLOG] 3 ML PEN SC SCH ×6 (01:00→21:00)
[2016-12-31] MEDS: PIPER-TAZO 2.25 GM (PMX) 50 ML IVPB SCH ×4 (01:19→17:31)
[2016-12-31] MEDS: PROPOFOL 100 ML IV SCH (03:00)
[2016-12-31] MEDS: PANTOPRAZOLE IV 80 MG in SOD CHLORIDE 0.9% 100 ML IV SCH ×2 (06:06→16:39)
[2016-12-31] MEDS: LACTULOSE ENEMA 1,000 ML BTL PR SCH ×4 (06:07→17:29)
[2016-12-31] MEDS: morphine 2 MG INJ IV PRN (08:12)
[2016-12-31] MEDS: TOBRAMYCIN 0.3% 5 ML OPH BOTH EYES SCH ×4 (08:12→21:12)
--- NOTE | 2016-12-31 09:30 | CONS ---
Date/Time of Note Date/Time of Note DATE: 12/31/16 TIME: 09:25 Assessment/Plan Assessment/Plan Additional Assessment/Plan Assessment recommendations; 1. Patient admitted for upper GI bleed due to esophageal varices with respiratory failure no successfully extubated. 2. Cirrhosis. 3. Thrombocytopenia. 4. Anemia. 5. Possibly some element of aspiration pneumonia, patient currently on adequate antibiotic regimen. 6. Reducible umbilical hernia. Continue current treatment. Continue Sandostatin drip. Patient can be transferred to the medical floor. Consultation Date/Type/Reason Admit Date/Time Dec 27, 2016 at 10:02 Initial Consult Date Type of Consultation: Pulmonary/critical care 24 HR Interval Summary Free Text/Dictation Patient condition stable. She was successfully extubated yesterday afternoon. Remains awake and alert. Denies any shortness of breath, any nausea, vomiting. Any abdominal pain. General exam; elderly woman, awake and alert. Currently in no distress. Exam/Review of Systems Vital Signs Vitals Vital Signs Date Time Temp Pulse Resp B/P Pulse Ox O2 Delivery O2 Flow Rate FiO2 12/31/16 08:00 60 21 152/62 100 Nasal Cannula 3.0 12/31/16 07:30 97.9 12/30/16 11:30 30 Intake and Output 12/30/16 12/30/16 12/31/16 15:00 23:00 07:00 Intake Total 915 ml 500 ml 995 ml Output Total 225 ml 265 ml 210 ml Balance 690 ml 235 ml 785 ml Exam HEENT exam; supple neck, edentulous. No JVD. No lymphadenopathy. Midline trachea. Pupils are midsize bilaterally. No neck masses. No thyromegaly. Chest exam is; clear to auscultation bilaterally. S1-S2 audible no murmurs. Regular rhythm. Abdomen examination; soft, there is a reducible umbilical hernia. Bowel sounds audible. No organomegaly. Nondistended abdomen nontender. Extremity exam is; no peripheral edema. Pulses 1+ bilaterally. Next TEMPLATE FITTER exam is; patient is awake alert able to talk and moves all 4 extremities on command. Results Result Diagram: 12/30/16 2220 12/30/16 0534 Results 24 hrs Laboratory Tests Test 12/30/16 09:31 12/30/16 11:15 12/30/16 12:49 12/30/16 18:00 Bedside Glucose 175 137 139 Blood Gas Specimen Source Blood arterial Arterial Blood Date Drawn 12/30/2016 11:20:11 AM Arterial Blood pH (Temp corrected) 7.582 *H Arterial Blood pCO2 (Temp correct) 28.8 L Arterial Blood pO2 (Temp corrected) 99.5 H Arterial Blood HCO3 26.5 H Arterial Blood Base Excess 5.0 H Arterial Blood Oxygen Saturation 97.2 Mike Test ACCEPTAB Arterial Blood Gas Puncture Site Right Radial Arterial Blood Carboxyhemoglobin 0.3 Arterial Blood Methemoglobin 0.3 Blood Gas A-a O2 Differential 80.6 H Oxyhemoglobin Percent 96.6 Total Hemoglobin 10.9 L Blood Gas Temperature 37.0 Blood Gas Actual Respiration Rate 20 Blood Gas Modality VENT - CPAP FiO2 30.0 Blood Gas Low PEEP Setting 5.0 Blood Gas Pressure Support 10 Blood Gas Critical Value Read Back Y AGUS DONOVAN Blood Gas Notified Whom JLD Blood Gas Notified Time 12/30/2016 11:31:09 AM Test 12/30/16 18:26 12/30/16 21:06 12/30/16 22:20 12/31/16 01:23 Lactic Acid Level 1.5 Bedside Glucose 125 125 Hemoglobin 9.6 L Hematocrit 28.0 L Test 12/31/16 06:05 12/31/16 08:48 Bedside Glucose 119 141 Medications Medications Current Medications Pantoprazole/ Sodium Chloride (Protonix Iv/NS) 100 ml @ 10 mls/hr Q10H IV Last administered on 12/31/16 06:06; Admin Dose 10 MLS/HR; Start 12/27/16 at 12: 00 Ondansetron HCl (Zofran Inj) 4 mg Q6H PRN IV NAUSEA AND/OR VOMITING; Start at 12:00 Acetaminophen (Tylenol Tab) 650 mg Q6H PRN PO PAIN LEVEL 1-3 OR FEVER; Start at 12:00 Acetaminophen (Tylenol Supp) 650 mg Q4H PRN [place] PAIN LEVEL 1-3 OR FEVER; Start 12/27/16 at 12:00 Acetaminophen/ Hydrocodone Bitart ([place] (5/325)) 1 tab Q6H PRN PO PAIN LEVEL 4 -6; Start 12/27/16 at 12:00 Morphine Sulfate (morphine) 1 mg Q4H PRN IV PAIN LEVEL 7-10 Last administered on 12/31/16 08:12; Admin Dose 1 MG; Start 12/27/16 at 12:00 Docusate Sodium (Colace) 100 mg Q12H PRN PO CONSTIPATION; Start 12/27/16 at 12: 00 Bisacodyl 10 mg 10 mg DAILY PRN [place] CONSTIPATION; Start 12/27/16 at 12:00 Octreotide Acetate 1 mg/ Sodium Chloride 100 ml @ 5 mls/hr Q20H IV Last administered on 12/30/16 20:31; Admin Dose 5 MLS/HR; Start 12/27/16 at 12:30 Piperacillin Sod/ Tazobactam Sod (Zosyn 2.25gm/ 50ml (Pmx)) 50 ml @ 200 mls/hr Q6 IVPB Last administered on 12/31/16 06:06; Admin Dose 200 MLS/HR; Start 12/27 at 16:00 Insulin Aspart (Novolog Insulin Pen) NOVOLOG *MILD* ALGORI... Q4 SC Last administered on 12/31/16 08:54; Admin Dose 1 UNIT; Start 12/27/16 at 17:00 Miscellaneous Information 1 ea NOTE XX ; Start 12/27/16 at 16:30 Glucose (Glutose) 15 gm Q15M PRN PO DECREASED GLUCOSE; Start 12/27/16 at 16:30 Glucose (Glutose) 22.5 gm Q15M PRN PO DECREASED GLUCOSE; Start 12/27/16 at 16: 30 Dextrose (D50w Syringe) 25 ml Q15M PRN IV DECREASED GLUCOSE; Start 12/27/16 at 16:30 Dextrose (D50w Syringe) 50 ml Q15M PRN IV DECREASED GLUCOSE; Start 12/27/16 at 16:30 Glucagon (Glucagen) 1 mg Q15M PRN IM DECREASED GLUCOSE; Start 12/27/16 at 16:30 Glucose (Glutose) 15 gm Q15M PRN BUCCAL DECREASED GLUCOSE; Start 12/27/16 at 16 :30 Lactulose 100 ml 100 ml Q6 [place] Last administered on 12/31/16 06:07; Admin Dose 100 ML; Start 12/28/16 at 15:00 Fentanyl 100 ml @ 5 mls/hr TITRATE IV ; Start 12/28/16 at 15:00 Propofol (Diprivan) 100 ml @ 1.551 mls/ hr Q12H IV Last administered on 14:21; Admin Dose 2.482 MLS/HR; Start 12/28/16 at 15:00 Tobramycin Sulfate 1 drop 1 drop QID BOTH EYES Last administered on 12/31/16 08 :12; Admin Dose 1 DROP; Start 12/29/16 at 13:00; Stop 01/05/17 at 12:59 Sodium Chloride (NS) 1,000 ml @ 75 mls/hr [id number] IV Last administered on 00:41; Admin Dose 75 MLS/HR; Start 12/30/16 at 09:30 MELL GOODRICH Dec 31, 2016 09:30
[2016-12-31 09:42] LABS: ADD SCAN DIFF NO
[2016-12-31 09:43] LABS: ABNORMAL IP MESSAGE 1; BASOPHILS % 0.5 % (0.0-2.0); EOSINOPHILS # 0.1 10^3/ul (0.0-0.5); EOSINOPHILS % 1.3 % (0.0-7.0); HEMATOCRIT 29.1 % (37.0-47.0); HEMOGLOBIN 9.7 g/dl (12.0-16.0); LYMPHOCYTES # 0.6 10^3/ul (0.8-2.9); MEAN CORPUSCULAR HEMOGLOBIN 31.6 pg (29.0-33.0); MEAN CORPUSCULAR HGB CONC 33.3 g/dl (32.0-37.0); MEAN CORPUSCULAR VOLUME 94.8 fl (82.0-101.0); MEAN PLATELET VOLUME 10.7 fl (7.4-10.4); MONOCYTE # 0.6 10^3/ul (0.3-0.9); MONOCYTES % 9.8 % (0.0-11.0); NEUTROPHILS % 78.9 % (39.0-77.0); PLATELET COUNT 58 10^3/UL (140-415); RED BLOOD COUNT 3.07 10^6/ul (4.20-5.40); RED CELL DISTRIBUTION WIDTH 17.8 % (11.5-14.5); WHITE BLOOD COUNT 6.3 10^3/ul (4.8-10.8)
[2016-12-31 09:55] LABS: POTASSIUM 3.3 mmol/L (3.5-5.1)
[2016-12-31 09:58] LABS: CREATININE 0.95 mg/dl (0.44-1.00)
--- NOTE | 2016-12-31 10:43 | PN ---
Date/Time of Note Date/Time of Note DATE: 12/31/16 TIME: 10:30 Assessment/Plan VTE Prophylaxis VTE Prophylaxis Intervention: SCD's Lines/Catheters IV Catheter Type (from Nrs): Central Line Central line still needed: Yes Urinary Cath still in place: Yes Reason Cath still needed: other (indicate) Assessment/Plan Chief Complaint/Hosp Course ASSESSMENT AND PLAN: 1. Upper gastrointestinal bleed. Gastroenterology has been consulted. The patient has been placed on IV octreotide and IV Protonix. Status post upper endoscopy and finding of bleeding esophageal varices, s/p band ligation x 4 and oozing of severe portal hypertensive gastropathy, unable to perform banding as the oozing of blood involves the whole stomach. Continue aggressive medical management via octreotide and Protonix No NG tube / insertion of NG tube may displace the bands on the varices and lead to massive variceal bleeding. As per flour mixer will hold off on EGD for today as patient's h/h increased appropriately after transfusion , Also risks of repeating the EGD with patient's unstable hemodynamically is high. We will perform EGD only if patient develops e/o overt GIB 2. Severe metabolic acidosis, status post bicarbonate drip. Pulmonology has been consulted. 3. Hyponatremia. Continue IV fluid. 4. History of atrial fibrillation. Cardiology has been consulted. Continue amiodarone, at this time, we will hold blood pressure since the hypotension. 5. Sepsis , The patient has been started on Zosyn and vancomycin, IV fluid. Stable 6. Anemia, likely secondary to GI bleed status post transfusion packed red blood cell. H&H is more stable at this time, continue to monitor hemoglobin and hematocrit. 7. Dyslipidemia. Restart statin when patient is able to tolerate p.o. intake. 8. Diabetes mellitus. Place the patient on insulin sliding scale. Hold metformin at this time secondary to lactic acidosis. 9. Acute respiratory failure, extubated on 12/30/2016, continue oxygen via nasal cannula and breathing treatment 10. History of cirrhosis, continue to monitor LFTs 11. Thrombocytopenia, likely secondary to #10, continue to monitor 12. Elevated ammonia level, continue lactulose, no evidence of encephalopathy at this time, follow-up ammonia level in a.m. For deep venous thrombosis prophylaxis, on sequential compression devices, refrain from using any pharmacologic DVT prophylaxis secondary to gastrointestinal bleed. Critical time spent 45 minutes poor prognosis Problems: Subjective 24 Hr Interval Summary Free Text/Dictation Extubated on 12/29/2016 Upper endoscopy was deferred as per flour mixer secondary to hemoglobin hematocrit has been stable Patient complains of having moderate abdominal discomfort No hematemesis Has delay swallowed during speech eval,/swallow eval Exam/Review of Systems Vital Signs Vitals Vital Signs Date Time Temp Pulse Resp B/P Pulse Ox O2 Delivery O2 Flow Rate FiO2 12/31/16 10:00 59 20 138/66 98 Nasal Cannula 3.0 12/31/16 07:30 97.9 12/30/16 11:30 30 Intake and Output 12/30/16 12/30/16 12/31/16 15:00 23:00 07:00 Intake Total 915 ml 500 ml 995 ml Output Total 225 ml 265 ml 210 ml Balance 690 ml 235 ml 785 ml Exam General: The patient is well-developed, Not in acute distress. HEENT: Atraumatic, normocephalic. The pupils are equal and round . Neck: Supple with full range of motion. Chest: Normal expansion of the thorax during inspiration Lungs: Clear to auscultation bilaterally Heart: Normal S1-S2, Regular rhythm and rate. Abdomen: Soft , nontender, nondistended , bowel sounds are present. Umbilical hernia 44 cm Extremities: Normal to inspection, no edema no cyanosis Neurologic: Normal mental status,The patient is awake, alert and oriented . Results Result Diagram: 12/31/16 0919 12/31/16 0919 Results 24 hrs Laboratory Tests Test 12/30/16 11:15 12/30/16 12:49 12/30/16 18:00 12/30/16 18:26 Blood Gas Specimen Source Blood arterial Arterial Blood Date Drawn 12/30/2016 11:20:11 AM Arterial Blood pH (Temp corrected) 7.582 *H Arterial Blood pCO2 (Temp correct) 28.8 L Arterial Blood pO2 (Temp corrected) 99.5 H Arterial Blood HCO3 26.5 H Arterial Blood Base Excess 5.0 H Arterial Blood Oxygen Saturation 97.2 Mike Test ACCEPTAB Arterial Blood Gas Puncture Site Right Radial Arterial Blood Carboxyhemoglobin 0.3 Arterial Blood Methemoglobin 0.3 Blood Gas A-a O2 Differential 80.6 H Oxyhemoglobin Percent 96.6 Total Hemoglobin 10.9 L Blood Gas Temperature 37.0 Blood Gas Actual Respiration Rate 20 Blood Gas Modality VENT - CPAP FiO2 30.0 Blood Gas Low PEEP Setting 5.0 Blood Gas Pressure Support 10 Blood Gas Critical Value Read Back Y AGUS DONOVAN Blood Gas Notified Whom JLD Blood Gas Notified Time 12/30/2016 11:31:09 AM Bedside Glucose 137 139 Lactic Acid Level 1.5 Test 12/30/16 21:06 12/30/16 22:20 12/31/16 01:23 12/31/16 06:05 Bedside Glucose 125 125 119 Hemoglobin 9.6 L Hematocrit 28.0 L Test 12/31/16 08:48 12/31/16 09:19 Bedside Glucose 141 White Blood Count 6.3 Red Blood Count 3.07 L Hemoglobin 9.7 L Hematocrit 29.1 L Mean Corpuscular Volume 94.8 Mean Corpuscular Hemoglobin 31.6 Mean Corpuscular Hemoglobin Concent 33.3 Red Cell Distribution Width 17.8 H Platelet Count 58 L Mean Platelet Volume 10.7 H Neutrophils % 78.9 H Lymphocytes % 9.0 L Monocytes % 9.8 Eosinophils % 1.3 Basophils % 0.5 Nucleated Red Blood Cells % 0.0 Neutrophils # 5.0 Lymphocytes # 0.6 L Monocytes # 0.6 Eosinophils # 0.1 Basophils # 0.0 Nucleated Red Blood Cells # 0.0 Sodium Level 138 Potassium Level 3.3 L Chloride Level 109 Carbon Dioxide Level 26 Anion Gap 6 L Blood Urea Nitrogen 28 H Creatinine 0.95 Glucose Level 148 Calcium Level 7.0 L Ammonia 31 H Medications Medications Current Medications Pantoprazole/ Sodium Chloride (Protonix Iv/NS) 100 ml @ 10 mls/hr Q10H IV Last administered on 12/31/16 06:06; Admin Dose 10 MLS/HR; Start 12/27/16 at 12: 00 Ondansetron HCl (Zofran Inj) 4 mg Q6H PRN IV NAUSEA AND/OR VOMITING Last administered on 12/31/16 09:52; Admin Dose 4 MG; Start 12/27/16 at 12:00 Acetaminophen (Tylenol Tab) 650 mg Q6H PRN PO PAIN LEVEL 1-3 OR FEVER; Start at 12:00 Acetaminophen (Tylenol Supp) 650 mg Q4H PRN [place] PAIN LEVEL 1-3 OR FEVER; Start 12/27/16 at 12:00 Acetaminophen/ Hydrocodone Bitart ([place] (5/325)) 1 tab Q6H PRN PO PAIN LEVEL 4 -6; Start 12/27/16 at 12:00 Morphine Sulfate (morphine) 1 mg Q4H PRN IV PAIN LEVEL 7-10 Last administered on 12/31/16 08:12; Admin Dose 1 MG; Start 12/27/16 at 12:00 Docusate Sodium (Colace) 100 mg Q12H PRN PO CONSTIPATION; Start 12/27/16 at 12: 00 Bisacodyl 10 mg 10 mg DAILY PRN [place] CONSTIPATION; Start 12/27/16 at 12:00 Octreotide Acetate 1 mg/ Sodium Chloride 100 ml @ 5 mls/hr Q20H IV Last administered on 12/30/16 20:31; Admin Dose 5 MLS/HR; Start 12/27/16 at 12:30 Piperacillin Sod/ Tazobactam Sod (Zosyn 2.25gm/ 50ml (Pmx)) 50 ml @ 200 mls/hr Q6 IVPB Last administered on 12/31/16 06:06; Admin Dose 200 MLS/HR; Start 12/27 at 16:00 Insulin Aspart (Novolog Insulin Pen) NOVOLOG *MILD* ALGORI... Q4 SC Last administered on 12/31/16 08:54; Admin Dose 1 UNIT; Start 12/27/16 at 17:00 Miscellaneous Information 1 ea NOTE XX ; Start 12/27/16 at 16:30 Glucose (Glutose) 15 gm Q15M PRN PO DECREASED GLUCOSE; Start 12/27/16 at 16:30 Glucose (Glutose) 22.5 gm Q15M PRN PO DECREASED GLUCOSE; Start 12/27/16 at 16: 30 Dextrose (D50w Syringe) 25 ml Q15M PRN IV DECREASED GLUCOSE; Start 12/27/16 at 16:30 Dextrose (D50w Syringe) 50 ml Q15M PRN IV DECREASED GLUCOSE; Start 12/27/16 at 16:30 Glucagon (Glucagen) 1 mg Q15M PRN IM DECREASED GLUCOSE; Start 12/27/16 at 16:30 Glucose (Glutose) 15 gm Q15M PRN BUCCAL DECREASED GLUCOSE; Start 12/27/16 at 16 :30 Lactulose 100 ml 100 ml Q6 [place] Last administered on 12/31/16 06:07; Admin Dose 100 ML; Start 12/28/16 at 15:00 Fentanyl 100 ml @ 5 mls/hr TITRATE IV ; Start 12/28/16 at 15:00 Propofol (Diprivan) 100 ml @ 1.551 mls/ hr Q12H IV Last administered on 14:21; Admin Dose 2.482 MLS/HR; Start 12/28/16 at 15:00 Tobramycin Sulfate 1 drop 1 drop QID BOTH EYES Last administered on 12/31/16 08 :12; Admin Dose 1 DROP; Start 12/29/16 at 13:00; Stop 01/05/17 at 12:59 Sodium Chloride 1,000 ml @ 75 mls/hr [id number] IV Last administered on 12/31/16 00:41; Admin Dose 75 MLS/HR; Start 12/30/16 at 09:30 Potassium Chloride/Sodium Chloride (KCl/NS) 110 ml @ 55 mls/hr ONCE ONCE IVPB ; Start 12/31/16 at 10:30; Stop 12/31/16 at 12:29; Status OZIEL SHARP MD Dec 31, 2016 10:43
[2016-12-31] MEDS ORDERED: POTASSIUM CHLORIDE 20 MEQ in SOD CHLORIDE 0.9% 100 ML IVPB ONE (11:00)
[2016-12-31] MEDS: OCTREOTIDE 1 MG in SOD CHLORIDE 0.9% 95 ML IV SCH (14:34)
--- NOTE | 2016-12-31 14:46 | PN ---
Date/Time of Note Date/Time of Note DATE: 12/31/16 TIME: 14:36 Assessment/Plan VTE Prophylaxis VTE Prophylaxis Intervention: SCD's Lines/Catheters [facility]from [facility]): Central Line Central line still needed: Yes Urinary Cath still in place: Yes Reason Cath still needed: urinary retention Assessment/Plan Chief Complaint/Hosp Course Problems: Assessment/Plan Assessment * Upper GI bleed * S/P EGD with band ligation x 4 on 12-27-16 of bleeding esophageal varices. She is also bleeding from portal hypertensive gastropathy but no hemostasis is done as the bleeding from this is diffuse and involves the whole stomach. * Anemia * History of atrial fibrillation. * Dyslipidemia. * Diabetes mellitus. * * Plan * may have ice chips pending swallow evaluation * D/C octreotide drip * Continue monitoring Hemoglobin and hematocrit q 6 Subjective 24 Hr Interval Summary Free Text/Dictation * course reviewed with nurse * patient seen and examined * denies hematemesis,nor vomiting,nor melena * EGD 12/27/2016 * 1. bleeding esophageal varices, s/p band ligation x 4 * 2. oozing of severe portal hypertensive gastropathy, unable to perform banding as the oozing of blood involves the whole stomach. * latest hemoglobin 9.7 Exam/Review of Systems Vital Signs Vitals Vital Signs Date Time Temp Pulse Resp B/P Pulse Ox O2 Delivery O2 Flow Rate FiO2 12/31/16 12:00 56 12/31/16 11:00 13 123/46 100 Nasal Cannula 3.0 12/31/16 07:30 97.9 12/30/16 11:30 30 Intake and Output 12/30/16 12/30/16 12/31/16 15:00 23:00 07:00 Intake Total 915 ml 500 ml 995 ml Output Total 225 ml 265 ml 210 ml Balance 690 ml 235 ml 785 ml Exam Constitutional: alert Psych: nl mood/affect Neck: supple Respiratory: clear to auscultation, normal air movement Cardiovascular: nl pulses, regular rate and rhythm Gastrointestinal: bowel sounds, distended, non-tender, soft Musculoskeletal: nl extremities to inspection Results Result Diagram: 12/31/16 0919 12/31/16 0919 Results 24 hrs Laboratory Tests Test 12/30/16 18:00 12/30/16 18:26 12/30/16 21:06 12/30/16 22:20 Bedside Glucose 139 125 Lactic Acid Level 1.5 Hemoglobin 9.6 L Hematocrit 28.0 L Test 12/31/16 01:23 12/31/16 06:05 12/31/16 08:48 12/31/16 09:19 Bedside Glucose 125 119 141 White Blood Count 6.3 Red Blood Count 3.07 L Hemoglobin 9.7 L Hematocrit 29.1 L Mean Corpuscular Volume 94.8 Mean Corpuscular Hemoglobin 31.6 Mean Corpuscular Hemoglobin Concent 33.3 Red Cell Distribution Width 17.8 H Platelet Count 58 L Mean Platelet Volume 10.7 H Neutrophils % 78.9 H Lymphocytes % 9.0 L Monocytes % 9.8 Eosinophils % 1.3 Basophils % 0.5 Nucleated Red Blood Cells % 0.0 Neutrophils # 5.0 Lymphocytes # 0.6 L Monocytes # 0.6 Eosinophils # 0.1 Basophils # 0.0 Nucleated Red Blood Cells # 0.0 Sodium Level 138 Potassium Level 3.3 L Chloride Level 109 Carbon Dioxide Level 26 Anion Gap 6 L Blood Urea Nitrogen 28 H Creatinine 0.95 Glucose Level 148 Calcium Level 7.0 L Ammonia 31 H Test 12/31/16 13:20 Bedside Glucose 119 Medications Medications Current Medications Pantoprazole/ Sodium Chloride (Protonix Iv/NS) 100 ml @ 10 mls/hr Q10H IV Last administered on 12/31/16 06:06; Admin Dose 10 MLS/HR; Start 12/27/16 at 12: 00 Ondansetron HCl (Zofran Inj) 4 mg Q6H PRN IV NAUSEA AND/OR VOMITING Last administered on 12/31/16 09:52; Admin Dose 4 MG; Start 12/27/16 at 12:00 Acetaminophen (Tylenol Tab) 650 mg Q6H PRN PO PAIN LEVEL 1-3 OR FEVER; Start at 12:00 Acetaminophen (Tylenol Supp) 650 mg Q4H PRN [place] PAIN LEVEL 1-3 OR FEVER; Start 12/27/16 at 12:00 Acetaminophen/ Hydrocodone Bitart ([place] (5/325)) 1 tab Q6H PRN PO PAIN LEVEL 4 -6; Start 12/27/16 at 12:00 Morphine Sulfate (morphine) 1 mg Q4H PRN IV PAIN LEVEL 7-10 Last administered on 12/31/16 08:12; Admin Dose 1 MG; Start 12/27/16 at 12:00 Docusate Sodium (Colace) 100 mg Q12H PRN PO CONSTIPATION; Start 12/27/16 at 12: 00 Bisacodyl 10 mg 10 mg DAILY PRN [place] CONSTIPATION; Start 12/27/16 at 12:00 Octreotide Acetate 1 mg/ Sodium Chloride 100 ml @ 5 mls/hr Q20H IV Last administered on 12/30/16 20:31; Admin Dose 5 MLS/HR; Start 12/27/16 at 12:30 Piperacillin Sod/ Tazobactam Sod (Zosyn 2.25gm/ 50ml (Pmx)) 50 ml @ 200 mls/hr Q6 IVPB Last administered on 12/31/16 06:06; Admin Dose 200 MLS/HR; Start 12/27 at 16:00 Insulin Aspart (Novolog Insulin Pen) NOVOLOG *MILD* ALGORI... Q4 SC Last administered on 12/31/16 08:54; Admin Dose 1 UNIT; Start 12/27/16 at 17:00 Miscellaneous Information 1 ea NOTE XX ; Start 12/27/16 at 16:30 Glucose (Glutose) 15 gm Q15M PRN PO DECREASED GLUCOSE; Start 12/27/16 at 16:30 Glucose (Glutose) 22.5 gm Q15M PRN PO DECREASED GLUCOSE; Start 12/27/16 at 16: 30 Dextrose (D50w Syringe) 25 ml Q15M PRN IV DECREASED GLUCOSE; Start 12/27/16 at 16:30 Dextrose (D50w Syringe) 50 ml Q15M PRN IV DECREASED GLUCOSE; Start 12/27/16 at 16:30 Glucagon (Glucagen) 1 mg Q15M PRN IM DECREASED GLUCOSE; Start 12/27/16 at 16:30 Glucose (Glutose) 15 gm Q15M PRN BUCCAL DECREASED GLUCOSE; Start 12/27/16 at 16 :30 Lactulose (Lactulose Enema) 100 ml Q6 RI Last administered on 12/31/16 06:07; Admin Dose 100 ML; Start 12/28/16 at 15:00 Tobramycin Sulfate 1 drop 1 drop QID BOTH EYES Last administered on 12/31/16 13 :22; Admin Dose 1 DROP; Start 4/2/17 at 13:00; Stop 01/05/17 at 12:59 Sodium Chloride (NS) 1,000 ml @ 75 mls/hr [id number] IV Last administered on t 00:41; Admin Dose 75 MLS/HR; Start 12/30/16 at 09:30 POLO CLARKE MD Dec 31, 2016 14:46
--- NOTE | 2016-12-31 14:52 | CONS ---
Date/Time of Note Date/Time of Note DATE: 12/31/16 TIME: 14:51 Assessment/Plan Assessment/Plan Chief Complaint/Hosp Course Assessment: Paroxysmal atrial fibrillation with rapid ventricular response - reverted to sinus rhythm with amiodarone drip, now sinus bradycardia Acute gastrointestinal bleeding with hematemesis - status post EGD with band ligation of esophageal varices 12/27/2016 Esophageal varices Liver cirrhosis Diabetes mellitus Intubated for airway protection - on mechanical ventilation Recommendations: -echocardiogram showed LVEF 65-70% -status post amiodarone drip, discontinued due to bradycardia -holding aspirin due to bleeding -follow up gastroenterology recommendations Problems: Consultation Date/Type/Reason Admit Date/Time Dec 27, 2016 at 10:02 Type of Consultation: Cardiology 24 HR Interval Summary Free Text/Dictation Transferred out of ICU. Hemoglobin stable. Detailed Summary Additional Comments 14 point review of systems without changes. Exam/Review of Systems Vital Signs Vitals Vital Signs Date Time Temp Pulse Resp B/P Pulse Ox O2 Delivery O2 Flow Rate FiO2 12/31/16 12:00 56 12/31/16 11:00 13 123/46 100 Nasal Cannula 3.0 12/31/16 07:30 97.9 12/30/16 11:30 30 Intake and Output 12/30/16 12/30/16 12/31/16 15:00 23:00 07:00 Intake Total 915 ml 500 ml 995 ml Output Total 225 ml 265 ml 210 ml Balance 690 ml 235 ml 785 ml Exam Constitutional: alert, no distress Head: atraumatic, normocephalic Neck: supple Respiratory: clear to auscultation, normal air movement Cardiovascular: irregular rhythm Gastrointestinal: distended, soft Musculoskeletal: nl extremities to inspection Extremities: No clubbing, No edema Neurological: Nl mental status, Nl speech Results Result Diagram: 12/31/1619 12/31/1619 Results 24 hrs Laboratory Tests Test 12/30/16 18:00 12/30/16 18:26 12/30/16 21:06 12/30/16 22:20 Bedside Glucose 139 125 Lactic Acid Level 1.5 Hemoglobin 9.6 L Hematocrit 28.0 L Test 12/31/16 01:23 12/31/16 06:05 12/31/16 08:48 12/31/16 09:19 Bedside Glucose 125 119 141 White Blood Count 6.3 Red Blood Count 3.07 L Hemoglobin 9.7 L Hematocrit 29.1 L Mean Corpuscular Volume 94.8 Mean Corpuscular Hemoglobin 31.6 Mean Corpuscular Hemoglobin Concent 33.3 Red Cell Distribution Width 17.8 H Platelet Count 58 L Mean Platelet Volume 10.7 H Neutrophils % 78.9 H Lymphocytes % 9.0 L Monocytes % 9.8 Eosinophils % 1.3 Basophils % 0.5 Nucleated Red Blood Cells % 0.0 Neutrophils # 5.0 Lymphocytes # 0.6 L Monocytes # 0.6 Eosinophils # 0.1 Basophils # 0.0 Nucleated Red Blood Cells # 0.0 Sodium Level 138 Potassium Level 3.3 L Chloride Level 109 Carbon Dioxide Level 26 Anion Gap 6 L Blood Urea Nitrogen 28 H Creatinine 0.95 Glucose Level 148 Calcium Level 7.0 L Ammonia 31 H Test 12/31/16 13:20 Bedside Glucose 119 Medications Medications Current Medications Pantoprazole/ Sodium Chloride (Protonix Iv/NS) 100 ml @ 10 mls/hr Q10H IV Last administered on 12/31/16 06:06; Admin Dose 10 MLS/HR; Start 12/27/16 at 12: 00 Ondansetron HCl (Zofran Inj) 4 mg Q6H PRN IV NAUSEA AND/OR VOMITING Last administered on 12/31/16 09:52; Admin Dose 4 MG; Start 12/27/16 at 12:00 Acetaminophen (Tylenol Tab) 650 mg Q6H PRN PO PAIN LEVEL 1-3 OR FEVER; Start at 12:00 Acetaminophen (Tylenol Supp) 650 mg Q4H PRN [place] PAIN LEVEL 1-3 OR FEVER; Start 12/27/16 at 12:00 Acetaminophen/ Hydrocodone Bitart ([place] (5/325)) 1 tab Q6H PRN PO PAIN LEVEL 4 -6; Start 12/27/16 at 12:00 Morphine Sulfate (morphine) 1 mg Q4H PRN IV PAIN LEVEL 7-10 Last administered on 12/31/16 08:12; Admin Dose 1 MG; Start 12/27/16 at 12:00 Docusate Sodium (Colace) 100 mg Q12H PRN PO CONSTIPATION; Start 12/27/16 at 12: 00 Bisacodyl 10 mg 10 mg DAILY PRN [place] CONSTIPATION; Start 12/27/16 at 12:00 Octreotide Acetate 1 mg/ Sodium Chloride 100 ml @ 5 mls/hr Q20H IV Last administered on 12/31/16 14:34; Admin Dose 5 MLS/HR; Start 12/27/16 at 12:30 Piperacillin Sod/ Tazobactam Sod (Zosyn 2.25gm/ 50ml (Pmx)) 50 ml @ 200 mls/hr Q6 IVPB Last administered on 12/31/16 14:36; Admin Dose 200 MLS/HR; Start 12/27 at 16:00 Insulin Aspart (Novolog Insulin Pen) NOVOLOG *MILD* ALGORI... Q4 SC Last administered on 12/31/16 08:54; Admin Dose 1 UNIT; Start 12/27/16 at 17:00 Miscellaneous Information 1 ea NOTE XX ; Start 12/27/16 at 16:30 Glucose (Glutose) 15 gm Q15M PRN PO DECREASED GLUCOSE; Start 12/27/16 at 16:30 Glucose (Glutose) 22.5 gm Q15M PRN PO DECREASED GLUCOSE; Start 12/27/16 at 16: 30 Dextrose (D50w Syringe) 25 ml Q15M PRN IV DECREASED GLUCOSE; Start 12/27/16 at 16:30 Dextrose (D50w Syringe) 50 ml Q15M PRN IV DECREASED GLUCOSE; Start 12/27/16 at 16:30 Glucagon (Glucagen) 1 mg Q15M PRN IM DECREASED GLUCOSE; Start 12/27/16 at 16:30 Glucose (Glutose) 15 gm Q15M PRN BUCCAL DECREASED GLUCOSE; Start 12/27/16 at 16 :30 Lactulose (Lactulose Enema) 100 ml Q6 GA Last administered on 12/31/16 06:07; Admin Dose 100 ML; Start 12/28/16 at 15:00 Tobramycin Sulfate 1 drop 1 drop QID BOTH EYES Last administered on 12/31/16 13 :22; Admin Dose 1 DROP; Start 12/29/16 at 13:00; Stop 01/05/17 at 12:59 Sodium Chloride (NS) 1,000 ml @ 75 mls/hr [id number] IV Last administered on 00:41; Admin Dose 75 MLS/HR; Start 12/30/16 at 09:30 PACO JEAN MD Dec 31, 2016 14:52
[2017-01-01] VITALS (12 sets, daily range): BP systolic 120–164; BP diastolic 63–91; PULSE 59–94; RESP 16–20
[2017-01-01] MEDS: PIPER-TAZO 2.25 GM (PMX) 50 ML IVPB SCH ×4 (00:23→17:28)
[2017-01-01] MEDS: LACTULOSE ENEMA 1,000 ML BTL PR SCH ×2 (00:24→05:32)
[2017-01-01] MEDS: morphine 2 MG INJ IV PRN (00:26)
[2017-01-01] MEDS: INSULIN ASPART [NOVOLOG] 3 ML PEN SC SCH ×6 (00:35→21:12)
[2017-01-01] MEDS: SOD CHLORIDE 0.9% 1,000 ML IV SCH ×2 (01:30→09:30)
[2017-01-01] MEDS: PANTOPRAZOLE IV 80 MG in SOD CHLORIDE 0.9% 100 ML IV SCH (03:45)
--- NOTE | 2017-01-01 09:28 | PN ---
Date/Time of Note Date/Time of Note DATE: 01/01/17 TIME: 09:21 Assessment/Plan VTE Prophylaxis VTE Prophylaxis Intervention: SCD's Lines/Catheters [facility]from [facility] Central Line Central line still needed: Yes Urinary Cath still in place: Yes Reason Cath still needed: urinary retention Assessment/Plan Chief Complaint/Hosp Course Problems: Assessment/Plan Upper GI bleed controlled * S/P EGD with band ligation x 4 on 12-27-16 of bleeding esophageal varices. She is also bleeding from portal hypertensive gastropathy but no hemostasis is done as the bleeding from this is diffuse and involves the whole stomach. * Anemia Hemoglobin 10.4 * History of atrial fibrillation. * Dyslipidemia. * Diabetes mellitus Plan * D/C Protonix drip * oral protonix * continue present management Subjective 24 Hr Interval Summary Free Text/Dictation * course reviewed with nurse * patient seen and examined * no hematemesis nor abdominal pain * on pureed diet * latest hemoglobin 10.4 Exam/Review of Systems Vital Signs Vitals Vital Signs Date Time Temp Pulse Resp B/P Pulse Ox O2 Delivery O2 Flow Rate FiO2 01/01/17 08:42 98.0 96 20 138/88 98 12/31/16 21:10 Nasal Cannula 3.0 12/30/16 11:30 30 Intake and Output 12/31/16 12/31/16 01/01/17 15:00 23:00 07:00 Intake Total 270 ml 1320.0 ml Output Total 105 ml 300 ml 300 ml Balance 165 ml -300 ml 1020.0 ml Exam Constitutional: alert Psych: nl mood/affect Neck: supple Respiratory: clear to auscultation, normal air movement Cardiovascular: nl pulses, regular rate and rhythm Gastrointestinal: bowel sounds, non-tender, soft, No rebound or guarding Musculoskeletal: nl extremities to inspection Results Result Diagram: 12/31/1691812/31/16918 Results 24 hrs Laboratory Tests Test 12/31/16 13:20 12/31/16 21:15 01/01/17 00:34 01/01/17 05:51 Bedside Glucose 119 109 110 104 Test 01/01/17 07:46 Bedside Glucose 124 Medications Medications Current Medications Pantoprazole/ Sodium Chloride (Protonix Iv/NS) 100 ml @ 10 mls/hr Q10H IV Last administered on 01/01/17t 03:45; Admin Dose 10 MLS/HR; Start 12/27/16 at 12: 00 Ondansetron HCl (Zofran Inj) 4 mg Q6H PRN IV NAUSEA AND/OR VOMITING Last administered on 12/31/16 09:52; Admin Dose 4 MG; Start 12/27/16 at 12:00 Acetaminophen (Tylenol Tab) 650 mg Q6H PRN PO PAIN LEVEL 1-3 OR FEVER; Start at 12:00 Acetaminophen (Tylenol Supp) 650 mg Q4H PRN [place] PAIN LEVEL 1-3 OR FEVER; Start 12/27/16 at 12:00 Acetaminophen/ Hydrocodone Bitart ([place] (5/325)) 1 tab Q6H PRN PO PAIN LEVEL 4 -6; Start 12/27/16 at 12:00 Morphine Sulfate (morphine) 1 mg Q4H PRN IV PAIN LEVEL 7-10 Last administered on 01/01/17 00:26; Admin Dose 1 MG; Start 12/27/16 at 12:00 Docusate Sodium (Colace) 100 mg Q12H PRN PO CONSTIPATION; Start 12/27/16 at 12: 00 Bisacodyl 10 mg 10 mg DAILY PRN [place] CONSTIPATION; Start 12/27/16 at 12:00 Piperacillin Sod/ Tazobactam Sod (Zosyn 2.25gm/ 50ml (Pmx)) 50 ml @ 200 mls/hr Q6 IVPB Last administered on 01/01/17 05:32; Admin Dose 200 MLS/HR; Start 12/27 at 16:00 Insulin Aspart (Novolog Insulin Pen) NOVOLOG *MILD* ALGORI... Q4 SC Last administered on 12/31/16 08:54; Admin Dose 1 UNIT; Start 12/27/16 at 17:00 Miscellaneous Information 1 ea NOTE XX ; Start 12/27/16 at 16:30 Glucose (Glutose) 15 gm Q15M PRN PO DECREASED GLUCOSE; Start 12/27/16 at 16:30 Glucose (Glutose) 22.5 gm Q15M PRN PO DECREASED GLUCOSE; Start 12/27/16 at 16: 30 Dextrose (D50w Syringe) 25 ml Q15M PRN IV DECREASED GLUCOSE; Start 12/27/16 at 16:30 Dextrose (D50w Syringe) 50 ml Q15M PRN IV DECREASED GLUCOSE; Start 12/27/16 at 16:30 Glucagon (Glucagen) 1 mg Q15M PRN IM DECREASED GLUCOSE; Start 12/27/16 at 16:30 Glucose (Glutose) 15 gm Q15M PRN BUCCAL DECREASED GLUCOSE; Start 12/27/16 at 16 :30 Lactulose (Lactulose Enema) 100 ml Q6 [place] Last administered on 01/01/17 05:32; Admin Dose 100 ML; Start 12/28/16 at 15:00 Tobramycin Sulfate 1 drop 1 drop QID BOTH EYES Last administered on 12/31/16 21 :12; Admin Dose 1 DROP; Start 12/29/16 at 13:00; Stop 01/05/17 at 12:59 Sodium Chloride (NS) 1,000 ml @ 75 mls/hr [id number] IV Last administered on 15:11; Admin Dose 75 MLS/HR; Start 12/30/16 at 09:30 POLO CLARKE MD Jan 01, 2017 09:28
[2017-01-01] MEDS: TOBRAMYCIN 0.3% 5 ML OPH BOTH EYES SCH ×4 (09:37→21:04)
[2017-01-01 09:48] LABS: ADD SCAN DIFF NO
[2017-01-01 09:52] LABS: ABNORMAL IP MESSAGE 1; BASOPHILS % 0.4 % (0.0-2.0); EOSINOPHILS # 0.2 10^3/ul (0.0-0.5); EOSINOPHILS % 2.4 % (0.0-7.0); HEMATOCRIT 30.8 % (37.0-47.0); HEMOGLOBIN 10.4 g/dl (12.0-16.0); LYMPHOCYTES # 0.6 10^3/ul (0.8-2.9); LYMPHOCYTES % 5.9 % (15.0-51.0); MEAN CORPUSCULAR HEMOGLOBIN 32.4 pg (29.0-33.0); MEAN CORPUSCULAR HGB CONC 33.8 g/dl (32.0-37.0); MEAN PLATELET VOLUME 10.2 fl (7.4-10.4); MONOCYTE # 0.9 10^3/ul (0.3-0.9); MONOCYTES % 9.1 % (0.0-11.0); NEUTROPHIL # 7.8 10^3/ul (1.6-7.5); NEUTROPHILS % 81.5 % (39.0-77.0); PLATELET COUNT 67 10^3/UL (140-415); RED BLOOD COUNT 3.21 10^6/ul (4.20-5.40); RED CELL DISTRIBUTION WIDTH 18.2 % (11.5-14.5); WHITE BLOOD COUNT 9.6 10^3/ul (4.8-10.8)
[2017-01-01 10:06] LABS: POTASSIUM 3.3 mmol/L (3.5-5.1)
[2017-01-01 10:08] LABS: CREATININE 0.84 mg/dl (0.44-1.00)
[2017-01-01 10:09] LABS: CALCIUM 7.4 mg/dl (8.4-10.2); MAGNESIUM 2.2 mg/dl (1.7-2.5)
[2017-01-01] MEDS: LACTULOSE 30ML CUP PO SCH ×2 (16:12→22:03)
[2017-01-01] MEDS: PANTOPRAZOLE (EC) 40 MG TAB PO SCH (17:30)
--- NOTE | 2017-01-01 17:46 | PN ---
Date/Time of Note Date/Time of Note DATE: 01/01/17 TIME: 17:43 Assessment/Plan VTE Prophylaxis VTE Prophylaxis Intervention: SCD's Lines/Catheters IV Catheter Type (from Nrs): Central Line Central line still needed: Yes Urinary Cath still in place: Yes Reason Cath still needed: other (indicate) Assessment/Plan Chief Complaint/Hosp Course ASSESSMENT AND PLAN: 1. Upper gastrointestinal bleed. Gastroenterology has been consulted. The patient has been placed on IV octreotide and IV Protonix. Status post upper endoscopy and finding of bleeding esophageal varices, s/p band ligation x 4 and oozing of severe portal hypertensive gastropathy, unable to perform banding as the oozing of blood involves the whole stomach. Continue aggressive medical management via octreotide and Protonix No NG tube / insertion of NG tube may displace the bands on the varices and lead to massive variceal bleeding. As per loan reviewer will hold off on EGD for today as patient's h/h increased appropriately after transfusion , Also risks of repeating the EGD with patient's unstable hemodynamically is high. We will perform EGD only if patient develops e/o overt GIB 2. Severe metabolic acidosis, status post bicarbonate drip. Pulmonology has been consulted. 3. Hyponatremia. Continue IV fluid. 4. History of atrial fibrillation. Cardiology has been consulted. Continue amiodarone, at this time, we will hold blood pressure since the hypotension. 5. Sepsis , The patient has been started on Zosyn and vancomycin, IV fluid. Stable 6. Anemia, likely secondary to GI bleed status post transfusion packed red blood cell. H&H is more stable at this time, continue to monitor hemoglobin and hematocrit. 7. Dyslipidemia. Restart statin when patient is able to tolerate p.o. intake. 8. Diabetes mellitus. Place the patient on insulin sliding scale. Hold metformin at this time secondary to lactic acidosis. 9. Acute respiratory failure, extubated on 12/30/2016, continue oxygen via nasal cannula and breathing treatment 10. History of cirrhosis, continue to monitor LFTs 11. Thrombocytopenia, likely secondary to #10, continue to monitor 12. Elevated ammonia level, continue lactulose, no evidence of encephalopathy at this time, follow-up ammonia level in a.m. For deep venous thrombosis prophylaxis, on sequential compression devices, refrain from using any pharmacologic DVT prophylaxis secondary to gastrointestinal bleed. Plan to discharge to [facility] facility versus acute rehab when cleared by loan reviewer poor prognosis Problems: Subjective 24 Hr Interval Summary Free Text/Dictation Patient continues to complain of having abdominal discomfort and generalized weakness Complains of having shortness of breath Minimal p.o. intake consuming 15-25% of her meals Exam/Review of Systems Vital Signs Vitals Vital Signs Date Time Temp Pulse Resp B/P Pulse Ox O2 Delivery O2 Flow Rate FiO2 01/01/17 16:27 73 01/01/17 16:22 97.8 18 124/65 98 01/01/17 08:15 Nasal Cannula 3.0 12/30/16 11:30 30 Intake and Output 12/31/16 12/31/16 01/01/17 15:00 23:00 07:00 Intake Total 270 ml 1320.0 ml Output Total 105 ml 300 ml 300 ml Balance 165 ml -300 ml 1020.0 ml Exam General: The patient is underweight, Not in acute distress. HEENT: Atraumatic, normocephalic. The pupils are equal and round . Neck: Supple with full range of motion. Chest: Normal Lungs: Bilateral upper lung wheezing Heart: Normal S1-S2, Regular rhythm and rate. Abdomen: Soft , nontender, nondistended , bowel sounds are present. Umbilical hernia Extremities: Normal to inspection, no edema no cyanosis Neurologic: The patient is awake, alert Results Result Diagram: 01/01/17 0935 01/01/17 0935 Results 24 hrs Laboratory Tests Test 12/31/16 21:15 01/01/17 00:34 01/01/17 05:51 01/01/17 07:46 Bedside Glucose 109 110 104 124 Test 01/01/17 09:35 01/01/17 11:46 01/01/17 17:26 White Blood Count 9.6 # Red Blood Count 3.21 L Hemoglobin 10.4 L Hematocrit 30.8 L Mean Corpuscular Volume 96.0 Mean Corpuscular Hemoglobin 32.4 Mean Corpuscular Hemoglobin Concent 33.8 Red Cell Distribution Width 18.2 H Platelet Count 67 L Mean Platelet Volume 10.2 Neutrophils % 81.5 H Lymphocytes % 5.9 L Monocytes % 9.1 Eosinophils % 2.4 Basophils % 0.4 Nucleated Red Blood Cells % 0.0 Neutrophils # 7.8 H Lymphocytes # 0.6 L Monocytes # 0.9 Eosinophils # 0.2 Basophils # 0.0 Nucleated Red Blood Cells # 0.0 Sodium Level 139 Potassium Level 3.3 L Chloride Level 106 Carbon Dioxide Level 22 Anion Gap 14 # Blood Urea Nitrogen 29 H Creatinine 0.84 Glucose Level 182 Calcium Level 7.4 L Magnesium Level 2.2 Ammonia 21 Bedside Glucose 180 148 Medications Medications Current Medications Ondansetron HCl (Zofran Inj) 4 mg Q6H PRN IV NAUSEA AND/OR VOMITING Last administered on 12/31/16 09:52; Admin Dose 4 MG; Start 12/27/16 at 12:00 Acetaminophen (Tylenol Tab) 650 mg Q6H PRN PO PAIN LEVEL 1-3 OR FEVER; Start at 12:00 Acetaminophen (Tylenol Supp) 650 mg Q4H PRN [place] PAIN LEVEL 1-3 OR FEVER; Start 12/27/16 at 12:00 Acetaminophen/ Hydrocodone Bitart ([place] (5/325)) 1 tab Q6H PRN PO PAIN LEVEL 4 -6; Start 12/27/16 at 12:00 Morphine Sulfate (morphine) 1 mg Q4H PRN IV PAIN LEVEL 7-10 Last administered on 01/01/17 00:26; Admin Dose 1 MG; Start 12/27/16 at 12:00 Docusate Sodium (Colace) 100 mg Q12H PRN PO CONSTIPATION; Start 12/27/16 at 12: 00 Bisacodyl 10 mg 10 mg DAILY PRN [place] CONSTIPATION; Start 12/27/16 at 12:00 Piperacillin Sod/ Tazobactam Sod (Zosyn 2.25gm/ 50ml (Pmx)) 50 ml @ 200 mls/hr Q6 IVPB Last administered on 01/01/17 17:28; Admin Dose 200 MLS/HR; Start 12/27 at 16:00 Miscellaneous Information 1 ea NOTE XX ; Start 12/27/16 at 16:30 Glucose (Glutose) 15 gm Q15M PRN PO DECREASED GLUCOSE; Start 12/27/16 at 16:30 Glucose (Glutose) 22.5 gm Q15M PRN PO DECREASED GLUCOSE; Start 12/27/16 at 16: 30 Dextrose (D50w Syringe) 25 ml Q15M PRN IV DECREASED GLUCOSE; Start 12/27/16 at 16:30 Dextrose (D50w Syringe) 50 ml Q15M PRN IV DECREASED GLUCOSE; Start 12/27/16 at 16:30 Glucagon (Glucagen) 1 mg Q15M PRN IM DECREASED GLUCOSE; Start 12/27/16 at 16:30 Glucose (Glutose) 15 gm Q15M PRN BUCCAL DECREASED GLUCOSE; Start 12/27/16 at 16 :30 Tobramycin Sulfate (Tobrex 0.3% Oph Drop) 1 drop QID BOTH EYES Last administered on 01/01/17 16:12; Admin Dose 1 DROP; Start 12/29/16 at 13:00; Stop 01/05/17 at 12:59 Pantoprazole (Protonix Tab) 40 mg BID@06,18 PO Last administered on 01/01/17 17 :30; Admin Dose 40 MG; Start 01/01/17 at 18:00 Lactulose (Enulose) 20 gm Q8 PO Last administered on 01/01/17 16:12; Admin Dose 20 GM; Start 01/01/17 at 14:00 OZIEL HAMPTON MD Jan 01, 2017 17:45
[2017-01-01] MEDS: ALBUTEROL/IPRATROPIUM (NEB) 3 ML AMP NEB PRN (18:43)
[2017-01-02] VITALS (12 sets, daily range): BP systolic 114–147; BP diastolic 55–69; PULSE 58–88; RESP 16–20
[2017-01-02] MEDS: PIPER-TAZO 2.25 GM (PMX) 50 ML IVPB SCH ×5 (00:33→23:08)
[2017-01-02] MEDS: ALBUTEROL/IPRATROPIUM (NEB) 3 ML AMP NEB PRN (03:50)
[2017-01-02] MEDS: PANTOPRAZOLE (EC) 40 MG TAB PO SCH ×2 (05:34→17:33)
[2017-01-02] MEDS: LACTULOSE 30ML CUP PO SCH ×3 (05:34→21:09)
[2017-01-02] MEDS: Insulin NOVOLOG SS MILD Algorithm (SS with meals and bedtime) SC SCH ×4 (07:30→21:00)
[2017-01-02] MEDS: TOBRAMYCIN 0.3% 5 ML OPH BOTH EYES SCH ×4 (09:33→23:02)
[2017-01-02 10:22] LABS: ADD SCAN DIFF NO
[2017-01-02 10:24] LABS: ABNORMAL IP MESSAGE 1; BASOPHILS % 0.2 % (0.0-2.0); EOSINOPHILS # 0.1 10^3/ul (0.0-0.5); EOSINOPHILS % 0.3 % (0.0-7.0); HEMATOCRIT 34.6 % (37.0-47.0); HEMOGLOBIN 11.4 g/dl (12.0-16.0); LYMPHOCYTES # 0.7 10^3/ul (0.8-2.9); LYMPHOCYTES % 4.7 % (15.0-51.0); MEAN CORPUSCULAR HEMOGLOBIN 31.1 pg (29.0-33.0); MEAN CORPUSCULAR HGB CONC 32.9 g/dl (32.0-37.0); MEAN CORPUSCULAR VOLUME 94.5 fl (82.0-101.0); MEAN PLATELET VOLUME 9.3 fl (7.4-10.4); MONOCYTE # 1.5 10^3/ul (0.3-0.9); MONOCYTES % 9.8 % (0.0-11.0); NEUTROPHIL # 12.8 10^3/ul (1.6-7.5); NEUTROPHILS % 83.4 % (39.0-77.0); PLATELET COUNT 88 10^3/UL (140-415); RED BLOOD COUNT 3.66 10^6/ul (4.20-5.40); RED CELL DISTRIBUTION WIDTH 19.1 % (11.5-14.5); WHITE BLOOD COUNT 15.4 10^3/ul (4.8-10.8)
[2017-01-02 10:40] LABS: CREATININE 0.91 mg/dl (0.44-1.00)
[2017-01-02 10:41] LABS: CALCIUM 8.1 mg/dl (8.4-10.2)
[2017-01-02 10:53] LABS: POTASSIUM 2.9 mmol/L (3.5-5.1)
--- NOTE | 2017-01-02 12:40 | CONS ---
Date/Time of Note Date/Time of Note DATE: 01/02/17 TIME: 12:39 Consult Date/Type/Reason Admit Date/Time Dec 27, 2016 at 10:02 Type of Consultation: pulmonary Subjective Still confused appears comfortable at rest Occasional cough Objective Vital Signs Date Time Temp Pulse Resp B/P Pulse Ox O2 Delivery O2 Flow Rate FiO2 01/02/17 12:00 88 01/02/17 11:57 98.0 19 147/69 97 01/02/17 04:01 Nasal Cannula 2.0 12/30/16 11:30 30 Intake and Output 01/01/17 01/01/17 01/02/17 15:00 23:00 07:00 Intake Total 300 ml 340 ml Output Total 300 ml 300 ml Balance 0 ml 40 ml Exam GENERAL: Chronically ill appearing lady, nasal cannula oxygen VITAL SIGNS: As above NECK: Supple. No JVD or lymphadenopathy. CARDIAC: S1, S2, no added sounds or murmurs. CHEST: Diminished air entry bilaterally. ABDOMEN: Soft, nontender. No guarding or rebound. EXTREMITIES: No cyanosis, clubbing, or edema. NEUROLOGIC: Generalized weakness. Results/Medications Result Diagram: 01/02/17 1011 01/02/17 1011 Results 24 hrs Laboratory Tests Test 01/01/17 17:26 01/01/17 21:08 01/02/17 02:15 01/02/17 07:51 Bedside Glucose 148 148 120 131 Test 01/02/17 10:11 01/02/17 11:23 White Blood Count 15.4 #H Red Blood Count 3.66 L Hemoglobin 11.4 L Hematocrit 34.6 L Mean Corpuscular Volume 94.5 Mean Corpuscular Hemoglobin 31.1 Mean Corpuscular Hemoglobin Concent 32.9 Red Cell Distribution Width 19.1 H Platelet Count 88 #L Mean Platelet Volume 9.3 Neutrophils % 83.4 H Lymphocytes % 4.7 L Monocytes % 9.8 Eosinophils % 0.3 Basophils % 0.2 Nucleated Red Blood Cells % 0.0 Neutrophils # 12.8 H Lymphocytes # 0.7 L Monocytes # 1.5 H Eosinophils # 0.1 Basophils # 0.0 Nucleated Red Blood Cells # 0.0 Sodium Level 143 Potassium Level 2.9 *L Chloride Level 110 Carbon Dioxide Level 23 Anion Gap 13 Blood Urea Nitrogen 28 H Creatinine 0.91 Glucose Level 166 Calcium Level 8.1 L Ammonia 17 Bedside Glucose 140 Medications Current Medications Ondansetron HCl (Zofran Inj) 4 mg Q6H PRN IV NAUSEA AND/OR VOMITING Last administered on 12/31/16 09:52; Admin Dose 4 MG; Start 12/27/16 at 12:00 Acetaminophen (Tylenol Tab) 650 mg Q6H PRN PO PAIN LEVEL 1-3 OR FEVER; Start at 12:00 Acetaminophen (Tylenol Supp) 650 mg Q4H PRN [place] PAIN LEVEL 1-3 OR FEVER; Start 12/27/16 at 12:00 Acetaminophen/ Hydrocodone Bitart ([place] (5/325)) 1 tab Q6H PRN PO PAIN LEVEL 4 -6; Start 12/27/16 at 12:00 Morphine Sulfate (morphine) 1 mg Q4H PRN IV PAIN LEVEL 7-10 Last administered on 01/01/17 00:26; Admin Dose 1 MG; Start 12/27/16 at 12:00 Docusate Sodium (Colace) 100 mg Q12H PRN PO CONSTIPATION; Start 12/27/16 at 12: 00 Bisacodyl 10 mg 10 mg DAILY PRN [place] CONSTIPATION; Start 12/27/16 at 12:00 Piperacillin Sod/ Tazobactam Sod (Zosyn 2.25gm/ 50ml (Pmx)) 50 ml @ 200 mls/hr Q6 IVPB Last administered on 01/02/17 05:34; Admin Dose 200 MLS/HR; Start 12/27 at 16:00 Miscellaneous Information 1 ea NOTE XX ; Start 12/27/16 at 16:30 Glucose (Glutose) 15 gm Q15M PRN PO DECREASED GLUCOSE; Start 12/27/16 at 16:30 Glucose (Glutose) 22.5 gm Q15M PRN PO DECREASED GLUCOSE; Start 12/27/16 at 16: 30 Dextrose (D50w Syringe) 25 ml Q15M PRN IV DECREASED GLUCOSE; Start 12/27/16 at 16:30 Dextrose (D50w Syringe) 50 ml Q15M PRN IV DECREASED GLUCOSE; Start 12/27/16 at 16:30 Glucagon (Glucagen) 1 mg Q15M PRN IM DECREASED GLUCOSE; Start 12/27/16 at 16:30 Glucose (Glutose) 15 gm Q15M PRN BUCCAL DECREASED GLUCOSE; Start 12/27/16 at 16 :30 Tobramycin Sulfate (Tobrex 0.3% Oph Drop) 1 drop QID BOTH EYES Last administered on 01/02/17 09:33; Admin Dose 1 DROP; Start 12/29/16 at 13:00; Stop 01/05/17 at 12:59 Pantoprazole (Protonix Tab) 40 mg BID@06,18 PO Last administered on 01/02/17 05 :34; Admin Dose 40 MG; Start 01/01/17 at 18:00 Lactulose (Enulose) 20 gm Q8 PO Last administered on 01/02/17 05:34; Admin Dose 20 GM; Start 01/01/17 at 14:00 Diagnostic Test (Pha) (Accu-Chek) 1 ea 02 XX ; Start 01/03/17 at 02:00 Assessment/Plan Chief Complaint/Hosp Course Assessment 1. Acute GI bleed secondary to esophageal varices status post endoscopy 2. Status post hypovolemic shock with resuscitation 3. Anemia status post transfusion 4. Cirrhosis 5. Resolving hepatic encephalopathy 6. Thrombocytopenia secondary to above 7. Hypoxemic respiratory failure secondary to above Plan 1. Aspiration precautions and nasal cannula oxygen 2. Replace potassium 3. Continue GI recommendations with proton pump inhibitor 4. Speech therapy recommendations 5. DVT and GI prophylaxis 6. Antibiotics per ID Disposition Patient will likely need long-term facility Consider palliative care consult as overall prognosis very poor Problems: YULIET MONTALVO MD, [facility] Jan 02, 2017 12:40
[2017-01-02] MEDS ORDERED: POTASSIUM CHLORIDE 250 ML IVPB ONE (15:30)
--- NOTE | 2017-01-02 16:06 | PN ---
Date/Time of Note Date/Time of Note DATE: 01/02/17 TIME: 16:04 Assessment/Plan VTE Prophylaxis VTE Prophylaxis Intervention: SCD's Lines/Catheters [facility] Type [facility] Central Line Central line still needed: Yes Urinary Cath still in place: Yes Reason Cath still needed: urinary retention Assessment/Plan Chief Complaint/Hosp Course ASSESSMENT AND PLAN: 1. Upper gastrointestinal bleed. Gastroenterology has been consulted. The patient has been placed on IV octreotide and IV Protonix. Status post upper endoscopy and finding of bleeding esophageal varices, s/p band ligation x 4 and oozing of severe portal hypertensive gastropathy, unable to perform banding as the oozing of blood involves the whole stomach. Continue aggressive medical management via octreotide and Protonix No NG tube / insertion of NG tube may displace the bands on the varices and lead to massive variceal bleeding. As per digital computer operator will hold off on EGD for today as patient's h/h increased appropriately after transfusion , Also risks of repeating the EGD with patient's unstable hemodynamically is high. We will perform EGD only if patient develops e/o overt GIB 2. Severe metabolic acidosis, status post bicarbonate drip. Pulmonology has been consulted. 3. Hyponatremia. Continue IV fluid. 4. History of atrial fibrillation. Cardiology has been consulted. Continue amiodarone, at this time, we will hold blood pressure since the hypotension. 5. Sepsis , The patient has been started on Zosyn and vancomycin, IV fluid. Stable 6. Anemia, likely secondary to GI bleed status post transfusion packed red blood cell. H&H is more stable at this time, continue to monitor hemoglobin and hematocrit. 7. Dyslipidemia. Restart statin when patient is able to tolerate p.o. intake. 8. [address] the patient on insulin sliding scale. Hold metformin at this time secondary to lactic acidosis. 9. Acute respiratory failure, extubated on 12/30/2016, continue oxygen via nasal cannula and breathing treatment 10. History of cirrhosis, continue to monitor LFTs 11. Thrombocytopenia, likely secondary to #10, continue to monitor 12. Elevated ammonia level, continue lactulose, no evidence of encephalopathy at this time, follow-up ammonia level in a.m. For deep venous thrombosis prophylaxis, on sequential compression devices, refrain from using any pharmacologic DVT prophylaxis secondary to gastrointestinal bleed. Plan to discharge to shelter facility versus acute rehab when cleared by digital computer operator and chemical research technician Palliative care consult poor prognosis Problems: Subjective 24 Hr Interval Summary Free Text/Dictation No acute event Patient continues to be mildly confused Minimal p.o. intake Exam/Review of Systems Vital Signs Vitals Vital Signs Date Time Temp Pulse Resp B/P Pulse Ox O2 Delivery O2 Flow Rate FiO2 01/02/17 15:51 97.7 73 19 123/64 89 01/02/17 07:30 Nasal Cannula 2.0 12/30/16 11:30 30 Intake and Output 01/01/17 01/01/17 01/02/17 14:59 22:59 06:59 Intake Total 300 ml 340 ml Output Total 300 ml 300 ml Balance 0 ml 40 ml Exam General: The patient is cachectic, Not in acute distress. HEENT: Atraumatic, normocephalic. The pupils are equal and round . Neck: Supple with full range of motion. Chest: Normal expansion of the thorax during inspiration Lungs: Clear to auscultation bilaterally Heart: Normal S1-S2, Regular rhythm and rate. Abdomen: Soft , nontender, nondistended , bowel sounds are present. Umbilical hernia Extremities: Normal to inspection, no edema no cyanosis Neurologic: ,The patient is awake, alert Results Result Diagram: 01/02/17 1011 01/02/17 1011 Results 24 hrs Laboratory Tests Test 01/01/17 17:26 01/01/17 21:08 01/02/17 02:15 01/02/17 07:51 Bedside Glucose 148 148 120 131 Test 01/02/17 10:11 01/02/17 11:23 White Blood Count 15.4 #H Red Blood Count 3.66 L Hemoglobin 11.4 L Hematocrit 34.6 L Mean Corpuscular Volume 94.5 Mean Corpuscular Hemoglobin 31.1 Mean Corpuscular Hemoglobin Concent 32.9 Red Cell Distribution Width 19.1 H Platelet Count 88 #L Mean Platelet Volume 9.3 Neutrophils % 83.4 H Lymphocytes % 4.7 L Monocytes % 9.8 Eosinophils % 0.3 Basophils % 0.2 Nucleated Red Blood Cells % 0.0 Neutrophils # 12.8 H Lymphocytes # 0.7 L Monocytes # 1.5 H Eosinophils # 0.1 Basophils # 0.0 Nucleated Red Blood Cells # 0.0 Sodium Level 143 Potassium Level 2.9 *L Chloride Level 110 Carbon Dioxide Level 23 Anion Gap 13 Blood Urea Nitrogen 28 H Creatinine 0.91 Glucose Level 166 Calcium Level 8.1 L Ammonia 17 Bedside Glucose 140 Medications Medications Current Medications Ondansetron HCl (Zofran Inj) 4 mg Q6H PRN IV NAUSEA AND/OR VOMITING Last administered on 12/31/16 09:52; Admin Dose 4 MG; Start 12/27/16 at 12:00 Acetaminophen (Tylenol Tab) 650 mg Q6H PRN PO PAIN LEVEL 1-3 OR FEVER; Start at 12:00 Acetaminophen (Tylenol Supp) 650 mg Q4H PRN [place] PAIN LEVEL 1-3 OR FEVER; Start 12/27/16 at 12:00 Acetaminophen/ Hydrocodone Bitart ([place] (5/325)) 1 tab Q6H PRN PO PAIN LEVEL 4 -6; Start 12/27/16 at 12:00 Morphine Sulfate (morphine) 1 mg Q4H PRN IV PAIN LEVEL 7-10 Last administered on 01/01/17 00:26; Admin Dose 1 MG; Start 12/27/16 at 12:00 Docusate Sodium (Colace) 100 mg Q12H PRN PO CONSTIPATION; Start 12/27/16 at 12: 00 Bisacodyl 10 mg 10 mg DAILY PRN [place] CONSTIPATION; Start 12/27/16 at 12:00 Piperacillin Sod/ Tazobactam Sod (Zosyn 2.25gm/ 50ml (Pmx)) 50 ml @ 200 mls/hr Q6 IVPB Last administered on 01/02/17 12:51; Admin Dose 200 MLS/HR; Start 12/27 at 16:00 Miscellaneous Information 1 ea NOTE XX ; Start 12/27/16 at 16:30 Glucose (Glutose) 15 gm Q15M PRN PO DECREASED GLUCOSE; Start 12/27/16 at 16:30 Glucose (Glutose) 22.5 gm Q15M PRN PO DECREASED GLUCOSE; Start 12/27/16 at 16: 30 Dextrose (D50w Syringe) 25 ml Q15M PRN IV DECREASED GLUCOSE; Start 12/27/16 at 16:30 Dextrose (D50w Syringe) 50 ml Q15M PRN IV DECREASED GLUCOSE; Start 12/27/16 at 16:30 Glucagon (Glucagen) 1 mg Q15M PRN IM DECREASED GLUCOSE; Start 12/27/16 at 16:30 Glucose (Glutose) 15 gm Q15M PRN BUCCAL DECREASED GLUCOSE; Start 12/27/16 at 16 :30 Tobramycin Sulfate (Tobrex 0.3% Oph Drop) 1 drop QID BOTH EYES Last administered on 01/02/17 12:51; Admin Dose 1 DROP; Start 12/29/16 at 13:00; Stop 01/05/17 at 12:59 Pantoprazole (Protonix Tab) 40 mg BID@06,18 PO Last administered on 01/02/17 05 :34; Admin Dose 40 MG; Start 01/01/17 at 18:00 Lactulose (Enulose) 20 gm Q8 PO Last administered on 01/02/17 14:33; Admin Dose 20 GM; Start 01/01/17 at 14:00 Diagnostic Test (Pha) 1 ea 1 ea 02 XX ; Start 01/03/17 at 02:00 Potassium Chloride (KCl 40 MEQ/250 ML NS) 250 ml @ 62.5 mls/hr ONCE ONCE IVPB ; Start 01/02/17 at 15:30; Stop 01/02/17 at 19:29 OZIEL HAMPTON MD Jan 02, 2017 16:06
--- NOTE | 2017-01-02 16:37 | PN ---
Date/Time of Note Date/Time of Note DATE: 01/02/17 TIME: 16:34 Assessment/Plan VTE Prophylaxis VTE Prophylaxis Intervention: SCD's Lines/Catheters [facility] Central Line Central line still needed: Yes Urinary Cath still in place: Yes Reason Cath still needed: urinary retention Assessment/Plan Chief Complaint/Hosp Course Problems: Assessment/Plan Upper GI bleed controlled * S/P EGD with band ligation x 4 on 12-27-16 of bleeding esophageal varices. She is also bleeding from portal hypertensive gastropathy but no hemostasis is done as the bleeding from this is diffuse and involves the whole stomach. * Anemia Hemoglobin 10.4 * History of atrial fibrillation. * Dyslipidemia. * Diabetes mellitus Plan * D/C Protonix drip * oral protonix * continue present management Subjective 24 Hr Interval Summary Free Text/Dictation * course reviewed with rn * patient seen and examined * no hematemesis,no vomiting * latest hemoglobin 11.4 Exam/Review of Systems Vital Signs Vitals Vital Signs Date Time Temp Pulse Resp B/P Pulse Ox O2 Delivery O2 Flow Rate FiO2 01/02/17 16:00 67 01/02/17 15:51 97.7 19 123/64 89 01/02/17 07:30 Nasal Cannula 2.0 12/30/16 11:30 30 Intake and Output 01/01/17 01/01/17 01/02/17 15:00 23:00 07:00 Intake Total 300 ml 340 ml Output Total 300 ml 300 ml Balance 0 ml 40 ml Exam Constitutional: alert, frail Respiratory: clear to auscultation, normal air movement Cardiovascular: nl pulses, regular rate and rhythm Gastrointestinal: bowel sounds, non-tender, soft, No rebound or guarding Results Result Diagram: 01/02/17 1011 01/02/17 1011 Results 24 hrs Laboratory Tests Test 01/01/17 17:26 01/01/17 21:08 01/02/17 02:15 01/02/17 07:51 Bedside Glucose 148 148 120 131 Test 01/02/17 10:11 01/02/17 11:23 White Blood Count 15.4 #H Red Blood Count 3.66 L Hemoglobin 11.4 L Hematocrit 34.6 L Mean Corpuscular Volume 94.5 Mean Corpuscular Hemoglobin 31.1 Mean Corpuscular Hemoglobin Concent 32.9 Red Cell Distribution Width 19.1 H Platelet Count 88 #L Mean Platelet Volume 9.3 Neutrophils % 83.4 H Lymphocytes % 4.7 L Monocytes % 9.8 Eosinophils % 0.3 Basophils % 0.2 Nucleated Red Blood Cells % 0.0 Neutrophils # 12.8 H Lymphocytes # 0.7 L Monocytes # 1.5 H Eosinophils # 0.1 Basophils # 0.0 Nucleated Red Blood Cells # 0.0 Sodium Level 143 Potassium Level 2.9 *L Chloride Level 110 Carbon Dioxide Level 23 Anion Gap 13 Blood Urea Nitrogen 28 H Creatinine 0.91 Glucose Level 166 Calcium Level 8.1 L Ammonia 17 Bedside Glucose 140 Medications Medications Current Medications Ondansetron HCl (Zofran Inj) 4 mg Q6H PRN IV NAUSEA AND/OR VOMITING Last administered on 12/31/16 09:52; Admin Dose 4 MG; Start 12/27/16 at 12:00 Acetaminophen (Tylenol Tab) 650 mg Q6H PRN PO PAIN LEVEL 1-3 OR FEVER; Start at 12:00 Acetaminophen (Tylenol Supp) 650 mg Q4H PRN [place] PAIN LEVEL 1-3 OR FEVER; Start 12/27/16 at 12:00 Acetaminophen/ Hydrocodone Bitart ([place] (5/325)) 1 tab Q6H PRN PO PAIN LEVEL 4 -6; Start 12/27/16 at 12:00 Morphine Sulfate (morphine) 1 mg Q4H PRN IV PAIN LEVEL 7-10 Last administered on 01/01/17 00:26; Admin Dose 1 MG; Start 12/27/16 at 12:00 Docusate Sodium (Colace) 100 mg Q12H PRN PO CONSTIPATION; Start 12/27/16 at 12: 00 Bisacodyl 10 mg 10 mg DAILY PRN [place] CONSTIPATION; Start 12/27/16 at 12:00 Piperacillin Sod/ Tazobactam Sod (Zosyn 2.25gm/ 50ml (Pmx)) 50 ml @ 200 mls/hr Q6 IVPB Last administered on 01/02/17 12:51; Admin Dose 200 MLS/HR; Start 12/27 at 16:00 Miscellaneous Information 1 ea NOTE XX ; Start 12/27/16 at 16:30 Glucose (Glutose) 15 gm Q15M PRN PO DECREASED GLUCOSE; Start 12/27/16 at 16:30 Glucose (Glutose) 22.5 gm Q15M PRN PO DECREASED GLUCOSE; Start 12/27/16 at 16: 30 Dextrose (D50w Syringe) 25 ml Q15M PRN IV DECREASED GLUCOSE; Start 12/27/16 at 16:30 Dextrose (D50w Syringe) 50 ml Q15M PRN IV DECREASED GLUCOSE; Start 12/27/16 at 16:30 Glucagon (Glucagen) 1 mg Q15M PRN IM DECREASED GLUCOSE; Start 12/27/16 at 16:30 Glucose (Glutose) 15 gm Q15M PRN BUCCAL DECREASED GLUCOSE; Start 12/27/16 at 16 :30 Tobramycin Sulfate (Tobrex 0.3% Oph Drop) 1 drop QID BOTH EYES Last administered on 01/02/17 12:51; Admin Dose 1 DROP; Start 12/29/16 at 13:00; Stop 01/05/17 at 12:59 Pantoprazole (Protonix Tab) 40 mg BID@06,18 PO Last administered on 01/02/17 05 :34; Admin Dose 40 MG; Start 01/01/17 at 18:00 Lactulose (Enulose) 20 gm Q8 PO Last administered on 01/02/17 14:33; Admin Dose 20 GM; Start 01/01/17 at 14:00 Diagnostic Test (Pha) 1 ea 1 ea 02 XX ; Start 01/03/17 at 02:00 Potassium Chloride (KCl 40 MEQ/250 ML NS) 250 ml @ 62.5 mls/hr ONCE ONCE IVPB ; Start 01/02/17 at 15:30; Stop 01/02/17 at 19:29 POLO CLARKE MD Jan 02, 2017 16:37
--- NOTE | 2017-01-02 19:43 | CONS ---
Date/Time of Note Date/Time of Note DATE: 01/02/17 TIME: 19:42 Assessment/Plan Assessment/Plan Chief Complaint/Hosp Course Assessment: Paroxysmal atrial fibrillation with rapid ventricular response - reverted to sinus rhythm with amiodarone drip Acute gastrointestinal bleeding with hematemesis - status post EGD with band ligation of esophageal varices 12/27/2016 Esophageal varices Liver cirrhosis Diabetes mellitus Intubated for airway protection - on mechanical ventilation Recommendations: -echocardiogram showed LVEF 65-70% -status post amiodarone drip, discontinued due to bradycardia -holding aspirin due to bleeding -follow up gastroenterology recommendations Problems: Consultation Date/Type/Reason Admit Date/Time Dec 27, 2016 at 10:02 Type of Consultation: Cardiology 24 HR Interval Summary Free Text/Dictation No acute events. Hemoglobin stable. Detailed Summary Additional Comments 14 point review of systems without changes. Exam/Review of Systems Vital Signs Vitals Vital Signs Date Time Temp Pulse Resp B/P Pulse Ox O2 Delivery O2 Flow Rate FiO2 01/02/17 18:12 2.0 01/02/17 16:00 67 01/02/17 15:51 97.7 19 123/64 89 01/02/17 07:30 Nasal Cannula 12/30/16 11:30 30 Intake and Output 01/01/17 01/01/17 01/02/17 15:00 23:00 07:00 Intake Total 300 ml 340 ml Output Total 300 ml 300 ml Balance 0 ml 40 ml Exam Constitutional: alert, no distress Head: atraumatic, normocephalic Neck: supple Respiratory: clear to auscultation, normal air movement Cardiovascular: irregular rhythm Gastrointestinal: distended, soft Musculoskeletal: nl extremities to inspection Extremities: No clubbing, No edema Neurological: Nl mental status, Nl speech Results Result Diagram: 01/02/17 1011 01/02/17 1011 Results 24 hrs Laboratory Tests Test 01/01/17 21:08 01/02/17 02:15 01/02/17 07:51 01/02/17 10:11 Bedside Glucose 148 120 131 White Blood Count 15.4 #H Red Blood Count 3.66 L Hemoglobin 11.4 L Hematocrit 34.6 L Mean Corpuscular Volume 94.5 Mean Corpuscular Hemoglobin 31.1 Mean Corpuscular Hemoglobin Concent 32.9 Red Cell Distribution Width 19.1 H Platelet Count 88 #L Mean Platelet Volume 9.3 Neutrophils % 83.4 H Lymphocytes % 4.7 L Monocytes % 9.8 Eosinophils % 0.3 Basophils % 0.2 Nucleated Red Blood Cells % 0.0 Neutrophils # 12.8 H Lymphocytes # 0.7 L Monocytes # 1.5 H Eosinophils # 0.1 Basophils # 0.0 Nucleated Red Blood Cells # 0.0 Sodium Level 143 Potassium Level 2.9 *L Chloride Level 110 Carbon Dioxide Level 23 Anion Gap 13 Blood Urea Nitrogen 28 H Creatinine 0.91 Glucose Level 166 Calcium Level 8.1 L Ammonia 17 Test 01/02/17 11:23 01/02/17 17:14 Bedside Glucose 140 190 Medications Medications Current Medications Ondansetron HCl (Zofran Inj) 4 mg Q6H PRN IV NAUSEA AND/OR VOMITING Last administered on 12/31/16 09:52; Admin Dose 4 MG; Start 12/27/16 at 12:00 Acetaminophen (Tylenol Tab) 650 mg Q6H PRN PO PAIN LEVEL 1-3 OR FEVER; Start at 12:00 Acetaminophen (Tylenol Supp) 650 mg Q4H PRN [place] PAIN LEVEL 1-3 OR FEVER; Start 12/27/16 at 12:00 Acetaminophen/ Hydrocodone Bitart ([place] (5/325)) 1 tab Q6H PRN PO PAIN LEVEL 4 -6; Start 12/27/16 at 12:00 Morphine Sulfate (morphine) 1 mg Q4H PRN IV PAIN LEVEL 7-10 Last administered on 01/01/17 00:26; Admin Dose 1 MG; Start 12/27/16 at 12:00 Docusate Sodium (Colace) 100 mg Q12H PRN PO CONSTIPATION; Start 12/27/16 at 12: 00 Bisacodyl 10 mg 10 mg DAILY PRN [place] CONSTIPATION; Start 12/27/16 at 12:00 Piperacillin Sod/ Tazobactam Sod (Zosyn 2.25gm/ 50ml (Pmx)) 50 ml @ 200 mls/hr Q6 IVPB Last administered on 01/02/17 17:33; Admin Dose 200 MLS/HR; Start 12/27 at 16:00 Miscellaneous Information 1 ea NOTE XX ; Start 12/27/16 at 16:30 Glucose (Glutose) 15 gm Q15M PRN PO DECREASED GLUCOSE; Start 12/27/16 at 16:30 Glucose (Glutose) 22.5 gm Q15M PRN PO DECREASED GLUCOSE; Start 12/27/16 at 16: 30 Dextrose (D50w Syringe) 25 ml Q15M PRN IV DECREASED GLUCOSE; Start 12/27/16 at 16:30 Dextrose (D50w Syringe) 50 ml Q15M PRN IV DECREASED GLUCOSE; Start 12/27/16 at 16:30 Glucagon (Glucagen) 1 mg Q15M PRN IM DECREASED GLUCOSE; Start 12/27/16 at 16:30 Glucose (Glutose) 15 gm Q15M PRN BUCCAL DECREASED GLUCOSE; Start 12/27/16 at 16 :30 Tobramycin Sulfate (Tobrex 0.3% Oph Drop) 1 drop QID BOTH EYES Last administered on 01/02/17 17:18; Admin Dose 1 DROP; Start 12/29/16 at 13:00; Stop 01/05/17 at 12:59 Pantoprazole (Protonix Tab) 40 mg BID@06,18 PO Last administered on 01/02/17 17 :33; Admin Dose 40 MG; Start 01/01/17 at 18:00 Lactulose (Enulose) 20 gm Q8 PO Last administered on 01/02/17 14:33; Admin Dose 20 GM; Start 01/01/17 at 14:00 Diagnostic Test (Pha) (Accu-Chek) 1 ea 02 XX ; Start 01/03/17 at 02:00 PACO JEAN MD Jan 02, 2017 19:43
[2017-01-03 01:30] VITALS: BP 150/69; RESP 20
[2017-01-03] MEDS: ALBUTEROL/IPRATROPIUM (NEB) 3 ML AMP NEB PRN ×2 (01:53→22:09)
[2017-01-03] MEDS: ACCUCHECK AT 2AM (Patients on SS coverage) XX SCH (02:00)
[2017-01-03] MEDS: PANTOPRAZOLE (EC) 40 MG TAB PO SCH ×2 (05:28→18:00)
[2017-01-03] MEDS: PIPER-TAZO 2.25 GM (PMX) 50 ML IVPB SCH ×3 (05:28→19:42)
[2017-01-03] MEDS: LACTULOSE 30ML CUP PO SCH ×3 (05:29→21:04)
[2017-01-03 07:26] LABS: ADD SCAN DIFF NO
[2017-01-03 07:34] LABS: ABNORMAL IP MESSAGE 1; HEMATOCRIT 36.8 % (37.0-47.0); HEMOGLOBIN 11.9 g/dl (12.0-16.0); MEAN CORPUSCULAR HEMOGLOBIN 31.5 pg (29.0-33.0); MEAN CORPUSCULAR HGB CONC 32.3 g/dl (32.0-37.0); MEAN CORPUSCULAR VOLUME 97.4 fl (82.0-101.0); MEAN PLATELET VOLUME 11.1 fl (7.4-10.4); RED BLOOD COUNT 3.78 10^6/ul (4.20-5.40); WHITE BLOOD COUNT 13.6 10^3/ul (4.8-10.8)
[2017-01-03 07:46] LABS: CALCIUM 8.2 mg/dl (8.4-10.2); CREATININE 0.9 mg/dl (0.44-1.00); POTASSIUM 3.7 mmol/L (3.5-5.1)
[2017-01-03] MEDS: Insulin NOVOLOG SS MILD Algorithm (SS with meals and bedtime) SC SCH ×4 (08:00→21:00)
[2017-01-03 08:09] VITALS: BP 144/77; RESP 22
[2017-01-03] MEDS: TOBRAMYCIN 0.3% 5 ML OPH BOTH EYES SCH ×4 (08:40→21:01)
[2017-01-03 11:04] LABS: PLATELET COUNT 99 10^3/UL (140-415)
--- NOTE | 2017-01-03 12:44 | CONS ---
Date/Time of Note Date/Time of Note DATE: 01/03/17 TIME: 12:37 Assessment/Plan Assessment/Plan Chief Complaint/Hosp Course Mrs. Ami Swan presented to the ED secondary to hematemesis. Spoke to patient's son. Per patient's son, he found his mother laying down in the pool of blood. Patient son states his mother has been symptom-free since last EGD in June. He denies she was experiencing any abdominal pain, nausea, vomiting , fever, chills, chest pain, and shortness of breath. Patient patient previously had EGD in June 2016 and had grade IV/IV. Patient noted to have liver cirrhosis but etiology unknown. Patient has PMH of atrial fibrillation and currently on aspirin, type 2 diabetes, and liver cirrhosis. Problems: Additional Assessment/Plan Upper GI bleed controlled * S/P EGD with band ligation x 4 on 12-27-16 of bleeding esophageal varices. She is also bleeding from portal hypertensive gastropathy but no hemostasis is done as the bleeding from this is diffuse and involves the whole stomach. * Anemia * History of atrial fibrillation. * Dyslipidemia. * Diabetes mellitus Plan * Continue PPI therapy * continue present management * Further recommendations pending clinical course * Patient seen in collaboration with Dr. Bishop Consultation Date/Type/Reason Admit Date/Time Dec 27, 2016 at 10:02 Initial Consult Date Type of Consultation: Gastroenterology 24 HR Interval Summary Free Text/Dictation Hemoglobin stable Tolerating diet Reports of increasing abdominal girth Abdominal ultrasound ordered to evaluate Exam/Review of Systems Vital Signs Vitals Vital Signs Date Time Temp Pulse Resp B/P Pulse Ox O2 Delivery O2 Flow Rate FiO2 01/03/17 08:09 98.0 97 22 144/77 92 01/03/17 08:00 Nasal Cannula 2.0 12/30/16 11:30 30 Intake and Output 01/02/17 01/02/17 01/03/17 15:00 23:00 07:00 Intake Total 650 ml 100 ml Output Total 400 ml Balance 650 ml -300 ml Exam Constitutional: alert, frail Psych: nl mood/affect Head: normocephalic Eyes: EOMI, nl conjunctiva, nl lids ENMT: nl external ears & nose, nl lips & teeth, nl nasal mucosa & septum Respiratory: clear to auscultation, normal air movement, 4 L nasal cannula Cardiovascular: regular rate and rhythm Gastrointestinal: Firm, non-tender Musculoskeletal: nl extremities to inspection Neurological: ANIMAL DOCTOR II-XII intact Results Result Diagram: 01/03/17 0940 01/03/17 0703 Results 24 hrs Laboratory Tests Test 01/02/17 17:14 01/02/17 20:56 01/03/17 07:03 01/03/17 08:37 Bedside Glucose 190 144 127 Sodium Level 144 Potassium Level 3.7 Chloride Level 117 H Carbon Dioxide Level 23 Anion Gap 8 Blood Urea Nitrogen 32 H Creatinine 0.90 Glucose Level 138 Calcium Level 8.2 L Test 01/03/17 09:40 01/03/17 12:16 White Blood Count 13.6 H Red Blood Count 3.78 L Hemoglobin 11.9 L Hematocrit 36.8 L Mean Corpuscular Volume 97.4 Mean Corpuscular Hemoglobin 31.5 Mean Corpuscular Hemoglobin Concent 32.3 Red Cell Distribution Width 20.0 H Platelet Count 99 L Mean Platelet Volume 11.1 H Bedside Glucose 162 Medications Medications Current Medications Ondansetron HCl (Zofran Inj) 4 mg Q6H PRN IV NAUSEA AND/OR VOMITING Last administered on 12/31/16 09:52; Admin Dose 4 MG; Start 12/27/16 at 12:00 Acetaminophen (Tylenol Tab) 650 mg Q6H PRN PO PAIN LEVEL 1-3 OR FEVER; Start at 12:00 Acetaminophen (Tylenol Supp) 650 mg Q4H PRN [place] PAIN LEVEL 1-3 OR FEVER; Start 12/27/16 at 12:00 Acetaminophen/ Hydrocodone Bitart ([place] (5/325)) 1 tab Q6H PRN PO PAIN LEVEL 4 -6; Start 12/27/16 at 12:00 Morphine Sulfate (morphine) 1 mg Q4H PRN IV PAIN LEVEL 7-10 Last administered on 01/01/17 00:26; Admin Dose 1 MG; Start 12/27/16 at 12:00 Docusate Sodium (Colace) 100 mg Q12H PRN PO CONSTIPATION; Start 12/27/16 at 12: 00 Bisacodyl 10 mg 10 mg DAILY PRN [place] CONSTIPATION; Start 12/27/16 at 12:00 Piperacillin Sod/ Tazobactam Sod (Zosyn 2.25gm/ 50ml (Pmx)) 50 ml @ 200 mls/hr Q6 IVPB Last administered on 01/03/17 12:27; Admin Dose 200 MLS/HR; Start 12/27 at 16:00 Miscellaneous Information 1 ea NOTE XX ; Start 12/27/16 at 16:30 Glucose (Glutose) 15 gm Q15M PRN PO DECREASED GLUCOSE; Start 12/27/16 at 16:30 Glucose (Glutose) 22.5 gm Q15M PRN PO DECREASED GLUCOSE; Start 12/27/16 at 16: 30 Dextrose (D50w Syringe) 25 ml Q15M PRN IV DECREASED GLUCOSE; Start 12/27/16 at 16:30 Dextrose (D50w Syringe) 50 ml Q15M PRN IV DECREASED GLUCOSE; Start 12/27/16 at 16:30 Glucagon (Glucagen) 1 mg Q15M PRN IM DECREASED GLUCOSE; Start 12/27/16 at 16:30 Glucose (Glutose) 15 gm Q15M PRN BUCCAL DECREASED GLUCOSE; Start 12/27/16 at 16 :30 Tobramycin Sulfate (Tobrex 0.3% Oph Drop) 1 drop QID BOTH EYES Last administered on 01/03/17 12:28; Admin Dose 1 DROP; Start 12/29/16 at 13:00; Stop 01/05/17 at 12:59 Pantoprazole (Protonix Tab) 40 mg BID@06,18 PO Last administered on 01/03/17 05 :28; Admin Dose 40 MG; Start 01/01/17 at 18:00 Lactulose (Enulose) 20 gm Q8 PO Last administered on 01/02/17 14:33; Admin Dose 20 GM; Start 01/01/17 at 14:00 Diagnostic Test (Pha) (Accu-Chek) 1 ea 02 XX ; Start 01/03/17 at 02:00 MADIHA PEREZ Jan 03, 2017 12:44
[2017-01-03 13:39] LABS: LYMPHOCYTES # 1.1 10^3/ul (0.8-2.9); MONOCYTE # 1.1 10^3/ul (0.3-0.9); NEUTROPHIL # 11.3 10^3/ul (1.6-7.5); PLATELET ESTIMATE PLT APPEAR DECREASED
--- NOTE | 2017-01-03 13:47 | CONS ---
Date/Time of Note Date/Time of Note DATE: 01/03/17 TIME: 13:46 Consult Date/Type/Reason Admit Date/Time Dec 27, 2016 at 10:02 Type of Consultation: pulmonary Subjective Appears comfortable this morning no respiratory distress Objective Vital Signs Date Time Temp Pulse Resp B/P Pulse Ox O2 Delivery O2 Flow Rate FiO2 01/03/17 08:09 98.0 97 22 144/77 92 01/03/17 08:00 Nasal Cannula 2.0 12/30/16 11:30 30 Intake and Output 01/02/17 01/02/17 01/03/17 15:00 23:00 07:00 Intake Total 650 ml 100 ml Output Total 400 ml Balance 650 ml -300 ml Exam GENERAL: Elderly lady appears comfortable at rest no acute distress VITAL SIGNS: per chart NECK: Supple. No JVD or lymphadenopathy. CARDIAC EXAM: S1, S2. No added sounds or murmurs. CHEST: Diminished air entry both lung bases no rales or wheezes ABDOMEN: Soft, nontender. No guarding or rebound. EXTREMITIES: No cyanosis, clubbing or edema. NEUROLOGIC: Generalized weakness. No focal deficits. Results/Medications Result Diagram: 01/03/17 0940 01/03/17 0703 Results 24 hrs Laboratory Tests Test 01/02/17 17:14 01/02/17 20:56 01/03/17 07:03 01/03/17 08:37 Bedside Glucose 190 144 127 Sodium Level 144 Potassium Level 3.7 Chloride Level 117 H Carbon Dioxide Level 23 Anion Gap 8 Blood Urea Nitrogen 32 H Creatinine 0.90 Glucose Level 138 Calcium Level 8.2 L Test 01/03/17 09:40 01/03/17 12:16 White Blood Count 13.6 H Red Blood Count 3.78 L Hemoglobin 11.9 L Hematocrit 36.8 L Mean Corpuscular Volume 97.4 Mean Corpuscular Hemoglobin 31.5 Mean Corpuscular Hemoglobin Concent 32.3 Red Cell Distribution Width 20.0 H Platelet Count 99 L Mean Platelet Volume 11.1 H Neutrophils % 83.0 H Band Neutrophils % 1.0 Lymphocytes % 8.0 L Monocytes % 8.0 Neutrophils # 11.3 H Lymphocytes # 1.1 Monocytes # 1.1 H Platelet Estimate PLT APPEAR DECREASED Bedside Glucose 162 Medications Current Medications Ondansetron HCl (Zofran Inj) 4 mg Q6H PRN IV NAUSEA AND/OR VOMITING Last administered on 12/31/16 09:52; Admin Dose 4 MG; Start 12/27/16 at 12:00 Acetaminophen (Tylenol Tab) 650 mg Q6H PRN PO PAIN LEVEL 1-3 OR FEVER; Start at 12:00 Acetaminophen (Tylenol Supp) 650 mg Q4H PRN [place] PAIN LEVEL 1-3 OR FEVER; Start 12/27/16 at 12:00 Acetaminophen/ Hydrocodone Bitart ([place] (5/325)) 1 tab Q6H PRN PO PAIN LEVEL 4 -6; Start 12/27/16 at 12:00 Morphine Sulfate (morphine) 1 mg Q4H PRN IV PAIN LEVEL 7-10 Last administered on 01/01/17 00:26; Admin Dose 1 MG; Start 12/27/16 at 12:00 Docusate Sodium (Colace) 100 mg Q12H PRN PO CONSTIPATION; Start 12/27/16 at 12: 00 Bisacodyl 10 mg 10 mg DAILY PRN [place] CONSTIPATION; Start 12/27/16 at 12:00 Piperacillin Sod/ Tazobactam Sod (Zosyn 2.25gm/ 50ml (Pmx)) 50 ml @ 200 mls/hr Q6 IVPB Last administered on 01/03/17 12:27; Admin Dose 200 MLS/HR; Start 12/27 at 16:00 Miscellaneous Information 1 ea NOTE XX ; Start 12/27/16 at 16:30 Glucose (Glutose) 15 gm Q15M PRN PO DECREASED GLUCOSE; Start 12/27/16 at 16:30 Glucose (Glutose) 22.5 gm Q15M PRN PO DECREASED GLUCOSE; Start 12/27/16 at 16: 30 Dextrose (D50w Syringe) 25 ml Q15M PRN IV DECREASED GLUCOSE; Start 12/27/16 at 16:30 Dextrose (D50w Syringe) 50 ml Q15M PRN IV DECREASED GLUCOSE; Start 12/27/16 at 16:30 Glucagon (Glucagen) 1 mg Q15M PRN IM DECREASED GLUCOSE; Start 12/27/16 at 16:30 Glucose (Glutose) 15 gm Q15M PRN BUCCAL DECREASED GLUCOSE; Start 12/27/16 at 16 :30 Tobramycin Sulfate (Tobrex 0.3% Oph Drop) 1 drop QID BOTH EYES Last administered on 01/03/17 12:28; Admin Dose 1 DROP; Start 12/29/16 at 13:00; Stop 01/05/17 at 12:59 Pantoprazole (Protonix Tab) 40 mg BID@06,18 PO Last administered on 01/03/17 05 :28; Admin Dose 40 MG; Start 01/01/17 at 18:00 Lactulose (Enulose) 20 gm Q8 PO Last administered on 01/02/17 14:33; Admin Dose 20 GM; Start 01/01/17 at 14:00 Diagnostic Test (Pha) (Accu-Chek) 1 ea 02 XX ; Start 01/03/17 at 02:00 Assessment/Plan Chief Complaint/Hosp Course Assessment 1. Acute GI bleed secondary to esophageal varices status post endoscopy status post banding 2. Status post hypovolemic shock with resuscitation 3. Anemia status post transfusion 4. Cirrhosis 5. Resolving hepatic encephalopathy 6. Thrombocytopenia secondary to above 7. Hypoxemic respiratory failure secondary to above Plan 1. Aspiration precautions and nasal cannula oxygen 2. Replace electrolytes 3. Continue GI recommendations with proton pump inhibitor 4. Speech therapy recommendations 5. DVT and GI prophylaxis 6. Antibiotics per ID Disposition Consider transfer to [facility] facility Problems: YULIET MONTALVO MD, [facility] Jan 03, 2017 13:47
--- NOTE | 2017-01-03 15:34 | RADRPT ---
Vent Rate: 62 bpm RR Interval: 0 msec [place] Interval: 160 msec QRS Duration: 112 msec QT Interval: 426 msec QTC Interval: 432 msec P-R-T Till[place]: 65 - -61 - 0 degrees Sinus rhythm with marked sinus arrhythmia with frequent premature ventricular complexes Left axis deviation Low voltage QRS Inferior infarct , age undetermined Cannot rule out Anteroseptal infarct , age undetermined Abnormal ECG Electronically Signed By: Cristhian Hess [id number]
--- NOTE | 2017-01-03 15:44 | CONS ---
Date/Time of Note Date/Time of Note DATE: 01/03/17 TIME: 15:43 Assessment/Plan Assessment/Plan Chief Complaint/Hosp Course Assessment: Paroxysmal atrial fibrillation with rapid ventricular response - reverted to sinus rhythm with amiodarone drip Acute gastrointestinal bleeding with hematemesis - status post EGD with band ligation of esophageal varices 12/27/2016 Esophageal varices Liver cirrhosis Diabetes mellitus Intubated for airway protection - on mechanical ventilation Recommendations: -echocardiogram showed LVEF 65-70% -status post amiodarone drip, discontinued due to bradycardia -off aspirin due to bleeding -will follow up as needed Problems: Consultation Date/Type/Reason Admit Date/Time Dec 27, 2016 at 10:02 Type of Consultation: Cardiology 24 HR Interval Summary Free Text/Dictation Hemoglobin stable. Detailed Summary Additional Comments 14 point review of systems without changes. Exam/Review of Systems Vital Signs Vitals Vital Signs Date Time Temp Pulse Resp B/P Pulse Ox O2 Delivery O2 Flow Rate FiO2 01/03/17 15:22 2.0 01/03/17 08:09 98.0 97 22 144/77 92 01/03/17 08:00 Nasal Cannula 12/30/16 11:30 30 Intake and Output 01/02/17 01/02/17 01/03/17 15:00 23:00 07:00 Intake Total 650 ml 100 ml Output Total 400 ml Balance 650 ml -300 ml Exam Constitutional: alert, no distress Head: atraumatic, normocephalic Neck: supple Respiratory: clear to auscultation, normal air movement Cardiovascular: irregular rhythm Gastrointestinal: distended, soft Musculoskeletal: nl extremities to inspection Extremities: No clubbing, No edema Neurological: Nl mental status, Nl speech Results Result Diagram: 01/03/17 0940 01/03/17 0703 Results 24 hrs Laboratory Tests Test 01/02/17 17:14 01/02/17 20:56 01/03/17 07:03 01/03/17 08:37 Bedside Glucose 190 144 127 Sodium Level 144 Potassium Level 3.7 Chloride Level 117 H Carbon Dioxide Level 23 Anion Gap 8 Blood Urea Nitrogen 32 H Creatinine 0.90 Glucose Level 138 Calcium Level 8.2 L Test 01/03/17 09:40 01/03/17 12:16 White Blood Count 13.6 H Red Blood Count 3.78 L Hemoglobin 11.9 L Hematocrit 36.8 L Mean Corpuscular Volume 97.4 Mean Corpuscular Hemoglobin 31.5 Mean Corpuscular Hemoglobin Concent 32.3 Red Cell Distribution Width 20.0 H Platelet Count 99 L Mean Platelet Volume 11.1 H Neutrophils % 83.0 H Band Neutrophils % 1.0 Lymphocytes % 8.0 L Monocytes % 8.0 Neutrophils # 11.3 H Lymphocytes # 1.1 Monocytes # 1.1 H Platelet Estimate PLT APPEAR DECREASED Bedside Glucose 162 Medications Medications Current Medications Ondansetron HCl (Zofran Inj) 4 mg Q6H PRN IV NAUSEA AND/OR VOMITING Last administered on 12/31/16 09:52; Admin Dose 4 MG; Start 12/27/16 at 12:00 Acetaminophen (Tylenol Tab) 650 mg Q6H PRN PO PAIN LEVEL 1-3 OR FEVER; Start at 12:00 Acetaminophen (Tylenol Supp) 650 mg Q4H PRN [place] PAIN LEVEL 1-3 OR FEVER; Start 12/27/16 at 12:00 Acetaminophen/ Hydrocodone Bitart ([place] (5/325)) 1 tab Q6H PRN PO PAIN LEVEL 4 -6; Start 12/27/16 at 12:00 Morphine Sulfate (morphine) 1 mg Q4H PRN IV PAIN LEVEL 7-10 Last administered on 01/01/17 00:26; Admin Dose 1 MG; Start 12/27/16 at 12:00 Docusate Sodium (Colace) 100 mg Q12H PRN PO CONSTIPATION; Start 12/27/16 at 12: 00 Bisacodyl 10 mg 10 mg DAILY PRN [place] CONSTIPATION; Start 12/27/16 at 12:00 Piperacillin Sod/ Tazobactam Sod (Zosyn 2.25gm/ 50ml (Pmx)) 50 ml @ 200 mls/hr Q6 IVPB Last administered on 01/03/17 12:27; Admin Dose 200 MLS/HR; Start 12/27 at 16:00 Miscellaneous Information 1 ea NOTE XX ; Start 12/27/16 at 16:30 Glucose (Glutose) 15 gm Q15M PRN PO DECREASED GLUCOSE; Start 12/27/16 at 16:30 Glucose (Glutose) 22.5 gm Q15M PRN PO DECREASED GLUCOSE; Start 12/27/16 at 16: 30 Dextrose (D50w Syringe) 25 ml Q15M PRN IV DECREASED GLUCOSE; Start 12/27/16 at 16:30 Dextrose (D50w Syringe) 50 ml Q15M PRN IV DECREASED GLUCOSE; Start 12/27/16 at 16:30 Glucagon (Glucagen) 1 mg Q15M PRN IM DECREASED GLUCOSE; Start 12/27/16 at 16:30 Glucose (Glutose) 15 gm Q15M PRN BUCCAL DECREASED GLUCOSE; Start 12/27/16 at 16 :30 Tobramycin Sulfate (Tobrex 0.3% Oph Drop) 1 drop QID BOTH EYES Last administered on 01/03/17 12:28; Admin Dose 1 DROP; Start 12/29/16 at 13:00; Stop 01/05/17 at 12:59 Pantoprazole (Protonix Tab) 40 mg BID@06,18 PO Last administered on 01/03/17 05 :28; Admin Dose 40 MG; Start 01/01/17 at 18:00 Lactulose (Enulose) 20 gm Q8 PO Last administered on 01/02/17 14:33; Admin Dose 20 GM; Start 01/01/17 at 14:00 Diagnostic Test (Pha) (Accu-Chek) 1 02 XX ; Start 01/03/17 at 02:00 PACO JEAN MD Jan 03, 2017 15:44
--- NOTE | 2017-01-03 16:47 | PDOCDIS ---
Discharge Instructions CONDITION Patient Condition: Fair HOME CARE INSTRUCTIONS: Special Diet: cardiac 1800 ada diet ACTIVITY: Activity Restrictions: Special Exercises FOLLOW UP/APPOINTMENTS Appointments Follow-up with energy advisor as outpatient OZIEL HAMPTON MD Jan 03, 2017 16:47
[2017-01-03] MEDS ORDERED: DOCU-216 PO (16:49)
[2017-01-03] MEDS ORDERED: PANT40TA4 PO (16:49)
[2017-01-03] MEDS ORDERED: TBR.3OP5 BOTH EYES (16:49)
[2017-01-03] MEDS ORDERED: Lactulose PO (16:49)
[2017-01-03] MEDS ORDERED: SPIR50TA PO (16:49)
--- NOTE | 2017-01-03 16:52 | PN ---
Date/Time of Note Date/Time of Note DATE: 01/03/17 TIME: 16:51 Assessment/Plan VTE Prophylaxis VTE Prophylaxis Intervention: SCD's Lines/Catheters IV Catheter Type (from Nrs): Central Line Central line still needed: Yes Urinary Cath still in place: Yes Reason Cath still needed: other (indicate) Assessment/Plan Chief Complaint/Hosp Course ASSESSMENT AND PLAN: 1. Upper gastrointestinal bleed. Gastroenterology has been consulted. The patient has been placed on IV octreotide and IV Protonix. Status post upper endoscopy and finding of bleeding esophageal varices, s/p band ligation x 4 and oozing of severe portal hypertensive gastropathy, unable to perform banding as the oozing of blood involves the whole stomach. Continue aggressive medical management via octreotide and Protonix No NG tube / insertion of NG tube may displace the bands on the varices and lead to massive variceal bleeding. As per geriatric nurse will hold off on EGD for today as patient's h/h increased appropriately after transfusion , Also risks of repeating the EGD with patient's unstable hemodynamically is high. We will perform EGD only if patient develops e/o overt GIB 2. Severe metabolic acidosis, status post bicarbonate drip. Pulmonology has been consulted. 3. Hyponatremia. Continue IV fluid. 4. History of atrial fibrillation. Cardiology has been consulted. Continue amiodarone, at this time, we will hold blood pressure since the hypotension. 5. Sepsis , The patient has been started on Zosyn and vancomycin, IV fluid. Stable 6. Anemia, likely secondary to GI bleed status post transfusion packed red blood cell. H&H is more stable at this time, continue to monitor hemoglobin and hematocrit. 7. Dyslipidemia. Restart statin when patient is able to tolerate p.o. intake. 8. Diabetes mellitus. Place the patient on insulin sliding scale. Hold metformin at this time secondary to lactic acidosis. 9. Acute respiratory failure, extubated on 12/30/2016, continue oxygen via nasal cannula and breathing treatment 10. History of cirrhosis, continue to monitor LFTs 11. Thrombocytopenia, likely secondary to #10, continue to monitor 12. Elevated ammonia level, continue lactulose, no evidence of encephalopathy at this time, follow-up ammonia level in a.m. For deep venous thrombosis prophylaxis, on sequential compression devices, refrain from using any pharmacologic DVT prophylaxis secondary to gastrointestinal bleed. Plan to discharge to [facility] facility versus acute rehab when cleared by geriatric nurse and attendant campground Palliative care consult poor prognosis Problems: Subjective 24 Hr Interval Summary Free Text/Dictation Patient denies of any chest pain or shortness of breath Minimal abdominal discomfort Minimal p.o. intake Exam/Review of Systems Vital Signs Vitals Vital Signs Date Time Temp Pulse Resp B/P Pulse Ox O2 Delivery O2 Flow Rate FiO2 01/03/17 15:22 2.0 01/03/17 08:09 98.0 97 22 144/77 92 01/03/17 08:00 Nasal Cannula 12/30/16 11:30 30 Intake and Output 01/02/17 01/02/17 01/03/17 15:00 23:00 07:00 Intake Total 650 ml 100 ml Output Total 400 ml Balance 650 ml -300 ml Exam General: The patient is well-developed, Not in acute distress. HEENT: Atraumatic, normocephalic. The pupils are equal and round . Neck: Supple with full range of motion. Chest: Normal expansion of the thorax during inspiration Lungs: Clear to auscultation bilaterally Heart: Normal S1-S2, Regular rhythm and rate. Abdomen: Soft , nontender, nondistended , bowel sounds are present. Extremities: Umbilical hernia, no edema no cyanosis Neurologic: Normal mental status,The patient is awake, alert and oriented . Results Result Diagram: 01/03/17 0940 01/03/17 0703 Results 24 hrs Laboratory Tests Test 01/02/17 17:14 01/02/17 20:56 01/03/17 07:03 01/03/17 08:37 Bedside Glucose 190 144 127 Sodium Level 144 Potassium Level 3.7 Chloride Level 117 H Carbon Dioxide Level 23 Anion Gap 8 Blood Urea Nitrogen 32 H Creatinine 0.90 Glucose Level 138 Calcium Level 8.2 L Test 01/03/17 09:40 01/03/17 12:16 White Blood Count 13.6 H Red Blood Count 3.78 L Hemoglobin 11.9 L Hematocrit 36.8 L Mean Corpuscular Volume 97.4 Mean Corpuscular Hemoglobin 31.5 Mean Corpuscular Hemoglobin Concent 32.3 Red Cell Distribution Width 20.0 H Platelet Count 99 L Mean Platelet Volume 11.1 H Neutrophils % 83.0 H Band Neutrophils % 1.0 Lymphocytes % 8.0 L Monocytes % 8.0 Neutrophils # 11.3 H Lymphocytes # 1.1 Monocytes # 1.1 H Platelet Estimate PLT APPEAR DECREASED Bedside Glucose 162 Medications Medications Current Medications Ondansetron HCl (Zofran Inj) 4 mg Q6H PRN IV NAUSEA AND/OR VOMITING Last administered on 12/31/16 09:52; Admin Dose 4 MG; Start 12/27/16 at 12:00 Acetaminophen (Tylenol Tab) 650 mg Q6H PRN PO PAIN LEVEL 1-3 OR FEVER; Start at 12:00 Acetaminophen (Tylenol Supp) 650 mg Q4H PRN [place] PAIN LEVEL 1-3 OR FEVER; Start 12/27/16 at 12:00 Acetaminophen/ Hydrocodone Bitart ([place] (5/325)) 1 tab Q6H PRN PO PAIN LEVEL 4 -6; Start 12/27/16 at 12:00 Morphine Sulfate (morphine) 1 mg Q4H PRN [place] PAIN LEVEL 7-10 Last administered on 01/01/17 00:26; Admin Dose 1 MG; Start 12/27/16 at 12:00 Docusate Sodium (Colace) 100 mg Q12H PRN PO CONSTIPATION; Start 12/27/16 at 12: 00 Bisacodyl 10 mg 10 mg DAILY PRN [place] CONSTIPATION; Start 12/27/16 at 12:00 Piperacillin Sod/ Tazobactam Sod (Zosyn 2.25gm/ 50ml (Pmx)) 50 ml @ 200 mls/hr Q6 IVPB Last administered on 01/03/17 12:27; Admin Dose 200 MLS/HR; Start 12/27 at 16:00 Miscellaneous Information 1 ea NOTE XX ; Start 12/27/16 at 16:30 Glucose (Glutose) 15 gm Q15M PRN PO DECREASED GLUCOSE; Start 12/27/16 at 16:30 Glucose (Glutose) 22.5 gm Q15M PRN PO DECREASED GLUCOSE; Start 12/27/16 at 16: 30 Dextrose (D50w Syringe) 25 ml Q15M PRN IV DECREASED GLUCOSE; Start 12/27/16 at 16:30 Dextrose (D50w Syringe) 50 ml Q15M PRN IV DECREASED GLUCOSE; Start 12/27/16 at 16:30 Glucagon (Glucagen) 1 mg Q15M PRN IM DECREASED GLUCOSE; Start 12/27/16 at 16:30 Glucose (Glutose) 15 gm Q15M PRN BUCCAL DECREASED GLUCOSE; Start 12/27/16 at 16 :30 Tobramycin Sulfate (Tobrex 0.3% Oph Drop) 1 drop QID BOTH EYES Last administered on 01/03/17 12:28; Admin Dose 1 DROP; Start 12/29/16 at 13:00; Stop 01/05/17 at 12:59 Pantoprazole (Protonix Tab) 40 mg BID@06,18 PO Last administered on 01/03/17 05 :28; Admin Dose 40 MG; Start 01/01/17 at 18:00 Lactulose (Enulose) 20 gm Q8 PO Last administered on 01/02/17 14:33; Admin Dose 20 GM; Start 01/01/17 at 14:00 Diagnostic Test (Pha) (Accu-Chek) 1 02 XX ; Start 01/03/17 at 02:00 OZIEL HAMPTON MD Jan 03, 2017 16:52
[2017-01-03 19:26] VITALS: BP 143/73; RESP 18
--- NOTE | 2017-01-03 21:54 | RADRPT ---
PROCEDURE: Abdominal ultrasound. CLINICAL INDICATION: Abdominal pain TECHNIQUE: Pulliam scale and color doppler ultrasound images of the abdomen. COMPARISON: Abdominal ultrasound 07/15/2016, chest x-ray 12/29/2016 FINDINGS: Normal appearance of the partially visualized pancreas. Normal caliber of the partially visualized aorta. Partial visualization of right-sided pleural effusion. The patient refused the remainder of the examination. IMPRESSION: No definite fluid collections or masses are seen within the abdomen. The patient refused the remain rebecca of the examination. Partial visualization of right-sided pleural effusion. CT scan of the abdomen and pelvis may be useful for further evaluation. RPTAT: AADD .Irving Conley MD, MD Date Time Electronically viewed and signed by .Irving Conley MD, MD on 01/03/2017 21:53 .B/
[2017-01-04] MEDS: PIPER-TAZO 2.25 GM (PMX) 50 ML IVPB SCH ×4 (00:07→18:20)
[2017-01-04] MEDS: ACCUCHECK AT 2AM (Patients on SS coverage) XX SCH (01:23)
[2017-01-04] MEDS: ALBUTEROL/IPRATROPIUM (NEB) 3 ML AMP NEB PRN (01:33)
[2017-01-04 03:13] LABS: AADO2 Arterial 257.7 mmHg (7.0-24.0); Arterial COHb 0.4 % (0.0-3.0); Arterial Fraction of Oxyhgb 92.8 % (93.0-99.0); Arterial HCO3 22.3 mmol/L (22.0-26.0); Arterial MetHb 0.5 % (0.0-1.5); Arterial Total Hemglobin 13.3 g/dl (12.0-18.0); MODE MASK - SIMPLE
[2017-01-04] MEDS: LACTULOSE 30ML CUP PO SCH ×2 (05:20→14:00)
[2017-01-04] MEDS: PANTOPRAZOLE (EC) 40 MG TAB PO SCH ×2 (05:21→18:00)
[2017-01-04] MEDS ORDERED: ALTEPLASE (CATHFLO) 2 MG INJ CATHETER PRN (05:30)
[2017-01-04] MEDS ORDERED: FUROSEMIDE 20 MG INJ IV ONE ×2 (05:30→13:00)
[2017-01-04 06:48] LABS: ADD SCAN DIFF NO
[2017-01-04 07:14] LABS: POTASSIUM 3.3 mmol/L (3.5-5.1)
[2017-01-04 07:17] LABS: CALCIUM 8.1 mg/dl (8.4-10.2); CREATININE 1.05 mg/dl (0.44-1.00)
[2017-01-04 07:20] LABS: BASOPHILS % 0.2 % (0.0-2.0); EOSINOPHILS % 0.2 % (0.0-7.0); HEMATOCRIT 38.6 % (37.0-47.0); HEMOGLOBIN 12.8 g/dl (12.0-16.0); LYMPHOCYTES # 0.8 10^3/ul (0.8-2.9); LYMPHOCYTES % 6.6 % (15.0-51.0); MEAN CORPUSCULAR HEMOGLOBIN 32.4 pg (29.0-33.0); MEAN CORPUSCULAR HGB CONC 33.2 g/dl (32.0-37.0); MEAN CORPUSCULAR VOLUME 97.7 fl (82.0-101.0); MEAN PLATELET VOLUME 10.1 fl (7.4-10.4); MONOCYTE # 0.8 10^3/ul (0.3-0.9); MONOCYTES % 6.5 % (0.0-11.0); NEUTROPHILS % 85.7 % (39.0-77.0); PLATELET COUNT 134 10^3/UL (140-415); RED BLOOD COUNT 3.95 10^6/ul (4.20-5.40); RED CELL DISTRIBUTION WIDTH 20.3 % (11.5-14.5); WHITE BLOOD COUNT 12.8 10^3/ul (4.8-10.8)
[2017-01-04] MEDS: Insulin NOVOLOG SS MILD Algorithm (SS with meals and bedtime) SC SCH ×3 (08:00→17:45)
[2017-01-04 08:11] VITALS: BP 126/66; RESP 22
[2017-01-04] MEDS: TOBRAMYCIN 0.3% 5 ML OPH BOTH EYES SCH ×3 (09:10→18:20)
--- NOTE | 2017-01-04 09:50 | CONS ---
Date/Time of Note Date/Time of Note DATE: 01/04/17 TIME: 09:49 Assessment/Plan Assessment/Plan Chief Complaint/Hosp Course Mrs. Ami Swan presented to the ED secondary to hematemesis. Spoke to patient's son. Per patient's son, he found his mother laying down in the pool of blood. Patient son states his mother has been symptom-free since last EGD in June. He denies she was experiencing any abdominal pain, nausea, vomiting , fever, chills, chest pain, and shortness of breath. Patient patient previously had EGD in June 2016 and had grade IV/IV. Patient noted to have liver cirrhosis but etiology unknown. Patient has PMH of atrial fibrillation and currently on aspirin, type 2 diabetes, and liver cirrhosis. Problems: Additional Assessment/Plan Upper GI bleed controlled * S/P EGD with band ligation x 4 on 12-27-16 of bleeding esophageal varices. She is also bleeding from portal hypertensive gastropathy but no hemostasis is done as the bleeding from this is diffuse and involves the whole stomach. * Anemia * History of atrial fibrillation. * Dyslipidemia. * Diabetes mellitus Plan * Continue PPI therapy * continue present management * Further recommendations pending clinical course * Patient seen in collaboration with Dr. Bishop Consultation Date/Type/Reason Admit Date/Time Dec 27, 2016 at 10:02 Type of Consultation: GI 24 HR Interval Summary Free Text/Dictation Hgb stable Abdominal US neg for ascities DC today Exam/Review of Systems Vital Signs Vitals Vital Signs Date Time Temp Pulse Resp B/P Pulse Ox O2 Delivery O2 Flow Rate FiO2 01/04/17 08:11 97.6 88 22 126/66 91 01/04/17 06:10 8.0 01/04/17 01:33 Nasal Cannula Intake and Output 01/03/17 01/03/17 01/04/17 15:00 23:00 07:00 Intake Total 50 ml 300 ml 50 ml Output Total 200 ml 250 ml Balance 50 ml 100 ml -200 ml Exam Constitutional: alert, frail Psych: nl mood/affect Head: normocephalic Eyes: EOMI, nl conjunctiva, nl lids ENMT: nl external ears & nose, nl lips & teeth, nl nasal mucosa & septum Respiratory: clear to auscultation, normal air movement, 4 L nasal cannula Cardiovascular: regular rate and rhythm Gastrointestinal: Firm, non-tender Musculoskeletal: nl extremities to inspection Neurological: WAITER/WAITRESS ROOM SERVICE II-XII intact Results Result Diagram: 01/04/17 0520 01/04/17 0520 Results 24 hrs Laboratory Tests Test 01/03/17 12:16 01/03/17 18:35 01/03/17 21:02 01/04/17 03:00 Bedside Glucose 162 143 126 Blood Gas Specimen Source Blood arterial Arterial Blood Date Drawn 01/04/2017 3:00:14 AM Arterial Blood pH (Temp corrected) 7.356 Arterial Blood pCO2 (Temp correct) 40.7 Arterial Blood pO2 (Temp corrected) 74.7 L Arterial Blood HCO3 22.3 Arterial Blood Base Excess -3.0 Arterial Blood Oxygen Saturation 93.6 L Mike Test N/A Arterial Blood Gas Puncture Site Right Brachial Arterial Blood Carboxyhemoglobin 0.4 Arterial Blood Methemoglobin 0.5 Blood Gas A-a O2 Differential 257.7 H Oxyhemoglobin Percent 92.8 L Total Hemoglobin 13.3 Blood Gas Temperature 37.0 Blood Gas Modality MASK - SIMPLE FiO2 53.0 Blood Gas Notified Whom LW Blood Gas Notified Time 01/04/2017 3:12:49 AM Test 01/04/17 05:20 01/04/17 07:59 White Blood Count 12.8 H Red Blood Count 3.95 L Hemoglobin 12.8 Hematocrit 38.6 Mean Corpuscular Volume 97.7 Mean Corpuscular Hemoglobin 32.4 Mean Corpuscular Hemoglobin Concent 33.2 Red Cell Distribution Width 20.3 H Platelet Count 134 #L Mean Platelet Volume 10.1 Neutrophils % 85.7 H Lymphocytes % 6.6 L Monocytes % 6.5 Eosinophils % 0.2 Basophils % 0.2 Nucleated Red Blood Cells % 0.0 Neutrophils # 11.0 H Lymphocytes # 0.8 Monocytes # 0.8 Eosinophils # 0.0 Basophils # 0.0 Nucleated Red Blood Cells # 0.0 Sodium Level 149 H Potassium Level 3.3 L Chloride Level 114 H Carbon Dioxide Level 21 Anion Gap 17 #H Blood Urea Nitrogen 41 H Creatinine 1.05 H Glucose Level 157 Calcium Level 8.1 L Bedside Glucose 140 Medications Medications Current Medications Ondansetron HCl (Zofran Inj) 4 mg Q6H PRN IV NAUSEA AND/OR VOMITING Last administered on 12/31/16t 09:52; Admin Dose 4 MG; Start 12/27/16 at 12:00 Acetaminophen (Tylenol Tab) 650 mg Q6H PRN PO PAIN LEVEL 1-3 OR FEVER Last administered on 01/04/17 01:44; Admin Dose 650 MG; Start 12/27/16 at 12:00 Acetaminophen (Tylenol Supp) 650 mg Q4H PRN [place] PAIN LEVEL 1-3 OR FEVER; Start 12/27/16 at 12:00 Acetaminophen/ Hydrocodone Bitart ([place] (5/325)) 1 tab Q6H PRN PO PAIN LEVEL 4 -6; Start 12/27/16 at 12:00 Morphine Sulfate (morphine) 1 mg Q4H PRN IV PAIN LEVEL 7-10 Last administered on 01/01/17 00:26; Admin Dose 1 MG; Start 12/27/16 at 12:00 Docusate Sodium (Colace) 100 mg Q12H PRN PO CONSTIPATION; Start 12/27/16 at 12: 00 Bisacodyl 10 mg 10 mg DAILY PRN [place] CONSTIPATION; Start 12/27/16 at 12:00 Piperacillin Sod/ Tazobactam Sod (Zosyn 2.25gm/ 50ml (Pmx)) 50 ml @ 200 mls/hr Q6 IVPB Last administered on 01/04/17 05:21; Admin Dose 200 MLS/HR; Start 12/27 at 16:00 Miscellaneous Information 1 ea NOTE XX ; Start 12/27/16 at 16:30 Glucose (Glutose) 15 gm Q15M PRN PO DECREASED GLUCOSE; Start 12/27/16 at 16:30 Glucose (Glutose) 22.5 gm Q15M PRN PO DECREASED GLUCOSE; Start 12/27/16 at 16: 30 Dextrose (D50w Syringe) 25 ml Q15M PRN IV DECREASED GLUCOSE; Start 12/27/16 at 16:30 Dextrose (D50w Syringe) 50 ml Q15M PRN IV DECREASED GLUCOSE; Start 12/27/16 at 16:30 Glucagon (Glucagen) 1 mg Q15M PRN IM DECREASED GLUCOSE; Start 12/27/16 at 16:30 Glucose (Glutose) 15 gm Q15M PRN BUCCAL DECREASED GLUCOSE; Start 12/27/16 at 16 :30 Tobramycin Sulfate (Tobrex 0.3% Oph Drop) 1 drop QID BOTH EYES Last administered on 01/04/17 09:10; Admin Dose 1 DROP; Start 12/29/16 at 13:00; Stop 01/05/17 at 12:59 Pantoprazole (Protonix Tab) 40 mg BID@06,18 PO Last administered on 01/04/17 05 :21; Admin Dose 40 MG; Start 01/01/17 at 18:00 Lactulose (Enulose) 20 gm Q8 PO Last administered on 01/04/17 05:20; Admin Dose 20 GM; Start 01/01/17 at 14:00 Diagnostic Test (Pha) (Accu-Chek) 1 XX ; Start 01/03/17 at 02:00 MADIHA PEREZ Jan 04, 2017 09:50
--- NOTE | 2017-01-04 13:39 | RADRPT ---
PROCEDURE: XR Chest. CLINICAL INDICATION: Shortness of breath. TECHNIQUE: Single frontal view. COMPARISON: 12/29/2016. FINDINGS: The endotracheal tube has been removed. The left subclavian vein catheter remains in satisfactory p osition with the tip in the lower superior vena cava. There is a new large right pleural effusion w ith atelectasis throughout most of the right mid and lower lung zones. There is new dense consolida tion in the left mid and lower lung zones. The heart size is normal. There is calcification in the aorta consistent with atherosclerosis. There is no left pleural effusion. There is no pneumothorax. IMPRESSION: 1. Much worse appearance of the lungs with large right pleural effusion and atelectasis throughout most of the right mid and lower lung zones. New dense consolidation in the left mid and lower lung zones. 2. Atherosclerosis. RPTAT: QQ .Chino Swenson MD, MD Date Time Electronically viewed and signed by .Chino Swenson MD, on 01/04/2017 13:39 .R/
--- NOTE | 2017-01-04 14:12 | PN ---
Date/Time of Note Date/Time of Note DATE: 01/04/17 TIME: 14:09 Assessment/Plan VTE Prophylaxis VTE Prophylaxis Intervention: SCD's Lines/Catheters IV Catheter Type (from Nrs): Central Line Central line still needed: Yes Urinary Cath still in place: Yes Reason Cath still needed: other (indicate) Assessment/Plan Chief Complaint/Hosp Course ASSESSMENT AND PLAN: 1. Upper gastrointestinal bleed. Gastroenterology has been consulted. The patient has been placed on IV octreotide and IV Protonix. Status post upper endoscopy and finding of bleeding esophageal varices, s/p band ligation x 4 and oozing of severe portal hypertensive gastropathy, unable to perform banding as the oozing of blood involves the whole stomach. Continue aggressive medical management via octreotide and Protonix No NG tube / insertion of NG tube may displace the bands on the varices and lead to massive variceal bleeding. As per instrument tech will hold off on EGD for today as patient's h/h increased appropriately after transfusion , Also risks of repeating the EGD with patient's unstable hemodynamically is high. We will perform EGD only if patient develops e/o overt GIB 2. Severe metabolic acidosis, status post bicarbonate drip. Pulmonology has been consulted. 3. Hyponatremia. Continue IV fluid. 4. History of atrial fibrillation. Cardiology has been consulted. Continue amiodarone, at this time, we will hold blood pressure since the hypotension. 5. Sepsis , The patient has been started on Zosyn and vancomycin, IV fluid. Stable 6. Anemia, likely secondary to GI bleed status post transfusion packed red blood cell. H&H is more stable at this time, continue to monitor hemoglobin and hematocrit. 7. Dyslipidemia. Restart statin when patient is able to tolerate p.o. intake. 8. Diabetes [address]. [address] the patient on insulin sliding scale. Hold metformin at this time secondary to lactic acidosis. 9. Acute respiratory failure, extubated on 12/30/2016, continue oxygen via facemask and breathing treatment 10. History of cirrhosis, continue to monitor LFTs 11. Thrombocytopenia, likely secondary to #10, continue to monitor 12. Elevated ammonia level, continue lactulose, no evidence of encephalopathy at this time, follow-up ammonia level in a.m. 13. Right-sided pleural effusion, pulmonology has been consulted, plan for right-sided thoracocentesis For deep venous thrombosis prophylaxis, on sequential compression devices, refrain from using any pharmacologic DVT prophylaxis secondary to gastrointestinal bleed. Plan to discharge to residential facility versus acute rehab when cleared by instrument tech and release engineer Palliative care consult poor prognosis Problems: Subjective 24 Hr Interval Summary Free Text/Dictation Patient has been more lethargic than usual Minimal p.o. intake Has required face mask 15 L of oxygen Exam/Review of Systems Vital Signs Vitals Vital Signs Date Time Temp Pulse Resp B/P Pulse Ox O2 Delivery O2 Flow Rate FiO2 01/04/17 08:11 97.6 88 22 126/66 91 01/04/17 06:10 8.0 01/04/17 01:33 Nasal Cannula Intake and Output 01/03/17 01/03/17 01/04/17 15:00 23:00 07:00 Intake Total 50 ml 300 ml 50 ml Output Total 200 ml 250 ml Balance 50 ml 100 ml -200 ml Exam General: The patient is lethargic HEENT: Atraumatic, normocephalic. The pupils are equal and round . Neck: Supple Chest: Normal Lungs: Decreased breath sounds right lower lung field, crackles bilaterally Heart: Normal S1-S2, Regular rhythm and rate. Abdomen: Soft , nontender, nondistended , bowel sounds are present. Extremities: Normal to inspection, +2 edema no cyanosis Neurologic:,The patient is awake, Results Result Diagram: 01/04/17 0520 01/04/17 0520 Results 24 hrs Laboratory Tests Test 01/03/17 18:35 01/03/17 21:02 01/04/17 03:00 01/04/17 05:20 Bedside Glucose 143 126 Blood Gas Specimen Source Blood arterial Arterial Blood Date Drawn 01/04/2017 3:00:14 AM Arterial Blood pH (Temp corrected) 7.356 Arterial Blood pCO2 (Temp correct) 40.7 Arterial Blood pO2 (Temp corrected) 74.7 L Arterial Blood HCO3 22.3 Arterial Blood Base Excess -3.0 Arterial Blood Oxygen Saturation 93.6 L Mike Test N/A Arterial Blood Gas Puncture Site Right Brachial Arterial Blood Carboxyhemoglobin 0.4 Arterial Blood Methemoglobin 0.5 Blood Gas A-a O2 Differential 257.7 H Oxyhemoglobin Percent 92.8 L Total Hemoglobin 13.3 Blood Gas Temperature 37.0 Blood Gas Modality MASK - SIMPLE FiO2 53.0 Blood Gas Notified Whom LW Blood Gas Notified Time 01/04/2017 3:12:49 AM White Blood Count 12.8 H Red Blood Count 3.95 L Hemoglobin 12.8 Hematocrit 38.6 Mean Corpuscular Volume 97.7 Mean Corpuscular Hemoglobin 32.4 Mean Corpuscular Hemoglobin Concent 33.2 Red Cell Distribution Width 20.3 H Platelet Count 134 #L Mean Platelet Volume 10.1 Neutrophils % 85.7 H Lymphocytes % 6.6 L Monocytes % 6.5 Eosinophils % 0.2 Basophils % 0.2 Nucleated Red Blood Cells % 0.0 Neutrophils # 11.0 H Lymphocytes # 0.8 Monocytes # 0.8 Eosinophils # 0.0 Basophils # 0.0 Nucleated Red Blood Cells # 0.0 Sodium Level 149 H Potassium Level 3.3 L Chloride Level 114 H Carbon Dioxide Level 21 Anion Gap 17 #H Blood Urea Nitrogen 41 H Creatinine 1.05 H Glucose Level 157 Calcium Level 8.1 L Test 01/04/17 07:59 01/04/17 12:14 Bedside Glucose 140 129 Medications Medications Current Medications Ondansetron HCl (Zofran Inj) 4 mg Q6H PRN IV NAUSEA AND/OR VOMITING Last administered on 12/31/16 09:52; Admin Dose 4 MG; Start 12/27/16 at 12:00 Acetaminophen (Tylenol Tab) 650 mg Q6H PRN PO PAIN LEVEL 1-3 OR FEVER Last administered on 01/04/17 01:44; Admin Dose 650 MG; Start 12/27/16 at 12:00 Acetaminophen (Tylenol Supp) 650 mg Q4H PRN [place] PAIN LEVEL 1-3 OR FEVER; Start 12/27/16 at 12:00 Acetaminophen/ Hydrocodone Bitart ([place] (5/325)) 1 tab Q6H PRN PO PAIN LEVEL 4 -6; Start 12/27/16 at 12:00 Morphine Sulfate (morphine) 1 mg Q4H PRN IV PAIN LEVEL 7-10 Last administered on 01/01/17 00:26; Admin Dose 1 MG; Start 12/27/16 at 12:00 Docusate Sodium (Colace) 100 mg Q12H PRN PO CONSTIPATION; Start 12/27/16 at 12: 00 Bisacodyl 10 mg 10 mg DAILY PRN [place] CONSTIPATION; Start 12/27/16 at 12:00 Piperacillin Sod/ Tazobactam Sod (Zosyn 2.25gm/ 50ml (Pmx)) 50 ml @ 200 mls/hr Q6 IVPB Last administered on 01/04/17 12:34; Admin Dose 200 MLS/HR; Start 12/27 at 16:00 Miscellaneous Information 1 ea NOTE XX ; Start 12/27/16 at 16:30 Glucose (Glutose) 15 gm Q15M PRN PO DECREASED GLUCOSE; Start 12/27/16 at 16:30 Glucose (Glutose) 22.5 gm Q15M PRN PO DECREASED GLUCOSE; Start 12/27/16 at 16: 30 Dextrose (D50w Syringe) 25 ml Q15M PRN IV DECREASED GLUCOSE; Start 12/27/16 at 16:30 Dextrose (D50w Syringe) 50 ml Q15M PRN IV DECREASED GLUCOSE; Start 12/27/16 at 16:30 Glucagon (Glucagen) 1 mg Q15M PRN IM DECREASED GLUCOSE; Start 12/27/16 at 16:30 Glucose (Glutose) 15 gm Q15M PRN BUCCAL DECREASED GLUCOSE; Start 12/27/16 at 16 :30 Tobramycin Sulfate (Tobrex 0.3% Oph Drop) 1 drop QID BOTH EYES Last administered on 01/04/17 13:43; Admin Dose 1 DROP; Start 12/29/16 at 13:00; Stop 01/05/17 at 12:59 Pantoprazole (Protonix Tab) 40 mg BID@06,18 PO Last administered on 01/04/17 05 :21; Admin Dose 40 MG; Start 01/01/17 at 18:00 Lactulose (Enulose) 20 gm Q8 PO Last administered on 01/04/17 05:20; Admin Dose 20 GM; Start 01/01/17 at 14:00 Diagnostic Test (Pha) (Accu-Chek) 1 ea 02 XX ; Start 01/03/17 at 02:00 OZIEL HAMPTON MD Jan 04, 2017 14:12
--- NOTE | 2017-01-04 17:44 | RADRPT ---
PROCEDURE: XR Chest. CLINICAL INDICATION: Shortness of breath. Post right thoracentesis. TECHNIQUE: Single frontal view. 1728 hours. COMPARISON: 01/04/2017. 1329 hours. FINDINGS: The left subclavian vein catheter remains in satisfactory position. Large right pleural effusion an d bilateral air space disease is unchanged. The heart is enlarged. There is calcification in the aorta consistent with atherosclerosis. There is no left pleural effusion. There is no pneumothorax. IMPRESSION: 1. No pneumothorax following right thoracentesis. 2. No other change from 01/04/2017 at 1329 hours. RPTAT: QQ .Chino Swenson MD, MD Date Time Electronically viewed and signed by .Chino Swenson MD, MD on 01/04/2017 17:43 .R/
[2017-01-04] MEDS ORDERED: LIDOCAINE 1% (MPF) 5 ML VIAL ONE (17:47)
--- NOTE | 2017-01-04 18:14 | CONS ---
DATE OF ADMISSION: 12/27/2016 DATE OF CONSULTATION: 01/04/2017 TYPE OF CONSULTATION: Palliative Care REFERRING PHYSICIAN: Pj Valenzuela MD HISTORY OF PRESENT ILLNESS: This is an 86-year-old female who was admitted to [facility] on 12/27/2016. The patient had presented at that time with upper GI bleed, fluid and electr olyte abnormalities, hyper____, hyponatremia, atrial fibrillation, sepsis syndrome and essentially h as not improved during her hospitalization. The patient has been seen and consulted on by GI, which showed bleeding esophageal ulcers, banding was at that time x4. In the course of this hospitalizat ion, patient was diagnosed with cirrhosis. She has all of the end-stage problems associated it with including elevated ammonia levels, thrombocytopenia, fluid and electrolyte abnormalities and third spacing of fluids at this time. The patient continues to fail from a respiratory standpoint. I was asked to consult and help with plan of care while hospitalized. MEDICATIONS: Please refer to reconciliation sheet. ALLERGIES: NO KNOWN DRUG ALLERGIES. MAJOR MEDICAL PROBLEMS IN THE PAST: Entirely as per history of present illness and what can be obta ined from patient's current medical records. SOCIAL HISTORY: Unknown. FAMILY HISTORY: Unknown. REVIEW OF SYSTEMS: Cannot be obtained. PHYSICAL EXAMINATION: GENERAL: Shows an ill-appearing female in mild to moderate respiratory distress. VITAL SIGNS: Blood pressure 126/66, pulse of 88 and regular, respirations of 22. Initial evaluatio n of the patient, she was, on 01/03/2017, 96% saturation on 2 liters FIO2 and on the day of this dic tation, 91% saturation on 8 liters mask. LUNGS: Bilateral distant breath sounds throughout both lung barton. COR: S1, S2, without S3, S4, murmur, gallop, rub. Normal rate, normal rhythm on examination. ABDOMEN: Grossly benign. NEUROLOGIC: She follows simple commands. She tracks me on examination. ____ are intact. Motor and sensory findings grossly within normal limits. LABORATORY DATA: Laboratory tests have been reviewed. ASSESSMENT AND PLAN: I put out a phone call to the patient's son on 01/03/2017 and made arrangement s to meet him at [facility] at 0830 hours on 01/04/2017. I met patient's son at t hat time. We had discussed in terms of the patient's background, social history. It is clear she d oes not understand the severity of her underlying medical problems. Hopes on the part family member s are that she does not suffer towards the end of her life. She had an acceptable quality of life p rior to this hospitalization. There are no major fears, concerns or worries that I can ascertain fr om patient's family members, or major spiritual or rastafari cultural believes. There was no past e xperience with SIRS, end-stage medical illnesses. Caregivers were patient's family prior to this ho spitalization. Goals of care were discussed with the patient's son in detail. We reviewed current m edical problems, prognosis during this hospitalization, and the fact that she certainly may succumb to her end-stage liver disease and pulmonary pathology at this time. Her prognosis is an extremely poor. Her palliative performance scale is ____. I discussed with the patient's son her ongoing cod e status at this time. He is very tearful and he is in agreement to change her code from a full cod e to just DO NOT RESUSCITATE, but continue with level of care to try to make her as comfortable as p ossible. I did tell him that there is a possibility that she will deteriorate and require more aggr essive end of life care and possibly terminal sedation. Psychosocial support has been given to the patient's son. There are no ethical, legal or moral issues that are involved. Code status has been changed. Dictated By: JONAS TORRES MD, LP/WALT Conf#: [id number] DID#: [id number]
[2017-01-04 18:24] VITALS: BP 108/55; PULSE 55; RESP 16
--- NOTE | 2017-01-04 19:03 | CONS ---
Date/Time of Note Date/Time of Note DATE: 01/04/17 TIME: 18:57 Consult Date/Type/Reason Admit Date/Time Dec 27, 2016 at 10:02 Type of Consultation: Pulm/CCM Subjective Increased work of breathing. Family at bedside. Goals of care discussion with Dr jj Trejo and Anila with plans to be DNR, yet at the time of my assessment family expressed uncertainty. Objective Vital Signs Date Time Temp Pulse Resp B/P Pulse Ox O2 Delivery O2 Flow Rate FiO2 01/04/17 18:24 55 16 108/55 91 Mask 15.0 01/04/17 08:11 97.6 Intake and Output 01/03/17 01/03/17 01/04/17 14:59 22:59 06:59 Intake Total 50 ml 300 ml 50 ml Output Total 200 ml 250 ml Balance 50 ml 100 ml -200 ml Exam HEENT: Neck supple; no JVD; no LAD CVS: RRR, S1 and S2 CHEST: Coarse rhonchi b/L ABD: Soft, NT, + BS EXT: No c/c/e Results/Medications Result Diagram: 01/04/17 0520 01/04/17 0520 Results 24 hrs Laboratory Tests Test 01/03/17 21:02 01/04/17 03:00 01/04/17 05:20 01/04/17 07:59 Bedside Glucose 126 140 Blood Gas Specimen Source Blood arterial Arterial Blood Date Drawn 01/04/2017 3:00:14 AM Arterial Blood pH (Temp corrected) 7.356 Arterial Blood pCO2 (Temp correct) 40.7 Arterial Blood pO2 (Temp corrected) 74.7 L Arterial Blood HCO3 22.3 Arterial Blood Base Excess -3.0 Arterial Blood Oxygen Saturation 93.6 L Mike Test N/A Arterial Blood Gas Puncture Site Right Brachial Arterial Blood Carboxyhemoglobin 0.4 Arterial Blood Methemoglobin 0.5 Blood Gas A-a O2 Differential 257.7 H Oxyhemoglobin Percent 92.8 L Total Hemoglobin 13.3 Blood Gas Temperature 37.0 Blood Gas Modality MASK - SIMPLE FiO2 53.0 Blood Gas Notified Whom LW Blood Gas Notified Time 01/04/2017 3:12:49 AM White Blood Count 12.8 H Red Blood Count 3.95 L Hemoglobin 12.8 Hematocrit 38.6 Mean Corpuscular Volume 97.7 Mean Corpuscular Hemoglobin 32.4 Mean Corpuscular Hemoglobin Concent 33.2 Red Cell Distribution Width 20.3 H Platelet Count 134 #L Mean Platelet Volume 10.1 Neutrophils % 85.7 H Lymphocytes % 6.6 L Monocytes % 6.5 Eosinophils % 0.2 Basophils % 0.2 Nucleated Red Blood Cells % 0.0 Neutrophils # 11.0 H Lymphocytes # 0.8 Monocytes # 0.8 Eosinophils # 0.0 Basophils # 0.0 Nucleated Red Blood Cells # 0.0 Sodium Level 149 H Potassium Level 3.3 L Chloride Level 114 H Carbon Dioxide Level 21 Anion Gap 17 #H Blood Urea Nitrogen 41 H Creatinine 1.05 H Glucose Level 157 Calcium Level 8.1 L Test 01/04/17 12:14 01/04/17 18:17 Bedside Glucose 129 126 Medications Current Medications Ondansetron HCl (Zofran Inj) 4 mg Q6H PRN IV NAUSEA AND/OR VOMITING Last administered on 12/31/16 09:52; Admin Dose 4 MG; Start 12/27/16 at 12:00 Acetaminophen (Tylenol Tab) 650 mg Q6H PRN PO PAIN LEVEL 1-3 OR FEVER Last administered on 01/04/17 01:44; Admin Dose 650 MG; Start 12/27/16 at 12:00 Acetaminophen (Tylenol Supp) 650 mg Q4H PRN TN PAIN LEVEL 1-3 OR FEVER; Start 12/27/16 at 12:00 Acetaminophen/ Hydrocodone Bitart ([place] (5/325)) 1 tab Q6H PRN PO PAIN LEVEL 4 -6; Start 12/27/16 at 12:00 Morphine Sulfate (morphine) 1 mg Q4H PRN IV PAIN LEVEL 7-10 Last administered on 01/01/17 00:26; Admin Dose 1 MG; Start 12/27/16 at 12:00 Docusate Sodium (Colace) 100 mg Q12H PRN PO CONSTIPATION; Start 12/27/16 at 12: 00 Bisacodyl 10 mg 10 mg DAILY PRN TN CONSTIPATION; Start 12/27/16 at 12:00 Piperacillin Sod/ Tazobactam Sod (Zosyn 2.25gm/ 50ml (Pmx)) 50 ml @ 200 mls/hr Q6 IVPB Last administered on 01/04/17 18:20; Admin Dose 200 MLS/HR; Start 12/27 at 16:00 Miscellaneous Information 1 ea NOTE XX ; Start 12/27/16 at 16:30 Glucose (Glutose) 15 gm Q15M PRN PO DECREASED GLUCOSE; Start 12/27/16 at 16:30 Glucose (Glutose) 22.5 gm Q15M PRN PO DECREASED GLUCOSE; Start 12/27/16 at 16: 30 Dextrose (D50w Syringe) 25 ml Q15M PRN IV DECREASED GLUCOSE; Start 12/27/16 at 16:30 Dextrose (D50w Syringe) 50 ml Q15M PRN IV DECREASED GLUCOSE; Start 12/27/16 at 16:30 Glucagon (Glucagen) 1 mg Q15M PRN IM DECREASED GLUCOSE; Start 12/27/16 at 16:30 Glucose (Glutose) 15 gm Q15M PRN BUCCAL DECREASED GLUCOSE; Start 12/27/16 at 16 :30 Tobramycin Sulfate (Tobrex 0.3% Oph Drop) 1 drop QID BOTH EYES Last administered on 01/04/17 18:20; Admin Dose 1 DROP; Start 12/29/16 at 13:00; Stop 01/05/17 at 12:59 Pantoprazole (Protonix Tab) 40 mg BID@06,18 PO Last administered on 01/04/17 05 :21; Admin Dose 40 MG; Start 01/01/17 at 18:00 Lactulose (Enulose) 20 gm Q8 PO Last administered on 01/04/17 05:20; Admin Dose 20 GM; Start 01/01/17 at 14:00 Diagnostic Test (Pha) (Accu-Chek) 1 ea 02 XX ; Start 01/03/17 at 02:00 Assessment/Plan Additional Assessment/Plan 1. Respiratory Distress/Hypoxemic Resp Failure 2. Multilobar pneumonia--likely aspiration. 3. ESLD 4. S/P UGIB RECS: 1. As noted earlier, family at the time of my assessment family expressed uncertainty about goals of care and are not sure about the DNR status. I explained to them that intubation would be mere prolongation of suffering and would result in prolongation of life with poor quality and suggested DNR/DNI and transition to comfort measures given her resp distress. They would like to have a few more minutes to discuss the issue. 40 mins cc time spent with patient and family RUPA SCOTT MD Jan 04, 2017 19:03
--- NOTE | 2017-01-04 19:22 | RADRPT ---
PROCEDURE: US guided right thoracentesis. CLINICAL INDICATION: Shortness of breath. Right pleural effusion. TECHNIQUE: Prior to the procedure, informed consent was obtained. The risks, benefits, and alternatives were e xplained to the patient or the patient's family, including but not limited to bleeding, infection, p ain, visceral or vascular damage, shock, pneumothorax, chest tube placement, air embolism, and . The patient or the patient's family understood the risks and the alternatives and wished to proce ed with the study. Informed written consent was obtained. A procedural pause was performed. The patient's name, date of , and procedure to be performed were verified. Ultrasound of the right hemithorax was performed in the axial and sagittal planes. A right pleural e ffusion is noted. Utilizing ultrasound guidance, optimal location for entry to the pleural cavity wa s ascertained. The overlying skin was prepped and draped in the usual sterile fashion. Approximate ly 10 ml of 1% Xylocaine was injected locally for pain control. Using ultrasound guidance, a 5-Fren ch Yueh catheter was introduced into the right pleural space without difficulty. Fluid was aspirated . COMPARISON: None. FINDINGS: Initial ultrasound demonstrates fluid in the right pleural space. Approximately 0.200 liters of tavarez guineous fluid was aspirated and discarded. A moderate amount of right pleural fluid remains followi ng thoracentesis. IMPRESSION: 1. Ultrasound-guided right thoracentesis. 2. Moderate amount of right pleural fluid remains following thoracentesis. RPTAT: QQ .Chino Swenson MD, MD Date Time Electronically viewed and signed by .Chino Swenson MD, on 01/04/2017 19:21 .R/
[2017-01-04 19:25] VITALS: BP 109/59; RESP 18
[2017-01-04] MEDS ORDERED: LORAZEPAM 2 MG INJ IV PRN (20:00)
[2017-01-04] MEDS: morphine (DRIP) 100 MG/100 ML 100 ML IV SCH ×2 (21:53→23:17)
--- NOTE | 2017-01-05 04:52 | EN ---
Date/Time of Note Date/Time of Note DATE: 01/05/17 TIME: 04:46 Event Note Medicine Medicine Event Note Called to Evaluate Patient - Possibly . Patient is an 86 year old who was placed on Comfort Measues Only yesterday. Family members present, her son and his cousin, state she stopped breathing at 0430. Mrs. Swan did not respond to her name, shoulder shake or sternal rub. Her pupils are fixed and dilated. No spontaneous respirations were heard or observed over 1 minute. No heartbeat and no carotid pulse were heard/felt over 1 minute. I pronounce Ami Swan at 0440 on January 05, 2017. Summary deferred to her Attending Physician LORENA KNIGHT DO Jan 05, 2017 04:52
--- NOTE | 2017-01-05 18:33 | DS ---
DATE OF ADMISSION: 12/27/2016 DATE OF DISCHARGE: 01/05/2017 The patient was on comfort measures, DNR/DNI. The patient on 01/05/2017 at 3:30 ____. The eliu marvin's son, Franco, was at the bedside. CAUSE OF : 1. Cardiopulmonary arrest. 2. Upper gastrointestinal bleed. 3. Severe metabolic acidosis. 4. History of atrial fibrillation. 5. Sepsis. 6. Acute on chronic anemia. 7. Dyslipidemia. 8. Diabetes mellitus. 9. Acute respiratory failure, was extubated on 12/30/2016. 10. History of cirrhosis. 11. Thrombocytopenia. 12. Encephalopathy. 13. Pleural effusion. 14. Hypoxic respiratory failure secondary to multilobar pneumonia, likely aspiration. 15. End-stage liver disease. CONSULTANTS: 1. Brush Polisher, Dr. Rc Hedrick 2. Pulmonology, Dr. Parker Michele 3. Cardiology, Dr. Silver Simon PROCEDURES: Upper endoscopy with finding of bleeding esophageal varices status post band ligation x 4, oozing of severe portal hypertensive gastropathy unable to perform banding, as the oozing of bloo d involved the whole stomach. HOSPITAL COURSE: This was an unfortunate 86-year-old female with past medical history of atrial fib rillation, diabetes mellitus, hypertension, GI bleed, end-stage liver disease, cirrhosis who was fou nd by her family on the floor next to her bed with an episode of hematemesis. 911 was called. The patient was brought into the emergency room via EMS. The patient's blood pressure was found to be 9 8/48. She was immediately placed on Protonix drip, was found to have respiratory failure, was intub ated, was placed on pressors, such as Levophed. Gastroenterology was consulted in ER. The patient was immediately transfused 2 units of packed red blood cells in the ER secondary to her hemoglobin w as found to be 7.3, hematocrit 21.9, WBC 12.9. She was also found to be in severe metabolic acidosi s and was placed on bicarbonate drip. Was admitted to the ICU. She was also found to have sepsis w ith lactic acid of 6. Placed on Zosyn, vancomycin. Application Support Manager, guest services attendant, and cardiolo gist were consulted. The patient had emergent upper endoscopy where she was found to have bleeding of esophageal varices status post band ligation x4, oozing of severe portal hypertensive gastropathy , unable to perform banding as oozing of the blood involved the whole stomach. The patient was cont inued on IV octreotide and Protonix. Remained in ICU. The patient was eventually weaned off from p ressors and was extubated on 12/30/2016. Was placed on facemask and eventually transitioned to nasa l cannula. She was then seen and evaluated by speech therapy and was placed on puree diet. There w as plan for another endoscopy when patient's hemoglobin was noted to be secondary to the first findi ng of the upper endoscopy, although as per guest services attendant, EGD was held since H and H was increa sing and it was stable after transfusion. Also, the risk of repeat EGD with the patient was unstabl e hemodynamically was very high. The patient was essentially seen and evaluated by the palliative c are physician and the family decided to change the patient's code status to DNR/DNI. The patient wa s then transferred to med/surg where she was continued on aggressive medical management. The plan t o transfer the patient to shelter facility. The patient started to have respiratory distres s, which was likely secondary to aspiration pneumonia versus pleural effusion. Although as per fami ly and after the patient was seen and evaluated by the palliative care physician, she was placed on comfort measure, was placed on morphine drip secondary to patient's very poor prognosis and her flory rbidities. The patient was found to have worsening of her respiratory distress. Family did not wan t to proceed with any heroic measures, such as reintubation, after they spoke to the section plotter operator a nd the palliative care physician. The patient on 01/05/2017 at 3:30 a.m. Family was at the [facility]. Dictated By: OZIEL HAMPTON MD PN/NTS Conf#: [id number] DID#: [id number]
== END 2017-01-05 04:40 | disposition expired | DRG 871 ==
LOC: E/R 08:06 → ICU 10:02 → UNDODISIN 12-30 17:01 → MS4 12-31 13:38 → MS2 01-03 01:15
PROVIDERS: ADMIT Family Medicine; ATTEND Family Medicine
PROC: 06L34CZ Occlusion of Esophageal Vein with Extraluminal Device, Percutaneous Endoscopic Approach (ICD-10-PCS; 2016-12-27)
PROC: 0BH17EZ Insertion of Endotracheal Airway into Trachea, Via Natural or Artificial Opening (ICD-10-PCS; 2016-12-27)
PROC: 5A1945Z Respiratory Ventilation, 24-96 Consecutive Hours (ICD-10-PCS; 2016-12-27)
PROC: 02HV33Z Insertion of Infusion Device into Superior Vena Cava, Percutaneous Approach (ICD-10-PCS; principal; 2016-12-27 15:00)
PROC: 0W993ZZ Drainage of Right Pleural Cavity, Percutaneous Approach (ICD-10-PCS; 2017-01-04)
DX: A41.9 Sepsis, unspecified organism (principal); J69.0 Pneumonitis due to inhalation of food and vomit; J96.01 Acute respiratory failure with hypoxia; R57.1 Hypovolemic shock; I85.11 Secondary esophageal varices with bleeding; E87.2 Acidosis; K76.6 Portal hypertension; J90 Pleural effusion, not elsewhere classified; D62 Acute posthemorrhagic anemia; E87.1 Hypo-osmolality and hyponatremia; D64.9 Anemia, unspecified; E78.5 Hyperlipidemia, unspecified; D69.6 Thrombocytopenia, unspecified; E11.22 Type 2 diabetes mellitus with diabetic chronic kidney disease; K31.89 Other diseases of stomach and duodenum; K74.60 Unspecified cirrhosis of liver; E11.42 Type 2 diabetes mellitus with diabetic polyneuropathy; I48.0 Paroxysmal atrial fibrillation; K72.90 Hepatic failure, unspecified without coma; I10 Essential (primary) hypertension; Z51.5 Encounter for palliative care
CPT/HCPCS: 31500; 32555; 36415; 36430; 36600; 70450; 71010; 76700; 80048; 80053; 82140; 82728; 82803; 82962; 83540; 83605; 83735; 84443; 84484; 85014; 85018; 85025; 85610; 85730; 86850; 86900; 86901; 86920; 87081; 92526; 92610; 93005; 93306; 94002; 94003; 94640; 94664; 94770; 96374; 96375; J1940; C9113; J0282; J0330; J0696; J1815; J2060; J2270; J2405; J2543; J3010; J3370; J3480; J7030; J7040; J7042; J7050; J7060; P9016